=== PATIENT | female | born 1960 | race Caucasian/White ===

== ENCOUNTER 2023-07-08 10:37 | Outpatient (AMB) | payer BC, SELFPAY ==
[2023-07-08 10:44] VITALS: BP 110/68; PULSE 70; O2SAT 94; BMI 37.8
--- NOTE | 2023-07-08 10:44 | MHC.OFFVIS ---
Vital Signs 07/08/23 10:44 Height 5 ft 4 in Weight 220 lb BMI 37.8 BP 110/68 Blood Pressure Location Lt brachial Position Sitting Pulse 70 Pulse Source Pulse Oximeter Pulse Oximetry (%) 94 Oxygen Delivery Method Room Air Intake Visit Reasons: Pulmonary Nodules Med Aide Required: No Allergies No Known Allergies Allergy (Verified 07/08/23 10:47) HPI Comments Details: The patient is here for a pulmonary evaluation. The patient is a 62 year woman with the former history of smoking. Apparently she had an almost CT scan of the chest. Back in 2021 the patient was having cough. She did have a CT scan of the chest which I personally reviewed. There was not at [facility] radiology imaging. The patient had multiple pulmonary nodules largest 8 mm in size. Some of the nodules appear to be ground-glass in nature and some degree of pneumonitis. In addition to that she did have some scarring of the right mid and lower area. Primarily in the periphery. The patient denied any radiation exposure or any history of interstitial lung disease. As far as exposures the patient has had allergy testing that has been positive. 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 She quit smoking many years ago. Based on her abnormal CT scan she had a repeat CT scan 01/29/2023 which I personally reviewed. Some of the ground-glass nodular densities subsided suggesting likely that it was a hypersensitivity type of reaction. Could also been smoldering infection. Still though she does have multiple pulmonary nodules largest 1 measuring 6 mm in size. Bilaterally. The patient does have a smoking history and therefore needs to have a repeat CT scan 01/30/2024. The patient also states that she has episodes of wheezing. Intermittently. She does use a rescue inhaler. She also has nasal congestion suggesting chronic allergic rhinitis. She does use nasal sprays. Will go ahead and start her on Singulair to see if that provides her some relief indeed she may have component of asthma. Although currently her respiratory exam is unremarkable. The patient can use the singular seasonally. In addition to that just before leaving the patient mentioned that she just remove the tick this morning. She has not aware of how long she had it for. But did leave a rash. This is concerning for the possibility of tick-borne diseases. The patient throw away the taking therefore we do not have any idea of the appearance. She has not sure if it looked like a deer tick. She is going to call her primary care doctor. Meantime I did send her doxycycline and I did put him for Lyme test. [facility] Medical History (Updated 07/08/23 @ 22:09 by Christian Solo MD) Wheezing Rash Pulmonary nodules Social History (Updated 07/08/23 @ 10:50 by CHARI Stuart) Patient Tobacco Use Status: Former Tobacco user Tobacco use type: Cigarette Years Smoked: 9 Years Review of Systems Const Denies fever(s) Eyes Reports no additional complaints ENT Reports nasal congestion Card Denies chest pain and Reports dyspnea on exertion Resp Reports cough, Reports dyspnea on exertion and Reports wheezing GI Reports no additional complaints Musc Reports no additional complaints Skin/Breast Reports rash Neuro Reports no additional complaints Krzysztof/Lymph Reports no additional complaints Aller/Immun Reports wheezing Physical Exam Vital Signs: Last Vital Signs Pulse 70 07/08/23 10:44 BP 110/68 07/08/23 10:44 Pulse Ox 94 07/08/23 10:44 Oxygen Delivery Method Room Air 07/08/23 10:44 BMI result Body Mass Index 37.8 Const General: comfortable Orientation/consciousness: patient oriented x3 HEENT Head: Yes normocephalic Neck Neck: Yes full ROM and Yes supple Chest Chest palpation & inspection: normal inspection of the chest Resp Effort & Inspection: normal respiratory effort Auscultation: clear to auscultation bilaterally Cardio Heart sounds: S1 normal heart sound present and S2 normal heart sound present GI Palpation (GI): Soft to palpation Skin Lesions: lesion noted Neuro General: patient oriented x3 Extrem General: Yes no clubbing, cyanosis or edema Assessment & Plan Assessment & Plan (1) Tick bite: Code(s): W57.XXXA - Bitten or stung by nonvenomous insect and other nonvenomous arthropods, initial encounter Category: Medical Qualifiers: Encounter type: initial encounter Site of tick bite: thigh Laterality: left Qualified Code(s): S70.362A - Insect bite (nonvenomous), left thigh, initial encounter; W57.XXXA - Bitten or stung by nonvenomous insect and other nonvenomous arthropods, initial encounter (2) Rash: Code(s): R21 - Rash and other nonspecific skin eruption Category: Medical (3) Pulmonary nodules: Code(s): R91.8 - Other nonspecific abnormal finding of lung field Category: Medical (4) Wheezing: Code(s): R06.2 - Wheezing Category: Medical Plan continue JOSE start Singulair CT chest 01/2024 consider PFTS Will call PCP regarding Tick exposure. Left a rash. Not sure how long she had it attached. Sent her Doxycycline and Lyme bloodwork. Should call PCP for further guidance consider allergy testing f/U Jan 2024 Orders: Orders CT chest wo IV con 01/26/24 R91.8 - Other nonspecific abnormal finding of lung field Lyme IgG/IgM w/reflex to WB Today R21 - Rash and other nonspecific skin eruption, W57.XXXA - Bitten or stung by nonvenomous insect and other nonvenomous arthropods, initial encounter Medications: New montelukast (Singulair) 10 mg PO BEDTIME 30 tabs 11RF 30 days J45.909 - Unspecified asthma, uncomplicated doxycycline hyclate 100 mg PO BID 42 tabs 0RF 21 days Coding Level of Care Code New Pt Level 4 (55801) Diagnoses Tick bite of left thigh, initial encounter S70.362A; W57.XXXA Encounter type: initial encounter Site of tick bite: thigh Laterality: left Rash R21 Pulmonary nodules R91.8 Wheezing R06.2 Time Spent (min) 40
== END 2023-07-08 11:12 | disposition home or self-care (01) ==
PROVIDERS: PCP Nurse Practitioner; Referring Provider Nurse Practitioner; Visit Provider Hospitalist
DX: S70.362A Insect bite (nonvenomous), left thigh, initial encounter (principal); W57.XXXA Bitten or stung by nonvenomous insect and other nonvenomous arthropods, initial encounter; R21 Rash and other nonspecific skin eruption; R91.8 Other nonspecific abnormal finding of lung field; R06.2 Wheezing
CPT/HCPCS: 99204

== ENCOUNTER 2023-07-08 10:37 | Outpatient (REF) | payer BC, SELFPAY ==
[2023-07-09 20:28] LABS: Lyme Abs Screen <0.90 index
== END 2023-07-08 10:38 | disposition home or self-care (01) ==
LOC: HO.LAB 10:37
PROVIDERS: PCP Nurse Practitioner; Referring Provider Nurse Practitioner; Visit Provider Hospitalist
DX: S70.362A Insect bite (nonvenomous), left thigh, initial encounter (principal); W57.XXXA Bitten or stung by nonvenomous insect and other nonvenomous arthropods, initial encounter; R21 Rash and other nonspecific skin eruption; R91.8 Other nonspecific abnormal finding of lung field; R06.2 Wheezing
CPT/HCPCS: 36415; 86617; 86618

== ENCOUNTER 2024-03-11 09:03 | Outpatient (AMB) | payer MEDICARE, BC, SELFPAY ==
--- NOTE | 2024-03-11 09:08 | A.OFFVIS_ITS ---
Vital Signs 03/11/24 09:09 Height 5 ft 4 in Weight 221 lb 9.033 oz BMI 38.0 BP 118/66 Blood Pressure Location Rt brachial Position Sitting Pulse 69 Pulse Source Pulse Oximeter Pulse Oximetry (%) 94 Oxygen Delivery Method Room Air Intake Visit Reasons: Pulmonary Nodules Allergies No Known Allergies Allergy (Verified 03/11/24 09:12) HPI Comments Details: The patient is a 63 year woman with the former history of smoking. Apparently she had an almost CT scan of the chest. Back in 2021 the patient was having cough. She did have a CT scan of the chest which I personally reviewed. There was not at [facility] radiology imaging. The patient had multiple pulmonary nodules largest 8 mm in size. Some of the nodules appear to be ground-glass in nature and some degree of pneumonitis. In addition to that she did have some scarring of the right mid and lower area. Primarily in the periphery. The patient denied any radiation exposure or any history of interstitial lung disease. As far as exposures the patient has had allergy testing that has been positive. 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 She quit smoking many years ago. Based on her abnormal CT scan she had a repeat CT scan 01/29/2023 which I personally reviewed. Some of the ground- glass nodular densities subsided suggesting likely that it was a hypersensitivity type of reaction. Could also been smoldering infection. Still though she does have multiple pulmonary nodules largest 1 measuring 6 mm in size . Bilaterally. The patient does have a smoking history and therefore needs to have a repeat CT scan 01/30/2024. The patient also states that she has episodes of wheezing. Intermittently. She does use a rescue inhaler. She also has nasal congestion suggesting chronic allergic rhinitis. She does use nasal sprays. Will go ahead and start her on Singulair to see if that provides her some relief indeed she may have component of asthma. Although currently her respiratory exam is unremarkable. The patient can use the singular seasonally. In addition to that just before leaving the patient mentioned that she just remove the tick this morning. She has not aware of how long she had it for. But did leave a rash. This is concerning for the possibility of tick-borne diseases. The patient throw away the taking therefore we do not have any idea of the appearance. She has not sure if it looked like a deer tick. She is going to call her primary care doctor. Meantime I did send her doxycycline and I did put him for Lyme test. 03/11/2024 the patient is here for a pulmonary follow-up visit. Overall she is doing okay. She still having coughing spells. Sometimes the coughing spells can be pretty significant. She does have the rescue inhaler that she does not use it regularly. She has been using the singular. The patient did have a CT scan of the chest recently and we did personally review it and we also reviewed the other last 2 CT scans prior to that. She has underlying pulmonary nodules that appeared to be fairly unchanged. Although she does have areas of ground-glass opacities suggesting some pneumonitis primarily in the right hemithorax. On further questions she is exposed to mold. She does have a issue with her bathroom that does have ?black mold?. 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 Based on her pulmonary nodules appeared to be inflammatory in nature. Her cough also appears to be more bronchospastic. Will going to start her on Wixela and will also request blood work including hypersensitivity panel allergy testing for mold among others. Will also have the patient have undergo pulmonary function studies and then will reassess in afterwards. [facility] Medical History (Updated 03/11/24 @ 19:57 by Christian Solo MD) Pneumonitis SCOTT (obstructive sleep apnea) Wheezing Rash Pulmonary nodules Social History Patient Tobacco Use Status: Former Tobacco user Tobacco use type: Cigarette Years Smoked: 9 Years Review of Systems Const Denies fever(s) Eyes Reports no additional complaints ENT Reports nasal congestion Card Denies chest pain and Reports dyspnea on exertion Resp Reports cough, Reports dyspnea on exertion and Reports wheezing GI Reports no additional complaints Musc Reports no additional complaints Skin/Breast Reports rash Neuro Reports no additional complaints Krzysztof/Lymph Reports no additional complaints Aller/Immun Reports wheezing Physical Exam Vital Signs: Last Vital Signs Pulse 69 03/11/24 09:09 BP 118/66 03/11/24 09:09 Pulse Ox 94 03/11/24 09:09 Oxygen Delivery Method Room Air 03/11/24 09:09 BMI result Body Mass Index 38.0 Const General: comfortable Orientation/consciousness: patient oriented x3 HEENT Head: Yes normocephalic Neck Neck: Yes full ROM and Yes supple Chest Chest palpation & inspection: normal inspection of the chest Resp Effort & Inspection: normal respiratory effort Auscultation: clear to auscultation bilaterally Cardio Heart sounds: S1 normal heart sound present and S2 normal heart sound present GI Palpation (GI): Soft to palpation Skin Lesions: lesion noted Neuro General: patient oriented x3 Extrem General: Yes no clubbing, cyanosis or edema Assessment & Plan Assessment & Plan (1) Pulmonary nodules: Code(s): R91.8 - Other nonspecific abnormal finding of lung field Category: Medical (2) Wheezing: Code(s): R06.2 - Wheezing Category: Medical (3) SCOTT (obstructive sleep apnea): Code(s): G47.33 - Obstructive sleep apnea (adult) (pediatric) Category: Medical (4) Pneumonitis: Code(s): J98.4 - Other disorders of lung Category: Medical (5) Allergies: Code(s): T78.40XA - Allergy, unspecified, initial encounter Category: Medical Qualifiers: Encounter type: initial encounter Qualified Code(s): T78.40XA - Allergy, unspecified, initial encounter Plan continue JOSE continue Singulair bloodwork and allergies PFTs start Wixela daily f/U 3-4 months Orders: Orders Sjogren's Antibodies Today J98.4 - Other disorders of lung, R91.8 - Other nonspecific abnormal finding of lung field, T78.40XA - Allergy, unspecified, initial encounter Resp Allergy Profile Region I Today J98.4 - Other disorders of lung, R91.1 - Solitary pulmonary nodule, R91.8 - Other nonspecific abnormal finding of lung field, T78.40XA - Allergy, unspecified, initial encounter NADER Reflex Titer and Pattern Today J98.4 - Other disorders of lung, R91.8 - Other nonspecific abnormal finding of lung field, T78.40XA - Allergy, unspecified, initial encounter Cyclic Citrullinated Peptide Today J98.4 - Other disorders of lung, R91.8 - Other nonspecific abnormal finding of lung field, T78.40XA - Allergy, unspecified, initial encounter Immunoglobulin E Today J98.4 - Other disorders of lung, R91.8 - Other nonspecific abnormal finding of lung field, T78.40XA - Allergy, unspecified, initial encounter Hypersensitive Pneumonitis Prf Today J98.4 - Other disorders of lung, R91.8 - Other nonspecific abnormal finding of lung field, T78.40XA - Allergy, unspecified, initial encounter Erythrocyte Sedimentation Rate Today J98.4 - Other disorders of lung, R91.8 - Other nonspecific abnormal finding of lung field, T78.40XA - Allergy, unspecified, initial encounter PFT pulmonary function test Today R06.2 - Wheezing Medications: New fluticasone propion-salmeterol 250-50 mcg/dose (Wixela Inhub) 1 inh inhalation Q12H 60 ea 11RF 30 days Coding Level of Care Code Est Pt Level 4 (17195) Complex EM visit Add On G2211 Diagnoses Pulmonary nodules R91.8 Wheezing R06.2 SCOTT (obstructive sleep apnea) G47.33 Pneumonitis J98.4 Allergy, initial encounter T78.40XA Encounter type: initial encounter Time Spent (min) 17
[2024-03-11 09:09] VITALS: BP 118/66; PULSE 69; O2SAT 94; BMI 38.0
--- OUTSIDE RECORDS SUMMARY | 2024-03-11 12:03 | XMS_ITS | Encounter Summary ---
Author Organization [facility] Address [id number] [place] [phone] Care Team Providers Care Chief Growth Officer Name Role Phone Unavailable Primary Care Provider Unavailabl e Encounter Details Date Type Department Care Team (Late st Contact Info) Description 12/25/2023 Lab Requisition [facility] - Main Lab [address] [place] [phone] Dilma Hart NP [address] [facility] [address] [place] [address] Urinary tract infection, site not specified Social History Tobacco Use Types Packs/Day Years Used Date Smoking Tobacco: Never Assessed Sex and Gender Information Value Date Recorded Sex Assigned at Not on file Gender Identity Not on file Sexual Orientation Not on file documented as of this encounter Plan of Treatment Not on file documented as of this encounter Procedures Procedure Name Priority Date/Time Associated Diagnosis Comments BACTERIAL IDENTIFICATION AND SUSCEPTIBILITY, AEROBIC Routine 12/24/2023 12:00 AM EST Urinary tract infection, site not specified documented in this encounter Results * Bacterial identification and susceptibility, aerobic (12/24/2023 12:00 AM EST) Culture, Bacterial ID and Sensitivity Light Normal Urogenital mireya. 12/25/2023 12:48 PM EST [facility] Other Urine specimen from urinary conduit / Unknown 12/24/2023 12/25/2023 11:54 AM EST Dilma Hart NP LAB MICROBIOLOGY - GENERAL ORDERABLES [facility] [address] [place] [address], documented in this encounter Visit Diagnoses Diagnosis Urinary tract infection, site not specified documented in this encounter
--- OUTSIDE RECORDS SUMMARY | 2024-03-11 12:04 | XMS_ITS | Encounter Summary ---
Author Organization [facility] Address [id number] [place] [phone] Care Team Providers Care Critical Power Install Technician Name Role Phone Unavailable Primary Care Provider Unavailabl e Encounter Details Date Type Department Care Team (Late st Contact Info) Description 02/20/2024 Lab Requisition [facility] - Main Lab [address] [facility] [place] [phone] Berto Andrew PA [address] [facility] [address] [place] [address] Dysuria Social History Tobacco Use Types Packs/Day Years [...] Comments BACTERIAL IDENTIFICATION AND SUSCEPTIBILITY, AEROBIC Routine 02/19/2024 12:00 AM EST Dysuria documented in this encounter Results * (ABNORMAL) Bacterial identification and susceptibility, aerobic (02/19/2024 12:00 AM EST) Culture, Bacterial ID and Sensitivity Escherichia coli(A) AFRICA 02/21/2024 10:55 AM EST [facility] Other Urine specimen from urethra / Unknown 02/19/2024 02/20/2024 10:43 AM EST Narrative Organism Antibiotic Method Susceptibility Escherichia coli Amoxicillin/Clavulanate AFRICA 4 ug/ml: Susceptible Escherichia coli Ampicillin/Sulbactam AFRICA 16 ug/ml: Intermediate Escherichia coli Piperacillin/Tazobactam AFRICA <=4 ug/ml: Susceptible Escherichia coli Cefazolin (Urine) AFRICA 8 ug/ml: Susceptible Escherichia coli Cefoxitin AFRICA <=4 ug/ml: Susceptible Escherichia coli Ceftazidime AFRICA <=0.5 ug/ml: Susceptible Escherichia coli Ceftriaxone AFRICA <=0.25 ug/ml: Susceptible Escherichia coli Cefepime AFRICA <=0.12 ug/ml: Susceptible Escherichia coli Meropenem AFRICA <=0.25 ug/ml: Susceptible Escherichia coli Amikacin AFRICA 2 ug/ml: Susceptible Escherichia coli Gentamicin AFRICA <=1 ug/ml: Susceptible Escherichia coli Ciprofloxacin AFRICA <=0.06 ug/ml: Susceptible Escherichia coli Levofloxacin AFRICA <=0.12 ug/ml: Susceptible Escherichia coli Nitrofurantoin AFRICA <=16 ug/ml: Susceptible Escherichia coli Trimethoprim/Sulfamethoxazole AFRICA >=320 ug/ml: Resistant Berto LUND LAB MICROBIOLOGY - G ENERAL ORDERABLES [facility] [address] [place] [address], documented in this encounter Visit Diagnoses Diagnosis Dysuria documented in this encounter
--- OUTSIDE RECORDS SUMMARY | 2024-03-11 12:04 | XMS_ITS | Data Portability ---
Author Organization [facility], , [facility] Address [address] [place] [address] Care Team Providers Care Rehab Consultant Name Role Phone CATRACHITA PRADO Primary Care Provider [phone] MARTIN COVARRUBIAS Medical Oncologist [facility] Sleep Me dicine [facility] Urologist Assessment No assessment recorded. Plan of Treatment Reminders Order Date Submit Date Provider Last Modified By Organization Details Last Modified Time Details Appointments Wellnes s Visit 30 2024 10:30A M KEVON TAYLOR Not available Not available Not available Lab CBC 2023 024 [facility], [address] [place] [address], [address], 01/22/2024 12:34:49 TSH, serum or plasma 2023 024 [facility], [address] [place], [address], 01/28/2024 12:56:19 Referral orthope dic surgeon referra l - b/l shoulde r pain for last year, recent x ray at [facility] for b/l shoulde rs, has had cortz shots 2023 024 [facility], [address] [facility], [place], [address], 02/12/2024 10:43:[address]i st referra l 2023 024 [email or web address] [facility], [address] [facility], [address], [place], [address], 10/31/2023 13:39:54 cardiol ogist referra l - 63 yo w dyspnea on exertio n 2023 024 [facility], [address], [address], [place], [address], 01/26/2024 10:37:56 sleep medicin e referra l - scott, needs repeat sleep study 2024 025 [facility], [address] [facility], [address], [place], [address], 03/10/2024 09:41:58 Procedures None recorde d. Surgeries None recorde d. Imaging XR, chest - NIGHT SWEATS AND DYSPNEA W EXERTIO N 2023 024 [facility] ([facility]), [address], [place], [place], [address], 01/22/2024 13:21:53 electro cardiog howard 2023 024 [facility], [address], [place], [address], 01/22/2024 13:21:53 US, echocar diogram - 5'4 , 216lbs, no pacerHX OF HTN, AND DYSPNEA ON EXERTIO N 2023 024 [email or web address] [facility], [address] [place], [address], 01/23/2024 14:10:50 XR, chest - persist ent cough x 3 weeks 2024 025 [facility] (Imaging), [address], [place], [address], 02/17/2024 13:51:41 home sleep study - SCOTT and has not had repeat sleep study in several years and has lost weight 2024 025 [email or web address] [facility], [address] [facility], [place], [address], 03/08/2024 12:19:55 Medication Orders trazodo ne 100 mg tablet [address] [facility]43182, [address] [place], [place], [id number], 08/25/2023 12:22:53 Wegovy 2.4 mg/0.75 mL subcuta neous pen injecto r [address]/Ph[facility] #2025, [address] [place], [address], 09/16/2023 15:42:00 buspiro ne 5 mg tablet [address] [facility]26154, [address] [place], [place], [id number], 08/25/2023 12:16:53 lorazep am 0.5 mg tablet [address] [facility] #20485, [address], [place], [id number], 08/25/2023 12:16:57 meloxic am 15 mg tablet [address] [facility] #99841, [address] [place], [place], [id number], 01/23/2024 19:41:01 lidocai ne 5 % topical patch [address] [facility] #92670, [address], [place], [id number], 10/30/2023 15:14:26 ondanse solis 4 mg disinte grating tablet [address] [facility] #95747, [address] [place], [place], [id number], 01/22/2024 11:24:52 lorazep am 0.5 mg tablet [address] [facility] #47126, [address] [place], [place], [id number], 01/22/2024 11:24:56 benzona barboza 200 mg capsule [address] [facility] #32740, [address] [place], [place], [id number], 03/08/2024 08:27:44 codeine 10 mg-guai fenesin 100 mg/5 mL oral liquid [address] [facility] #03210, [address] [place], [place], [id number], 02/17/2024 12:46:48 flutica sone propion ate 50 mcg/act uation nasal spray,s uspensi on [address] [facility] #63028, [address] [place], [place], [id number], 02/17/2024 12:46:52 Wegovy 0.25 mg/0.5 mL subcuta neous pen injecto r [address] [facility] #23836, [address] [place], [place], [id number], 03/08/2024 08:59:26 buspiro ne 10 mg tablet [address] [facility] #65057, [address] [place], [place], [id number], 03/08/2024 08:59:32 Patient TargetsNo targets recorded. Patient Instructions Encounter Date Encounter Id Patient Instructions Last Modified By Organization Details Last Modified Time 08/25/2023 [id number] Information on HEART HEALTH discussed today: Heart disease is the leading cause of in [place]. The [place] [employer] (AHA) recommends at least 150 minutes (2.5 hours) of heart-pumping physical activity per week. Only about one in five adults and teens get enough exercise to maintain good health. Being more active can help all people think, feel and sleep better and perform daily tasks more easily. Visit the [place] [employer] website for more information below: Copy and paste this website address into your browser for more information. https://www.heart .org/en/healthy-l iving/fitness/fit ness-basics/aha-r sfm-vmm-fqqsdkws- bbffnmww-oa-aemwf s A 51.[employer] website for exercise at home discussed today is: Senior Murguia by Agnieszka on Tarisa This link below is a 1 mile walk. She has many different exercise routines. Copy and paste this website address below into your browser for the 1 Mile Walk. https://www.SCYFIX/watch?v=Wy ySxMt4URQ MOVEME NT IS MEDICINE--------- -- Not available 08/25/2023 12:13:52 10/30/2023 [id number] Information on HEART HEALTH discussed today: Heart disease is the leading cause of in [place]. The [place] [employer] (AHA) recommends at least 150 minutes (2.5 hours) of heart-pumping physical activity per week. Only about one in five adults and teens get enough exercise to maintain good health. Being more active can help all people think, feel and sleep better and perform daily tasks more easily. Visit the [place] [employer] website for more information below: Copy and paste this website address into your browser for more information. https://www.heart .org/en/healthy-l iving/fitness/fit ness-basics/aha-r zwp-hqx-tqydrqub- idrygyos-sc-rvtbv s A great [employer] website for exercise at home discussed today is: Senior Blade Aaron on Tarisa This link below is a 1 mile walk. She has many different exercise routines. Copy and paste this website address below into your browser for the 1 Mile Walk. https://www.SCYFIX/watch?v=Wy mCsZx7VNJ MOVEME NT IS MEDICINE--------- -- Not available 10/30/2023 15:15:16 01/22/2024 [id number] Discussed role transition in May; recommend seeing Nancy This dictation was performed using voice recognition software. Word substitution may have occurred, and may have gone unnoticed and uncorrected. Not available 01/25/2024 16:36:05 03/08/2024 [id number] Information on HEART HEALTH discussed today: Heart disease is the leading cause of in [place]. The [place] [employer] (AHA) recommends at least 150 minutes (2.5 hours) of heart-pumping physical activity per week. Only about one in five adults and teens get enough exercise to maintain good health. Being more active can help all people think, feel and sleep better and perform daily tasks more easily. Visit the [place] [employer] website for more information below: Copy and paste this website address into your browser for more information. https://www.heart .org/en/healthy-l iving/fitness/fit ness-basics/aha-r mrc-mqq-dcfvyycs- sdfwwnpu-gd-uuzpc s A great [employer] website for exercise at home discussed today is: Senior Shape by Agnieszka on [employer] This link below is a 1 mile walk. She has many different exercise routines. Copy and paste this website address below into your browser for the 1 Mile Walk. https://www.Money Forward.[employer]/watch?v=Wy oGzZm1KIF MOVEME NT IS MEDICINE--------- -- Not available 03/08/2024 08:54:30 Reason for Referral Orthopedic Surgeon Referral for Bilateral shoulder joint pain b/l shoulder pain for last year, recent x ray at [facility] for b/l shoulders, has had cortz shots Referring Physician: Catrachita Prado, Family Medicine, Encounter Date: 10/30/2023 Physical Therapist Referral for Bilateral shoulder joint pain Referring Physician: Catrachita Prado, Family Medicine, Encounter Date: 10/30/2023 Steeple Jack Referral for Dy spnea on exertion 63 yo w dyspnea on exertion Referring Physician: Catrachita Prado [facility], Encounter Date: 01/22/2024 Sleep Medicine Referral for Sleep apnea scott, needs repeat sleep study Referring Physician: Catrachita Prado [facility], Encounter Date: 03/08/2024 Results Created Date Observation Date Name Description Value Unit Range Abnormal Flag Note LastModifiedBy Organization Detail LastModifiedTime 01/22/2001/22/2024 CBC WBC 8.11 K/??L 3.98-1 0.04 Not Available [address], [address], 01/22/2024 12:34:49 01/22/20 24 01/22/2024 CBC RBC 4.71 M/??L 3.93-5 .22 Not Available [address], [address], 01/22/2024 12:34:49 01/22/20 24 01/22/2024 CBC HGB 14.6 g/dL 11.2-1 5.7 Not Available [address], [address], 01/22/2024 12:34:49 01/22/20 24 01/22/2024 CBC HCT 43.3 % 34.1-4 4.9 Not Available [address], [address], 01/22/2024 12:34:49 01/22/20 24 01/22/2024 CBC MCV 91.9 fL 79.4-9 4.8 Not Available [address], [address], 01/22/2024 12:34:49 01/22/20 24 01/22/2024 CBC MCH 31.0 pg 25.6-3 2.2 Not Available [address], [address], 01/22/2024 12:34:49 01/22/20 24 01/22/2024 CBC MCHC 33.7 g/dL 32.2-3 5.5 Not Available [address], [address], 01/22/2024 12:34:49 01/22/20 24 01/22/2024 CBC plt 217 K/??L 182-36 9 Not Available [address], [address], 01/22/2024 12:34:49 01/22/20 24 01/22/2024 CBC MPV 10.2 fL 9.4-12 .3 Not Available [address], [address], 01/22/2024 12:34:49 01/22/20 24 01/22/2024 CBC neut% 54.5 % 34.0-7 1.1 Not Available [address], [address], 01/22/2024 12:34:49 01/22/20 24 01/22/2024 CBC neut# 4.42 1.56-6 .13 Not Available [address], [address], 01/22/2024 12:34:49 01/22/20 24 01/22/2024 CBC lymph % 31.1 % 19.3-5 1.7 Not Available [address], [address], 01/22/2024 12:34:49 01/22/20 24 01/22/2024 CBC lymph # 2.52 K/??L 1.18-3 .74 Not Available [address], [address], 01/22/2024 12:34:49 01/22/20 24 01/22/2024 CBC mono% 12.5 % 4.7-12 .5 Not Available [address], [address], 01/22/2024 12:34:49 01/22/20 24 01/22/2024 CBC mono# 1.01 0.24-0 .56 high Not Available [address], [address], 01/22/2024 12:34:49 01/22/20 24 01/22/2024 CBC eo% 1.2 % 0.7-5. 8 Not Available [address], [address], 01/22/2024 12:34:49 01/22/20 24 01/22/2024 CBC eo# 0.10 0.04-0 .36 Not Available [address], [address], 01/22/2024 12:34:49 01/22/20 24 01/22/2024 CBC baso% 0.2 % 0.1-1. 2 Not Available [address], [address], 01/22/2024 12:34:49 01/22/20 24 01/22/2024 CBC baso# 0.02 0.00-0 .08 Not Available [address], [address], 01/22/2024 12:34:49 01/22/20 24 01/22/2024 CBC RDW-CV 12.5 % 11.7-1 4.4 Not Available [address], [address], 01/22/2024 12:34:49 01/22/20 24 01/22/2024 CBC Ig% 0.500 % 0.000- 1.500 Ig % >0.5 Indic ates possi ble Left Shift Not Available [address], [address], 01/22/2024 12:34:49 01/22/20 24 01/22/2024 CBC Ig# 0.040 0.000- 0.093 Not Available [address], [address], 01/22/2024 12:34:49 01/22/20 24 01/22/2024 CBC NRBC% 0.0 % 0.0-0. 2 Not Available [address], [address], 01/22/2024 12:34:49 01/22/20 24 01/22/2024 CBC NRBC# 0.000 0.000- 0.012 Not Available [address], [address], 01/22/2024 12:34:49 01/22/20 24 01/23/2024 LIPID PANEL cholesterol 236 mg/dL <200 mg/dl Rand able 200-2 39 mg/dl Borde rline High >240 mg/dl High Not Available [address], [address], 01/23/2024 15:35:40 01/22/20 24 01/23/2024 LIPID PANEL triglyceride s 87 mg/dL <150 mg/dL Nette l 150-1 99 mg/dL Borde rline High 200-4 99 mg/dL High >500 mg/dL Very High Not Available [address], [address], 01/23/2024 15:35:40 01/22/20 24 01/23/2024 LIPID PANEL direct HDL 77 mg/dL <40 mg/dl - Major Risk for CHD >60 mg/dl - Negat dominique Risk for CHD Not Available [address], [address], 01/23/2024 15:35:40 01/22/20 24 01/23/2024 RENAL PANEL glucose 96 mg/dL 70-100 Not Available [address], [address], 01/23/2024 15:35:41 01/22/20 24 01/23/2024 RENAL PANEL BUN 19 mg/dL 7-18 high Not Available [address], [address], 01/23/2024 15:35:41 01/22/20 24 01/23/2024 RENAL PANEL creatinine 0.7 mg/dL 0.8-1. 3 low Not Available [address], [address], 01/23/2024 15:35:41 01/22/20 24 01/23/2024 RENAL PANEL B/C 27.1 ratio Not Available [address], [address], 01/23/2024 15:35:41 01/22/20 24 01/23/2024 RENAL PANEL GFR >=60ML /MIN mL/mi n normal >=60m L/min - Nette l or midly reduc ed <60mL /min- Decre ased kidne y funct ion <15mL /min - Kidne y failu re [facility] calcu lates estim ated Glome rular Filtr ation Rate (eGFR ) using the Chron ic Kidne y Disea se Epide miolo gy Colla borat ion (CKD- EPI) Equat ion (Shea r et. al 2020) as recom cathi d by the Natio nal Kidne y Found ation . eGFR is based on age, serum creat inine , and sex. CKD-E PI does not calcu late eGFR by race, does not apply to child annette (age <18 years ), and shoul d not be used in pregn shiloh. Not Available [address], [address], 01/23/2024 15:35:41 01/22/20 24 01/23/2024 RENAL PANEL sodium 142 mmol/ L 136-14 5 Not Available [address], [address], 01/23/2024 15:35:41 01/22/20 24 01/23/2024 RENAL PANEL potassium 5.1 mmol/ L 3.5-5. 1 Not Available [address], [address], 01/23/2024 15:35:41 01/22/20 24 01/23/2024 RENAL PANEL chloride 101 mmol/ L 96-107 Not Available [address], [address], 01/23/2024 15:35:41 01/22/20 24 01/23/2024 RENAL PANEL anion gap 10.4 5.0-15 .0 Not Available [address], [address], 01/23/2024 15:35:41 01/22/20 24 01/23/2024 RENAL PANEL CO2 31 mmol/ L 21-32 Not Available [address], [address], 01/23/2024 15:35:41 01/22/20 24 01/23/2024 RENAL PANEL calcium 9.3 mg/dL 8.5-10 .3 Not Available [address], [address], 01/23/2024 15:35:41 01/22/20 24 01/23/2024 RENAL PANEL albumin 4.2 g/dL 3.4-5. 0 Not Available [address], [address], 01/23/2024 15:35:41 01/22/20 24 01/23/2024 RENAL PANEL phosphorous 4.00 mg/dL 2.50-4 .90 Not Available [address], [address], 01/23/2024 15:35:41 01/22/20 24 01/23/2024 URIC ACID uric acid 5.0 mg/dL 2.6-6. 0 Not Available [address], [address], 01/23/2024 15:35:42 01/22/20 24 01/23/2024 DIREC T LDL direct LDL 138 mg/dL RISK CATEG ORY LDL GOAL _ CHD or CHD Risk Equiv alent s <100 mg/dl (10-y ear risk >20%) 2+ Risk Facto rs <130 mg/dl (10-y ear risk <= 20%) 0-1 Risk Facto r??? <160 mg/dl ??? Almos t all peopl e with 0-1 risk facto r have a 10 year risk <10%, thus 10 year risk asses ment in peopl e with 0-1 risk facto r is not philipp mccray. Not Available [address], [address], 01/23/2024 15:35:43 01/22/20 24 01/28/2024 TSH TSH 2.30 uIU/m L 0.50-6 .00 The Ameri can Colle ge of Endoc rinol ogy and Ameri can Thyro id Assoc iatio n recom mend goal TSH value s betwe en 0.4-4 .0 mIU/m L. Not Available [address], [address], 01/28/2024 12:56:19 01/22/20 24 01/28/2024 VITAM IN D 25-HY DROXY TOTAL vitamin D 25-hydroxy EIA 33.4 NG/mL 20.0-9 9.9 Thera py is based on measu remen t of total 25-OH D, with level s less than 20 ng/mL indic ative of Vitam in D defic iency . Level s betwe en 20ng/ mL and 30 ng/mL sugge st insuf ficie ncy. Optim al Level s are great er than 30 ng/mL . Not Available [address], [address], 01/28/2024 12:56:20 01/22/20 24 01/22/2024 elect rocar diogr am No observ ation record ed. [facility] [address] [facility], [place], [address], 01/22/2024 15:15:42 01/22/20 24 elect rocar diogr am No observ ation record ed. Not Available 2023 21:05:10 01/22/20 24 01/22/2024 XR, chest CLINIC AL HISTOR Y: Night sweats and LANCE. TECHNI QUE: Fronta l view and latera l view of the chest obtain ed. COMPAR KLEBER: Decemb er 2021, June 09, 2020, Octobe r 2019. FINDIN GS: The heart is normal in size and config uratio n.Ther e is no hilar or medias tinal enlarg ement. There is no focal lung consol idatio n or infilt rate. The bony thorax is intact . IMPRES ENMANUEL: No acute diseas e. Nereyda jackson Physic leo: Mohamud Odell [address] (Imaging) [address] [place], [address], 02/05/2024 08:50:38 02/16/19 25 02/17/2024 XR, chest CLINIC AL HISTOR Y: Persis tent Cough. TECHNI QUE: Fronta l view and latera l view of the chest obtain ed. COMPAR KLEBER: Decemb er 2023 FINDIN GS: The heart is normal in size and config uratio n.Ther e is no hilar or medias tinal enlarg ement. There is no focal lung consol idatio n or infilt rate. The bony thorax is intact . IMPRES ENMANUEL: No acute diseas e. Nereyda jackson Physic leo: Mohamud Odell [facility] (Imaging) [address] [place], [address], 02/24/2024 14:07:58 03/05/19 25 03/04/2024 trans -thor acic echoc ardio gram (TTE) (PROC ) No observ ation record ed. [facility] [address] [place], [address], 03/07/2024 20:03:10 Result Notes None recorded. Problems Name Problem SNOMED Code Status Onset Date Resolution Date Notes Provider Name and Address Organization Details Recorded Time Herpes zoster 0924713 Completed 12/30/2012 Not Available [facility] 3 02:02:58 Cough 35476394 Active Catrachita Prado NP [address] [place] [address], [address] , [facility] 10:15:28 Gastroes ophageal reflux disease 565408726 Active 2016 Catrachita Prado NP [address] [place] [address], [address] , [facility] 2 10:15:28 Irritabl e bowel syndrome 79309692 Active 2016 Catrachita Prado NP [address] [place] [address], [address] , [facility] 2 10:15:28 Divertic ulosis of duodenum 192726782 Active [address] Kahlil Prado NP [address] [place] [address], [address] , [facility] 2 10:15:28 Bursitis of shoulder 823078537 Active 2017 R- dr gonsalez as[ 03/25/17- cortz inj. ] Catrachita Prado NP [address] [place] [address], [address] , [facility] 2 10:15:28 Colonosc opy Active 2018 2016 CSCOPE WNL, REPEAT IN 10 YRS Catrachita Prado NP [address] [place], [address] , [facility] 2 10:15:28 Hemorrho ids 17070662 Active 2018 ON SCOPE 2016. Catrachita Prado NP [address] [place], [address] , [facility] 2 10:15:27 Factor V deficien cy 7213054 Active [address] Jenise Harris for flights over 6 ours per. While flying, get up every 1.5 hours and walk around, increase fluids, and wear compress ion stocking s. Catrachita Prado NP [address] [place] [address], [address] , [facility] 4 20:53:58 Chest pain 50341808 Active 2018 Nuclear stress test wnl, 05/26/18 Catrachita Prado NP [address] [place] [address], [address] , [facility] 10:15:27 Impaired fasting glycemia 824352300 Active 2018 Catrachita Prado NP [address] [place] [address], [address] , [facility] 2 10:15:27 Depressi ve disorder 98899207 Active 2019 Catrachita Prado NP [address] [place] [address], [address] , [facility] 10:15:27 Osteopor osis 88989247 Active [address] Kim Pardo NP [address] [place] [address], [address] , [facility] 2 10:15:27 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 Mild on BA swallow, dr morley, 11/18/19 Catrachita Prado NP [address] [place] [address], [address] , [facility] 10:15:27 Hyperten sive disorder 32975956 Active 2019 Catrachita Prado NP [address] [place] [address], [address] , [facility] 10:15:27 Insomnia 157468838 Active 2020 Catrachita Prado NP [address] [place] [address], [address] , [facility] 2 10:15:27 Ex-smoke r 4074745 Active 2020 Catrachita Prado NP [address] [place] [address], [address] , [facility] 4 21:12:17 Sleep apnea 49189838 Active 2020 cpap Catrachita Prado NP [address] [place], [address] , [facility] 4 11:30:56 Prediabe brandie 219647777 Active 2020 Catrachita Prado NP [address] [place], [address] , [facility] 2 10:15:27 Morbid obesity 150256363 Active 2021 BMI > or = 35 with diagnosi s of hyperten enmanuel RADHAMES Villarreal, [facility] 2 14:21:56 Multiple nodules of lung 662591844 Active 202207/12/23 Dr Fabio olmstead; 01/25/20 CT scan-no further CT recommen ded as nodules have not changed. Stopped smoking in 2009 Catrachita Prado NP [address] [place], [address] , [facility] 4 19:33:38 Gout 44681679 Active 2023 Catrachita Praod NP [address] [place], [address] , [facility] 4 11:27:39 Essentia l hyperten enmanuel 85883312 Active 2023 * Catrachita Prado NP [address] [place], [address] , [facility] 4 16:35:51 Obesity 783771490 Completed 200611/23/2021 Removal Reason: Morbid obesity added to the problem list RADHAMES Villarreal, [facility] 2 14:21:18 Common cold 23847390 Completed 200612/30/2012 Not Available [facility] 3 02:00:30 Chest pain 57545085 Completed 12/30/2012 Catrachita Prado NP [address] [place] [address], [address] , [facility] 2 10:15:27 Temporom andibula r joint disorder 65611453 Active Catrachita Prado NP [address] [place] [address], [address] , [facility] 2 10:15:28 Allergic rhinitis 24665787 Active 2006 Catrachita Prado NP [address] [place] [address], [address] , [facility] 2 10:15:28 Cellulit is and abscess of upper arm 669732613 Completed 200612/30/2012 Not Available [facility] 3 02:03:57 Acute tonsilli tis 31461759 Completed 200612/30/2012 Not Available [facility] 3 02:04:15 Left upper quadrant pain 176561405 Completed 12/30/2012 Not Available [facility] 3 02:03:59 Disorder of hair AND/OR hair follicle Active 2007 Catrachita Prado NP [address] [place] [address], [address] , [facility] 2 10:15:28 Problem Notes None recorded. Procedures Surgical History Date Name Laterality Status Provider Name and Address Organization Details Recorded Time 08/25/19 24 Cardiovascular disease risk reduction counseling completed [place], [address], [facility] 08/25/2023 12:06:40 05/12/19 24 [id number] robel Prado NP [address] [place] [address], [address], [facility] 05/12/2023 15:58:38 04/07/19 24 [id number] robel Prado NP [address] [place] [address], [address], [facility] 04/07/2023 11:44:03 06/12/19 22 prevention-cardiov ascular risk reduction counseling completed Catrachita Prado NP [address] [place] [address], [address], [facility] 06/11/2021 19:15:45 06/12/19 22 prevention-annual alcohol misuse screening completed Catrachita Prado NP [address] [place], [address], [facility] 06/11/2021 19:15:40 06/09/19 21 prevention-cardiov ascular risk reduction counseling completed Gaby Solorzano [facility] 06/08/2020 12:04:02 06/09/19 21 prevention-annual alcohol misuse screening completed Gaby Solorzano [facility] 06/08/2020 12:04:02 01/30/20 16 Colonoscopy completed Catrachita Prado NP [address] [place] [address], [phone], [facility] 02/01/2016 09:00:19 Imaging Results Imaging Date Name Status LastModified by Organization Details LastModified Time 01/22/2024 electrocardiogram completed [address], [address], 01/22/2024 15:15:42 01/22/[address] [facility] Informa tion not available 01/25/2024 21:05:10 01/22/2024 XR, chest completed [address] (Imaging) [address] [place], [id number], 02/05/2024 08:50:38 02/17/2024 XR, chest completed [facility] (Imaging) [address] [place], [address], 02/24/2024 14:07:58 03/04/2024 trans-thoracic echocardiogram (TTE) (PROC) completed [address], [address], 03/07/2024 20:03:10 Procedure Notes None recorded. Medical Equipment None Reported. Allergies Allergen ID Allergen Name Allergen Category Reaction Reaction Severity Criticality Documentation Date Start Date Code Code System Note Provider Name and Address Organization Details Recorded Time 60958 codeine medicatio n itching Not available Not available 02/04/2010 2670 RxNorm Not Available [facility] 1 06:05:41 Medications Name Sig Start Date Stop Date Status Note LastModified by Organization Details LastModified Time Prescript ion - Prior Authoriza tion Request active Not Available Not Available Not Available fluoxetin e 40 mg capsule TAKE 1 CAPSULE BY MOUTH EVERY DAY active Not Available Not Available No t Available amoxicill in 500 mg capsule take 1 capsule by mouth three times a day until finished active Not Available Not Available No t Available buspirone 5 mg tablet TAKE 1 TABLET BY MOUTH TWICE DAILY active Not Available Not Available No t Available desonide 0.05 % topical cream APPLY EXTERNAL LY TO THE AFFECTED AREA TWICE DAILY FOR UP TO 7 DAYS 06/11 completed Not Available Not Available Not Available irbesarta n 150 mg-hydroc hlorothia zide 12.5 mg tablet TAKE 1/2 TABLET BY MOUTH EVERY DAY active Not Available Not Available No t Available trazodone 50 mg tablet TAKE 1 AND 1/2 TABLETS BY MOUTH AT BEDTIME NEEDED 08/24 completed Not Available Not Available Not Available fluconazo le 150 mg tablet TAKE 1 TABLET BY MOUTH THEN REPEAT 72 HOURS 04/07 completed Not Available Not Available Not Available benzonata te 200 mg capsule TAKE 1 CAPSULE BY MOUTH THREE TIMES DAILY FOR 10 DAYS NEEDED FOR COUGH 03/08 completed Not Available Not Available Not Available hydrocodo ne 5 mg-acetam inophen 325 mg tablet take 1 to 2 tablets by mouth every 4 to 6 hours if needed for pain active Pt. states was for dental work only. Not Available Not Available Not Available Keflex 500 mg capsule Take 1 capsule 3 times a day by oral route for 5 days. 08/28 completed Not Available Not Available Not Available fluconazo le 200 mg tablet TAKE 1 TABLET BY MOUTH DAILY 02/16 completed Not Available Not Available Not Available meloxicam 15 mg tablet Take 1 tablet every day by oral route as needed, for severe shoulder pain. 01/22 completed Not Available Not Available Not Available ondansetr on HCl 4 mg tablet TAKE 1 TABLET BY MOUTH EVERY 6 HOURS NEEDED 03/03 completed not taking 09/09/22 SM not taking 02-14-22 SM PRN Not Available Not Available Not Available famotidin e 40 mg tablet 04/07 completed Not Available Not Available Not Available clonazepa m 0.5 mg tablet TAKE 1 TABLET BY MOUTH TWICE DAILY active Not Available Not Available No t Available fluoroura cil 5 % topical cream APPLY A THIN FILM TO AFFECTED AREAS OF LIP TWICE A DAY FOR 10 TO 14 DAYS DIRECTED .WASH HANDS AFTER APPLYING 11/06 completed no longer taking 06/08/20t ng Not Available Not Available Not Available fluoxetin e 10 mg tablet TAKE 1 TABLET BY MOUTH ONCE DAILY 07/15 completed TAKING W/ 20 MG FLUOXETI NE Not Available Not Available Not Available clindamyc in HCl 150 mg capsule TAKE 1 CAPSULE BY MOUTH 4 TIMES A DAY active Not Available Not Available No t Available valacyclo vir 500 mg tablet TAKE 1 TABLET BY MOUTH DAILY active Not Available Not Available No t Available ciproflox acin 500 mg tablet TAKE 1 TABLET BY MOUTH TWICE A DAY WITH FOOD 04/07 completed Not Available Not Available Not Available bupropion HCl SR 100 mg tablet,12 hr sustained -release TAKE 1 TABLET BY MOUTH EVERY DAY 11/06 completed no longer taking 11/06/20t ng-side effects too disrupti ve Not Available Not Available Not Available Prevacid 30 mg capsule,d elayed release TAKE 1 CAPSULE BY MOUTH ONCE DAILY 11/06 completed Not Available Not Available Not Available cefadroxi l 500 mg capsule 06/11 completed Not Available Not Available Not Available famotidin e 20 mg tablet Take 1 tablet twice a day by oral route. 12/22 completed No longer using Not Available Not Available Not Available lorazepam 0.5 mg tablet TAKE 1 TABLET BY MOUTH EVERY DAY NEEDED active Not Available Not Available No t Available trazodone 100 mg tablet TAKE 1 TABLET BY MOUTH EVERY DAY AT BEDTIME active Not Available Not Available No t Available Gladis 180 mg tablet 2008 active Take 1.00 tabs daily Not Available Not Available Not Available benzonata te 100 mg capsule TAKE 1 CAPSULES BY MOUTH THREE TIMES A DAY NEEDED FOR 4 DAYS 02/12 completed prn Not Available Not Available Not Available hyoscyami ne sulfate 0.125 mg tablet 06/08 completed no longer taking 06/08/20t ng Not Available Not Available Not Available tobramyci n 0.3 % eye drops INSTILL 1 DROP IN EACH EYE EVERY 4 HOURS 01/22 completed Not Available Not Available Not Available buspirone 10 mg tablet Take 1 tablet twice a day by oral route. 2024 active Not Available Not Available Not Avai lable hydrocodo ne 7.5 mg-acetam inophen 750 mg tablet active Not Available Not Available Not Available clotrimaz ole-betam ethasone 1 %-0.05 % topical cream APPLY TO AFFECTED AREA AND SURROUND ING AREAS OF SKIN 2 TIMES A DA... (REFER TO PRESCRIP TION NOTES). 12/29 completed not using 12/02/18 sj Not Available Not Available Not Available Alrex 0.2 % eye drops,lydia pension 06/04 completed not using 3 xr Not Available Not Available Not Available lidocaine 5 % topical patch APPLY 1 PATCH BY TOPICAL ROUTE ONCE DAILY (MAY WEAR UP TO 12HOURS. ) active Not Available Not Available No t Available polymyxin B sulfate 10,000 unit-trim ethoprim 1 mg/mL eye drops INSTILL 1 DROP INTO BOTH EYES THREE TIMES DAILY 08/24 completed Not Available Not Available Not Available metronida zole 0.75 % topical cream APPLY THIN LAYER TOPICALL Y TO FACE TWICE DAILY DIRECTED 09/21 completed not taking 06/11/21 ds Not Available Not Available Not Available codeine 10 mg-guaife nesin 100 mg/5 mL Syrup Take 10 millilit ers by oral route at bedtime hours as needed for cough. 2009 active Not Available Not Available Not Avai lable fluoxetin e 10 mg capsule TAKE 1 CAPSULE BY MOUTH EVERY MORNING( TAKE WITH 20 MG CAPSULE TO MAKE 30 MG) 09/21 completed Not Available Not Available Not Available Valtrex 1 gram tablet Take 1 tablet every 12 hours by oral route for 5 days. 10/23 completed Not Available Not Available Not Available omeprazol e 20 mg capsule,d elayed release Take 1 capsule every day by oral route. 12/29 completed only takes as needed 12/02/18 sj Not Available Not Available Not Available monteluka st 10 mg tablet TAKE 1 TABLET BY MOUTH AT BEDTIME active Not Available Not Available No t Available codeine 10 mg-guaife nesin 100 mg/5 mL oral liquid TAKE 10 ML BY MOUTH AT BEDTIME NEEDED FOR COUGH active Not Available Not Available No t Available hydrochlo rothiazid e 25 mg tablet take 1 tablet by mouth once daily 01/21 completed Not Available Not Available Not Available mupirocin 2 % topical ointment 2007 active Take 1.00 applics twice daily Not Available Not Available Not Available mirtazapi ne 15 mg tablet take 1 tablet by mouth daily if needed active Not Available Not Available No t Available diazepam 10 mg tablet TAKE 1 TABLET BY MOUTH 1 HOUR BEFORE PROCEDUR E DIRECTED . 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 TO HAVE PREDATOR CONTROL TRAPPER ON DAY OF PROCEDUR E active Not Available Not Available No t Available lisinopri l 10 mg-hydroc hlorothia zide 12.5 mg tablet TAKE 2 TABLETS BY MOUTH EVERY DAY 07/02 completed Not Available Not Available Not Available estradiol 0.01% (0.1 mg/gram) vaginal cream PRN 03/03 completed Not Available Not Available Not Available albuterol sulfate HFA 90 mcg/actua tion aerosol inhaler INHALE 2 INHALATI ONS BY MOUTH EVERY 4 HOURS NEEDED active Not Available Not Available No t Available fluocinon layla 0.05 % topical cream APPLY TOPICALL Y TO THE AFFECTED AREA TWICE DAILY FOR UP TO 2 WEEKS active Not Available Not Available No t Available ondansetr on 4 mg disintegr ating tablet DISSOLVE 1 TABLET ON THE TONGUE EVERY 8 HOURS NEEDED active Not Available Not Available No t Available fluoxetin e 20 mg capsule TAKE ONE CAPSULE BY MOUTH EVERY MORNING WITH 10 MG DOSE TO MAKE 30 MG DAILY 11/06 completed Not Available Not Available Not Available fluticaso ne propionat e 50 mcg/actua tion nasal spray,lydia pension SHAKE LIQUID AND USE 2 SPRAYS IN EACH NOSTRIL EVERY DAY FOR POST NASAL DRIP active Not Available Not Available No t Available doxycycli ne hyclate 100 mg tablet TAKE 1 TABLET BY MOUTH TWICE DAILY FOR 21 DAYS 08/24 completed Not Available Not Available Not Available dicyclomi ne 10 mg capsule 05/02 completed Not Available Not Available Not Available naproxen 500 mg tablet active Not Available Not Available Not Available diazepam 5 mg tablet 03/03 completed Not Available Not Available Not Available amoxicill in 500 mg-potass ium clavulana te 125 mg tablet TAKE 1 TABLET BY MOUTH 2 TIMES A DAY 08/24 completed Not Available Not Available Not Available tobramyci n 0.3 %-dexamet hasone 0.1 % eye drops,lydia pension INSTILL 1 DROP INTO BOTH EYES FOUR TIMES A DAY 11/06 completed Not Available Not Available Not Available hydroxyzi ne pamoate 25 mg capsule Take 1 capsule every day by oral route as needed. 05/02 completed Not Available Not Available Not Available enoxapari n 40 mg/0.4 mL subcutane ous syringe INJECT 40 MG UNDER THE SKIN DAILY PRIOR TO FLIGHT AND PRIOR TO RETURN FLIGHT active Not Available Not Available No t Available cyclospor ine 0.05 % eye drops in a dropperet te INSTILL 1 DROP INTO BOTH EYES TWICE A DAY 03/03 completed Not Available Not Available Not Available nitrofura ntoin monohydra te/macroc rystals 100 mg capsule TAKE 1 CAPSULE BY MOUTH TWICE DAILY 03/08 completed Not Available Not Available Not Available trospium 20 mg tablet TAKE 1 TABLET BY MOUTH TWICE DAILY IN THE MORNING AND IN THE EVENING ON AN EMPTY STOMACH DIRECTED FOR URGENCY/ FREQUENC Y 06/04 completed no longer taking 05/03/22 Not Available Not Available Not Available Vesicare 10 mg tablet take 1 tablet by mouth once daily 01/21 completed prn Not Available Not Available Not Available eszopiclo ne 1 mg tablet Take 1 tablet every day by oral route at bedtime for 7 days. active Not Available Not Available No t Available chlorhexi dine gluconate 0.12 % mouthwash RINSE TWICE A DAY for 3 weeks as directed active Not Available Not Available No t Available omeprazol e active Not Available Not Available Not Available Zantac 12/29 completed not taking 12/02/18 sj Not Available Not Available Not Available hydrocodo ne 7.5 mg-acetam inophen 300 mg tablet take 1 to 2 tablets by mouth every 4 to 6 hours if needed for pain active Not Available Not Available No t Available Symbicort 160 mcg-4.5 mcg/actua tion HFA aerosol inhaler inhale 2 puffs by mouth twice a day 11/06 completed Not Available Not Available Not Available Citracal + Vitamin D Maximum 315 mg-6.25 mcg (250 unit) tablet TAKE 1 TABLET BY MOUTH TWICE DAILY 03/03 completed not taking 09/09/22 SM not taking 10/29/22 SM not taking 1-5-23 SM Not Available Not Available Not Available GaviLyte- N 420 gram oral solution 05/02 completed Not Available Not Available Not Available Zyrtec 10 mg capsule Take by oral route. 03/03 completed prn Not Available Not Available Not Available Afluria 8615-9016 (PF) 45 mcg (15 mcg x 3)/0.5 mL intramusc ular syringe inject 0.5 millilit er intramus cularly active Not Available Not Available No t Available Fluvirin 5573-6028 (PF) 45 mcg (15 mcg x 3)/0.5 mL IM syringe inject 0.5 millilit er intramus cularly 11/06 completed Not Available Not Available Not Available Afluria 8564-1121 (PF) 45 mcg(15 mcg x 3)/0.5 mL intramusc ular syringe inject 0.5 millilit er intramus cularly 04/24 completed Not Available Not Available Not Available Flucelvax Quad (PF) 60 mcg (15 mcg x 4)/0.5 mL IM syringe inject 0.5 millilit ers intramus cularly 12/02 completed Not Available Not Available Not Available Fluzone Quad (PF) 60 mcg (15 mcg x 4)/0.5 mL IM syringe ADM 0.5ML IM UTD 11/06 completed Not Available Not Available Not Available Pataday Twice Daily Relief 03/03 completed not taking 09/09/22 SM not taking 1-5-23 SM Not Available Not Available Not Available Wegovy 2.4 mg/0.75 mL subcutane ous pen injector INJECT 2.4 MG EVERY WEEK BY SUBCUTAN EOUS ROUTE FOR 90 DAYS. active Not Available Not Available No t Available Wegovy 1.7 mg/0.75 mL subcutane ous pen injector INJECT 1.7 MG SUBCUTAN EOUSLY ONE TIME PER WEEK 08/24 completed Not Available Not Available Not Available Wegovy 1 mg/0.5 mL subcutane ous pen injector ADMINIST ER 1 MG UNDER THE SKIN EVERY WEEK FOR 4 WEEKS 08/24 completed Not Available Not Available Not Available Wegovy 0.25 mg/0.5 mL subcutane ous pen injector Inject 0.25 mg every week by subcutan eous route. 2024 active Not Available Not Available Not Avai lable Wegovy 0.5 mg/0.5 mL subcutane ous pen injector ADMINIST ER 0.5 MG UNDER THE SKIN EVERY WEEK active Not Available Not Available No t Available Tyrvaya 0.03 mg/spray nasal spray INSTILL 1 SPRAY IN EACH NOSTRIL TWICE DAILY APPROXIM ATELY 12 HOURS APART active Not Available Not Available No t Available Paxlovid 300 mg (150 mg x 2)-100 mg tablets in a dose pack TAKE 3 TABLETS BY MOUTH TWICE DAILY FOR 5 DAYS 02/19 completed stopped 01/08/22 ds Not Available Not Available Not Available Ozempic 0.25 mg or 0.5 mg (2 mg/3 mL) subcutane ous pen injector active Not Available Not Available Not Available Vitals Date Recorded Body height Provider Name an d Address Organization Details Last Updated DateTime 08/25/2023 163.2 cm Sumaya villarreal [facility] 08/25/2023 11:34:57 Date Recorded Body mass index (BMI) Body weight Provider Name and Address Organization Details Last Updated DateTime 08/25/2023 37.8 kg/m2 522137.51 g Sumaay Stokes [facility] 08/25/2023 11:37:14 Date Recorded Heart rate Provider Name an d Address Organization Details Last Updated DateTime 08/25/2023 77 /min Sumaya villarreal [facility] 08/25/2023 11:42:21 Date Recorded Body height Provider Name an d Address Organization Details Last Updated DateTime 10/30/2023 [address] [facility] 10/30/2023 14:35:39 Date Recorded Body mass index (BMI) Body weight Provider Name and Address Organization Details Last Updated DateTime 10/30/2023 37.5 kg/m2 67111.02 g Gaby StewartGreen, Susanna [facility] 10/30/2023 14:36:54 Date Recorded Heart rate Provider Name an d Address Organization Details Last Updated DateTime 10/30/2023 80 /min Gaby Solorzano Susanna [facility] 10/30/2023 14:37:25 Date Recorded Body height Provider Name an d Address Organization Details Last Updated DateTime 01/22/2024 163.2 cm Josselyn De La Cruz MA [facility] 01/22/2024 09:57:53 Date Recorded Body mass index (BMI) Body weight Provider Name and Address Organization Details Last Updated DateTime 01/22/2024 36.9 kg/m2 35655.4 manuel Arcos DorothyJERONIMO [facility] 01/22/2024 09:58:01 Date Recorded Heart rate Provider Name an d Address Organization Details Last Updated DateTime 01/22/2024 74 /min Josselynmickey De La CruzJERONIMO [facility] 01/22/2024 09:59:12 Date Recorded Body height Provider Name an d Address Organization Details Last Updated DateTime 02/17/2024 163.2 cm Delmis Jenkins MA [facility] 02/17/2024 12:21:14 Date Recorded Oxygen saturation Oxygen saturation in Arterial blood by Pulse oximetry Provider Name and Address Organization Details Last Updated DateTime 02/17/2024 96 % 96 % Delmis Diaznateishan JERONIMO [facility] 02/17/2024 12:23:40 Date Recorded Heart rate Provider Name an d Address Organization Details Last Updated DateTime 02/17/2024 66 /min Delmis Diazcaty [facility] 02/17/2024 12:23:38 Date Recorded Body temperature Provider Name a nd Address Organization Details Last Updated DateTime 02/17/2024 98.2 [degF] Delmis Jenkins [facility] 02/17/2024 12:24:07 Date Recorded Body weight Provider Name an d Address Organization Details Last Updated DateTime 02/25/2024 97395.4 manuel Pineda, NICKEL OPERATOR [address] [place] [address], [phone] 02/25/2024 10:27:22 Date Recorded Body height Provider Name an d Address Organization Details Last Updated DateTime 03/08/2024 163.2 cm Jeanna Hook [facility] 03/08/2024 08:04:03 Date Recorded Heart rate Provider Name an d Address Organization Details Last Updated DateTime 03/08/2024 65 /min Jeanna Hook [facility] 03/08/2024 08:06:39 Date Recorded Body mass index (BMI) Body weight Provider Name and Address Organization Details Last Updated DateTime 03/08/2024 37.7 kg/m2 934855.01 g Catrachita Prado, NICKEL OPERATOR [address] [place] [address], [phone], [facility] 03/08/2024 08:25:38 Date Recorded Systolic blood pressure Diastolic blood pressure Provider Name and Address Organization Details Last Updated DateTime 08/25/2023 114 mm[Hg] 68 mm[Hg] Sumaya tSokes [facility] 08/25/2023 11:41:57 Date Recorded Systolic blood pressure Diastolic blood pressure Provider Name and Address Organization Details Last Updated DateTime 10/30/2023 108 mm[Hg] 64 mm[Hg] Gaby Solorzano [facility] 10/30/2023 14:38:12 Date Recorded Systolic blood pressure Diastolic blood pressure Provider Name and Address Organization Details Last Updated DateTime 01/22/2024 110 mm[Hg] 68 mm[Hg] Josselyn De La Cruz [facility] 01/22/2024 09:59:05 Date Recorded Systolic blood pressure Diastolic blood pressure Provider Name and Address Organization Details Last Updated DateTime 02/17/2024 128 mm[Hg] 76 mm[Hg] Delmis Jenkins [facility] 02/17/2024 12:23:12 Date Recorded Systolic blood pressure Diastolic blood pressure Provider Name and Address Organization Details Last Updated DateTime 03/08/2024 122 mm[Hg] 68 mm[Hg] Jeanna Hook [facility] 03/08/2024 08:07:42 Social History Question Answer Notes LastModified by Organization Details LastModified Time Tobacco Smoking Status Former Smoker Quit 2009 wasnt daily smoker. started at 17, would have a few cigs / week. never smoked a pack a day. Catrachita Prado NP [address] [place], [phone], [facility] 04/07/2023 11:33:23 What Is Your Level Of Alcohol Consumption? Moderate Information not available 11/25/2012 What Is Your Level Of Caffeine Consumption? Occasional Information not available 12/13/2014 How Much Tobacco Do You Chew? None Information not available 11/25/2012 What Type Of Diet Are You Following? REGULAR Information not available 12/13/2014 Which Illicit Or Recreational Drugs Have You Used? No Information not available 12/13/2014 Do You Or Have You Ever Used E-cigarettes Or Vape? Never Used Electronic Cigarettes Information not available 11/11/2019 What Is Your Occupation? [employer] Information not available 12/27/2010 When Did You Quit Smoking? 11-15yearssi samina ette Quit In 2009 Information not available 12/27/2021 How Many Days In The Past Year Have You Had A Heavy Drinking Consumption (4+ Female, 5+ Male)? 12 Information not available 07/22/2014 Are There Any Guns Present In Your Home? No [email or web address] Information not available 12/27/2010 Live Alone Or With Others? With Others Information not available 07/22/2014 CSRP - Narcotics No [email or web address] Information not available 08/23/2016 CSRP Contract Signed And Discussed Yes Dc Per EC 08/23/16 Information not available 07/31/2011 Does The Patient Have Difficulty Speaking Bhutanese? No Information not available 07/22/2014 Does The Patient Have Difficulty Reading Bhutanese? No Information not available 07/22/2014 Patient Has Health Care Proxy Signed And In Chart Yes [email or web address] Information not available 04/30/2018 Marital Status Information not available 12/27/2010 Mosquito Repellent Used Routinely Yes Information not available 12/27/2010 What Was The Date Of Your Most Recent Tobacco Screening? 03/08/2024 [email or web address] Information not available 03/08/2024 How Many Children Do You Have? 3 Randi [eye Issue][place]- [employer] [facility]; Jesse 16 [facility]- [employer], Kortney-[employer]; Jim/Portia- [employer]. Information not available 11/28/2010 Seat Belts Used Routinely Yes Information not available 12/27/2010 Smoke Alarm In Home Yes Information not available 12/27/2010 Do You Or Have You Ever Used Smokeless Tobacco? Never Used Smokeless Tobacco Information not available 11/11/2019 General Stress Level Medium Information not available 12/13/2014 Do You Use Sunscreen Routinely? Yes [email or web address] Information not available 12/27/2010 Do You Or Have You Ever Used Any Other Forms Of Tobacco Or Nicotine? No Information not available 09/21/2021 Sex: Unknown Functional Status None recorded. Mental Status None recorded. Family History Relationship Description Onset Age of this Age Resolved Age Notes LastModified by Organization Details LastModified Time Father Myocardial infarction d49 Congen ital heart anomal y. had severa l MD's. Not available 05/27/2018 11:45:46 Mother Malignant tumor of breast 45 previo usly record ed as Cancer -Breas t [email or web address] Not available 12/13/2014 17:05:24 Mother Hypertensive disorder d 72-cir rhosis (previ ously record ed as Hypert ension ) [email or web address] Not available 12/13/2014 17:05:24 Mother Diabetes mellitus dDiabe brandie Not available 08/23/2016 09:54:47 Mother Cirrhosis of liver d cirrho sis 72 ?hep c Not available 01/21/2017 13:58:35 Brother Problem a/w [email or web address] Not available 12/13/2014 17:05:24 Sister Problem factor V Leiden , pulmon naun emboli sm Not available 01/21/2017 13:57:20 Sister Problem Not available 13:57:30 Maternal Grandmother Cerebrovascu lar accident d 87 ca- unknow n type [email or web address] Not available 12/13/2014 17:05:24 Maternal Grandfather Unrelated d 80's [email or web address] Not available 04/2014 17:05:24 Paternal Grandmother Unrelated d40's heart issue [email or web address] Not available 12/13/2014 17:05:24 Paternal Grandfather Unrelated d70's heart, smoker hwzorek Not available 12/13/2014 17:05:24 Paternal Grandfather Myocardial infarction d in laste 70's Not available 05/27/2018 11:45:36 Notes:1 bro 1 sis Medical History Condition Response Diverticulosis Y HEMATOLOGIC Y METABOLIC Y Gynecological HistoryNo gynecological history recorded. Obstetrics History GPAL:G 0 P 0 0 0 0 Immunizations Vaccine Type Date Status Note Provider Nam e and Address Organization Details Recorded Time Influenza, split virus, trivalent, preservative 1 completed Not Available [facility] 02/27/2019 02:33:04 influenza, unspecified formulation 7 completed Not Available [facility] 10/11/2022 10:57:57 influenza, unspecified formulation 7 completed Not Available [facility] 10/11/2022 10:57:57 Influenza, split virus, trivalent, PF 3 completed Not Available [facility] 02/27/2019 02:34:58 Influenza, split virus, trivalent, preservative 2 completed Not Available [facility] 10/11/2022 10:57:57 Influenza, split virus, quadrivalent, PF 6 completed Not Available [facility] [facility] 02/27/2019 02:27:06 influenza, unspecified formulation 4 completed Not Available [facility] 10/11/2022 10:57:57 influenza, unspecified formulation 5 completed Not Available [facility] 10/11/2022 10:57:57 Influenza, split virus, quadrivalent, PF 8 completed Not Available [facility] 02/27/2019 02:35:35 Tdap 0 completed Not Available [facility] 02/27/2019 02:15:21 influenza, unspecified formulation 7 completed Not Available [facility] 10/11/2022 10:57:57 Influenza, split virus, quadrivalent, preservative 9 completed Not Available [facility] 10/11/2022 10:57:57 Td (adult), 2 Lf tetanus toxoid, preservative free, adsorbed 1 completed Catrachita Prado NP [address] [place] [address], [phone], [facility] 06/08/2020 13:00:53 Influenza, split virus, quadrivalent, PF 1 completed CHARI Swain, [facility] 11/06/2020 09:14:54 Influenza, split virus, quadrivalent, preservative 0 completed Not Available [facility] 10/11/2022 10:57:57 COVID-19, mRNA, LNP-S, PF, 30 mcg/0.3 mL dose 1 completed Not Available [facility] 10/11/2022 10:57:57 COVID-19, mRNA, LNP-S, PF, 30 mcg/0.3 mL dose 1 completed Not Available [facility] 10/11/2022 10:57:57 Influenza, split virus, quadrivalent, PF 3 completed Catrachita Prado NP [address] [place] [address], [phone], [facility] 02/19/2022 10:49:43 Influenza, split virus, trivalent, PF 4 completed Catrachita Prado NP [address] [place] [address], [phone], [facility] 10/30/2023 14:51:57 COVID-19, mRNA, LNP-S, PF, 30 mcg/0.3 mL dose 1 completed Not Available [facility] 10/11/2022 10:57:57 Past Encounters Encounter ID Performer Location Encounter Start Date Encounter Closed Date Diagnosis/Indication Diagnosis SNOMED-CT Code Diagnosis ICD10 Code Diagnosis Note [id number] , [facility], OFFICE [address] [place] [address] 6 07/14/2006 10:59:34 07/14/2006 13:28:34 [id number] [facility] - [facility] [address] [place] [facility] [place] [address] 12/05/2006 07:48:33 12/05/2006 08:18:35 [id number] [facility], OFFICE [address] [place] [facility] [place] [address] 12/15/2006 15:55:31 03/02/2008 02:02:29 [id number] [facility], OFFICE [address] [place] [address] 12/20/2006 10:00:52 03/02/2008 02:02:29 [id number] [facility], OFFICE [address] [place] [facility] [place] [address] 01/20/2007 15:36:08 03/02/2008 02:02:29 [id number] [facility], OFFICE [address] [place] [facility] [place] [address] 10/13/2007 11:29:37 03/02/2008 02:02:29 [id number] [facility], OFFICE [address] [place] [facility] [place] [address] 10/20/2007 10:50:50 03/02/2008 02:02:29 [id number] [facility], OFFICE [address] [place] [facility] [place] [address] 10/26/2007 15:08:30 03/02/2008 02:02:29 [id number] [facility], OFFICE [address] [place] [facility] [place] [address] 08/26/2008 09:04:58 09/01/2008 12:01:30 [id number] [facility] - [facility] [address] [place] [facility] [place] [address] 10/28/2008 09:14:43 10/28/2008 11:11:53 [id number] [facility], OFFICE [address] [facility] [place] [address] 08/18/2009 16:25:26 08/23/2009 15:22:10 [id number] [facility], OFFICE [address] [facility] [place] [address] 08/23/2009 10:18:10 08/28/2009 09:07:59 [id number] [facility], OFFICE [address] [place] [facility] [place] [address] 10/04/2009 16:30:11 10/09/2009 12:51:17 [id number] [facility], OFFICE [address] [place] [address] 02/04/2010 09:55:51 02/06/2010 08:32:17 [id number] [facility] [address] [facility] [place] [facility] [place] [address] 02/05/2010 14:02:39 02/06/2010 10:30:24 [id number] [facility], OFFICE [address] [facility] [place] [facility] [place] [address] 6 11/28/2010 10:08:18 11/28/2010 11:22:18 [id number] [facility], OFFICE [address] [facility] [place] [facility] [place] [address] 04/29/2011 14:58:16 04/29/2011 15:34:52 [id number] [facility], OFFICE [address] [facility] [place] [facility] [place] [address] 07/31/2011 17:04:25 08/01/2011 06:50:27 [id number] Catrachita Prado NP , [facility], OFFICE [address] [facility] [place] [facility] [place] [address] 12/03/2011 11:10:52 12/03/2011 12:04:00 [id number] Logan Romero , [facility], OFFICE [address] [facility] [place] [facility] [place] [address] 05/05/2012 09:33:31 05/05/2012 10:24:42 [id number] Catrachita Prado NP , [facility], OFFICE [address] [facility] [place] [facility] [place] [address] 09/09/2012 16:33:02 09/09/2012 17:06:41 [id number] Hyacinth Lanza , [facility], OFFICE [address] [place] [facility] [place] [address] 10/15/2012 17:05:10 10/16/2012 06:53:06 Backache [id number] Shelley Darling NP , [facility], OFFICE [address] [place] [address] 10/27/2012 09:55:16 10/27/2012 10:20:06 Herpes zoster [id number] , [facility], OFFICE [address] [place] [address] 6 11/25/2012 13:34:26 11/25/2012 14:24:23 Influenza vaccine needed [id number] 106 Depressive disorder 81360206 Impaired f asting glycemia 247090577 Adult heal th examination 366933503 see Risk Assesment and Lifestyle Change Couseling section above Obesity 136882905 Lipoma of skin 550916983 [id number] Chery Mar FP, [facility], OFFICE [address] [place] [address] 02/16/2013 16:29:04 02/19/2013 15:42:52 Obesity 095309601 [id number] Catrachita Prado NP FP, [facility], OFFICE [address] [place] [address] 6 02/17/2013 12:12:21 02/17/2013 13:34:09 Anxiety 90375365 [id number] Catrachita Prado NP FP, [facility], OFFICE [address] [place] [address] 6 02/23/2013 16:00:42 02/24/2013 14:55:52 Obesity 237496648 [id number] Catrachita Prado NP FP, [facility], OFFICE [address] [place] [address] 6 03/02/2013 16:02:58 03/03/2013 13:38:47 Obesity 903084397 [id number] Lula VELEZ, [facility], OFFICE [address] [place] [id number] 6 07/20/2013 13:48:42 07/20/2013 14:43:35 Adult health examination 665950703 see Risk Assessment and Lifestyle Change Counseling section above Counseling [id number] Impaired f asting glycemia 502569424 [id number] CHARI Swain FP, [facility], OFFICE [address] [place] [address] 6 11/15/2013 14:01:04 11/15/2013 14:54:07 Depressive disorder 39135234 Stable on meds. Cont w/ current meds. Insomnia 375793600 Switc h to trazodone. Bladder mu scle dysfunction - overactive 757052027 Stable on meds. Cont w/ current meds. [id number] Blanca Phan , [facility], OFFICE [address] [place] [address] 6 12/02/2013 08:20:14 12/02/2013 09:09:15 Dizziness [id number] [facility] [id number] Fabiola Diogo , [facility], OFFICE [address] [place] [address] 6 03/15/2014 13:20:45 03/15/2014 14:16:19 Insomnia 650849729 Switch to vistaril. [id number] [facility], OFFICE [address] [place] [address] 6 07/22/2014 10:03:12 07/22/2014 11:21:33 Adult health examination 567091179 see Risk Assessment and Lifestyle Change Counseling section above Counseling [id number] Screening for malignant neoplasm of cervix 163318628 Obesity 360880179 [id number] Kaylen Martin , [facility], OFFICE [address] [place] [address] 6 11/03/2014 16:50:44 11/03/2014 17:54:35 Lifestyle 051116008 Candidiasis of mouth 48160314 Chelitis Hyperlipidemia 68663258 Cont to work on eating a mediterrae nan diet. Impaired f asting glycemia 767767797 Continue to work on healthy eating. Weight loss will help with lowering your sugar. Depressive disorder 74876650 Stable on meds. Cont w/ current meds. [id number] Lizandro James MD , [facility], OFFICE [address] [place] [address] 6 12/13/2014 16:07:56 12/13/2014 17:04:36 Acute upper respiratory infection 27410026 J06.9 Educated patient that URI is a viral illness of the upper airways. It is not bacterial and does not benefit from antibiotic s. Average duration of URI is 7-10 days but in a recent trial, treatment at 7-10 days of illness with antibiotic s, intranasal steroids, or placebo did not alter natural history at 3 weeks. Recommende d symptomati c treatments including NSAIDS, semi-uprig ht sleep position, antihistam huma at HS, limited course of nasal sympathomi metics and/or cough syrups, and nasal saline rinses with soft squeeze bottle or Neti pot. Return for fevers > 101 for 3 days, worsening sinus pain, or failure to resolve in 2-4 weeks. [id number] Priscilla VELEZ, [facility], OFFICE [address] [place] [address] 6 12/26/2014 12:11:43 12/26/2014 15:22:13 Acute upper respiratory infection 35975289 J06.9 Educated patient that URI is a viral illness of the upper airways. It is not bacterial and does not benefit from antibiotic s. Average duration of URI is 7-10 days but in a recent trial, treatment at 7-10 days of illness with antibiotic s, intranasal steroids, or placebo did not alter natural history at 3 weeks. Recommende d symptomati c treatments including NSAIDS, semi-uprig ht sleep position, antihistam huma at HS, limited course of nasal sympathomi metics and/or cough syrups, and nasal saline rinses with soft squeeze bottle or Neti pot. Return for fevers > 101 for 3 days, worsening sinus pain, or failure to resolve in 2-4 weeks. Cough 12856494 R05 [id number] JUNE Fuller, [facility], OFFICE [address] [place] [address] 6 11/07/2015 13:47:27 11/07/2015 14:40:24 Adult health examination 271678247 Z00.00 see Risk Assessment and Lifestyle Change Counseling section above Counseling 993277323 Z71 .9 Impaired f asting glycemia 457123215 R73.01 Continue to work on healthy eating. Weight loss will help with lowering your sugar. Restless legs 77213317 G 25.81 Insomnia 709935404 G47.0 0 Active or passive immunization 067482299 Z23 [id number] JUNE Fuller, [facility], OFFICE [address] [place] [address] 6 12/19/2015 13:19:14 12/19/2015 15:58:21 Anxiety 61073330 F41.9 [id number] Catrachita Prado NP FP, [facility], OFFICE [address] [place] [phone] 6 05/02/2016 13:37:49 05/03/2016 15:50:07 Anxiety 46932189 F41.9 Insomnia 727293562 G47.0 0 Adult heal th examination 587340897 Z00.00 see Risk Assessment and Lifestyle Change Counseling section above [id number] Catrachita Prado NP FP, [facility], OFFICE [address] [place] [address] 6 08/23/2016 09:10:05 08/23/2016 10:06:38 Impaired fasting glycemia 350086604 R73.01 Continue to work on healthy eating. Weight loss will help with lowering your sugar. Mixed hyperlipidemia 267 840687 E78.2 [id number] Catrachita Prado NP , [facility], OFFICE [address] [place] [phone] 6 01/21/2017 13:25:09 01/21/2017 14:27:57 Adult health examination 619346604 Z00.00 see Risk Assessment and Lifestyle Change Counseling section above Counseling 744876289 Z71 .9 [id number] Yudy Romero MD , [facility], OFFICE [address] [place] [address] 04/24/2017 12:11:16 04/25/2017 09:37:20 Cough 06562479 R05 probably post viral, RTO if worsens or SOB. has used tessalon, albuterol adn delsym in past for cough,. albuterol was best [id number] Agnieszka [place] , [facility], OFFICE [address] [place] [address] 10/22/2017 10:24:18 10/22/2017 11:25:44 Active or passive immunization 811852922 Z23 Anxiety 39222445 F41.9 -discd deep breathing- can use RackWare for relaxation Fatigue 08608371 R53.83 -check labs Low back pain 928994425 M54.5 -to see Dr Bo -tylenol and ice as needed [id number] Justin Morocho MD , [facility], OFFICE [address] [place] [address] 6 04/29/2018 10:38:48 04/29/2018 11:58:06 Obesity 473953755 E66.9 Depression screening 171 304610 Z13.31 Chest pain 81320893 R07. 9 [id number] Agnieszka [place] , [facility], OFFICE [address] [place] [address] 6 05/27/2018 11:05:54 05/27/2018 14:03:05 Adult health examination 264550393 Z00.00 see Risk Assessment and Lifestyle Change Counseling section above Counseling 049335286 Z71 .9 Depression screening 171 585359 Z13.89 depression screening tool administer ed, entered into emr, scored and discussed, time greater than 7.5 minutes Anxiety 31614273 F41.9 -discd deep breathing- can use RackWare for relaxation [id number] Agnieszka [place] , [facility], OFFICE [address] [place] [address] 6 08/25/2018 08:57:33 08/25/2018 09:41:59 Morbid obesity 610530095 E66.01 -will work on losing wt and eating more fruits and vegiesCons idering WW. Active or passive immunization 257465722 Z23 Asthma 036155820 J45.90 9 - Impaired f asting glycemia 723547573 R73.01 Continue to work on healthy eating. Weight loss will help with lowering your sugar. Increased blood pressure 52717985 R03.0 See below. [id number] Lizandro James MD , [facility], OFFICE [address] [place] [id number] 6 10/13/2018 14:14:34 10/14/2018 13:55:52 Anxiety 76023064 F41.9 -discd deep breathing- can use RackWare for relaxation -discussed increase in dementia on lorazepam Snoring 03768007 R06.83 Essential hypertension 03870492 I10 Factor V deficiency 4320 005 D68.2 -While flying, get up every 1.5 hours and walk around, increase fluids, and wear compressio n stockings. [id number] Justin Morocho MD , [facility], OFFICE [address] [place] [phone] 6 12/02/2018 14:44:13 12/02/2018 15:17:21 Acute upper respiratory infection 01310032 J06.9 Educated patient that URI is a viral illness of the upper airways. It is not bacterial and does not benefit from antibiotic s. Average duration of URI is 7-10 days but in a recent trial, treatment at 7-10 days of illness with antibiotic s, intranasal steroids, or placebo did not alter natural history at 3 weeks. Recommende d symptomati c treatments including NSAIDS, semi-uprig ht sleep position, antihistam huma at , limited course of nasal sympathomi metics and/or cough syrups, and nasal saline rinses with soft squeeze bottle or Neti pot. Return for fevers > 101 for 3 days, worsening sinus pain, or failure to resolve in 2-4 weeks. [id number] Lizandro James MD , [facility], OFFICE [address] [place] [phone] 6 12/29/2018 08:50:26 12/29/2018 09:47:43 Essential hypertension 52355210 I10 Gastroesop hageal reflux disease 566993132 K21.9 -trial of lemon juice and prn famotidine [id number] Justin Morocho MD , [facility], OFFICE [address] [place] [phone] 6 01/20/2019 13:33:35 01/20/2019 15:04:46 Acute upper respiratory infection 47201871 J06.9 Cough 48550278 R05 looks like uri, lungs CLEAR. If SOB, or fever or persists another week, would consdier CXR [id number] Lizandro James MD , [facility], OFFICE [address] [place] [phone] 6 02/12/2019 10:45:22 02/12/2019 13:14:01 Essential hypertension 88249461 I10 Morbid obesity 438219993 E66.01 -will work on losing wt and eating more fruits and vegiesCons idering WW. [id number] Justin Morocho MD , [facility], OFFICE [address] [place] [phone] 6 04/07/2019 14:13:25 04/07/2019 16:00:16 Essential hypertension 82097812 I10 [id number] Justin Morocho MD , [facility], OFFICE [address] [place] [address] 06/07/2019 09:01:09 06/10/2019 14:59:53 Essential hypertension 24911966 I10 After a discussion of treatment and medication options, which included considerat ion of the best practices in medicine, a medical plan was provided. The patient's opinions and concerns were included in this treatment plan and goal. 1. Discussed Blood Pressure goals. 2. BP GOAL is under 130/80. Patient IS AT GOAL at home. 3. Reviewed sodium, cardiovasc ular exercise, maintainin g appropriat e weight. Monitor BP at home. Call if BP is consistent ly over 150/90. 4. Continue w/ medication discussed. Patient is in agreement w/ this plan. Call w/ any concerns. 5. Follow up in 2 months. Major depr essive disorder 015559126 F32.9 -stable-co ntinue w/ meds Seasonal a llergic rhinitis 420321768 J30.2 -stable on zyrtec- see instructio ns below [id number] Nicole Wynne NP , [facility], OFFICE [address] [place] [address] 11/11/2019 10:35:40 11/12/2019 09:00:41 Pleuritic pain 3089661 R07.81 Mid sternal pain, worse with inhaling, coughing or movement when in bed. Concerned for clot as she has Factor V leiden and was in car extensivel y last few days.Also discussed ?indigesti on as she has IBS and ate pizza/bage ls in [facility], but she reports indigestio n does not usually last this long.Will have her come into office, assess lungs and order chest Xray - see that visit note for addt'l info. [id number] Priscilla Dinh MD , [facility], OFFICE [address] [place] [address] 11/11/2019 13:28:16 11/12/2019 08:56:10 Pleuritic pain 4351540 R07.81 Mid sternal pain, worse with inhaling, coughing or movement when in bed. Concerned for clot as she has Factor V leiden and was in car extensivel y last few days.Also discussed ?indigesti on as she has IBS and ate pizza/bage ls in [facility], but she reports indigestio n does not usually last this long.Will have her come into office, assess lungs and order chest Xray. Cough & pleuritic pain - [place] in [place] several days - will order COVID test to R/o.discus sed concerning sx and when to seek ED/UC and pt states understand ing - including jaw pain, worsening chest pain, tingling to hand/finge rs [id number] Lizandro James MD , [facility], OFFICE [address] [place] [address] 12/23/2019 16:28:37 01/18/2020 17:55:02 Anxiety 13734703 F41.9 -discd deep breathing- can use RackWare for relaxation -continue to walk-discu ssed increase in dementia on lorazepam Essential hypertension 16767634 I10 After a discussion of treatment and medication options, which included considerat ion of the best practices in medicine, a medical plan was provided. The patient's opinions and concerns were included in this treatment plan and goal. 1. Discussed Blood Pressure goals. 2. BP GOAL is under 130/80. Patient IS AT GOAL at home. 3. Reviewed sodium, cardiovasc ular exercise, maintainin g appropriat e weight. Monitor BP at home. Call if BP is consistent ly over 150/90. 4. Continue w/ medication discussed. Patient is in agreement w/ this plan. Call w/ any concerns. 5. Follow up in 2 months. Insomnia 679992966 G47.0 0 -STABLE ON MEDS [id number] Lizandro James MD , [facility], OFFICE [address] [place] [address] 02/22/2020 12:00:04 02/22/2020 15:37:17 Essential hypertension 62401793 I10 After a discussion of treatment and medication options, which included considerat ion of the best practices in medicine, a medical plan was provided. The patient's opinions and concerns were included in this treatment plan and goal. 1. Discussed Blood Pressure goals. 2. BP GOAL is under 130/80. Patient IS NOT AT GOAL at home. 3. Reviewed sodium, cardiovasc ular exercise, DASH diet, maintainin g appropriat e weight. Monitor BP at home. Call if BP is consistent ly over 150/90. 4. Continue w/ medication discussed. Patient is in agreement w/ this plan. Call w/ any concerns. 5. Follow up in 3 months. 6. Patient will call in- in 1 week after checking blood pressures at home Depressive disorder 2908 9007 F32.0 -stable on medication Insomnia 745516891 G47.0 0 -STABLE ON MEDS Factor V deficiency 4320 005 D68.2 -While flying, get up every 1.5 hours and walk around, increase fluids, and wear compressio n stockings. [id number] Lizandro James MD , [facility], OFFICE [address] [place] [address] 06/08/2020 12:01:33 06/09/2020 10:36:24 Adult health examination 404674571 Z00.00 see Risk Assessment and Lifestyle Change Counseling section above; Cardiovasc ular risk reduction was discussed including benefits and risks of aspirin, exercise goals, healthy eating and healthy weight . Discussion greater than 7.5 minutes. Depression screening 171 250614 Z13.31 depression screening tool administer ed, entered into emr, scored and discussed, time greater than 7.5 minutes Screening for alcohol abuse 654158474 Z13.39 Counseling 228760484 Z71 .89 Essential hypertension 04593204 I10 After a discussion of treatment and medication options, which included considerat ion of the best practices in medicine, a medical plan was provided. The patient's opinions and concerns were included in this treatment plan and goal. 1. Discussed Blood Pressure goals. 2. BP GOAL is under 130/80. Patient IS at home. 3. Reviewed sodium, cardiovasc ular exercise, DASH diet, maintainin g appropriat e weight. Monitor BP at home. Call if BP is consistent ly over 150/90. 4. Continue w/ medication discussed. Patient is in agreement w/ this plan. Call w/ any concerns. 5. Follow up in 3 months. Active or passive immunization 753177315 Z23 Insomnia 232952865 G47.0 0 -STABLE ON MEDS Snoring 72201279 R06.83 After a discussion of treatment and medication options, which included considerat ion of the best practices in medicine, a medical plan was provided. The patient's opinions and concerns were included in this treatment plan and goal. -Number to sleep medicine given and patient instructed to schedule the appointmen t. Referral completed. -If this specialty office requires [facility] to schedule the appointmen t the patient will call our office back and we will have the referrals department schedule it. -Will call with any new concerns or worsening symptoms. Cough 39264179 R05 Fatigue 09991019 R53.83 -check labs-WORK ON HEALTHY EATING-chandler l w any worsening symptoms. [id number] Lizandro Montgomery MD , [facility], OFFICE [address] [place] [phone] 6 11/06/2020 09:03:50 11/07/2020 11:21:35 Depressive disorder 17913406 F32.0 Essential hypertension 90078715 I10 After a discussion of treatment and medication options, which included considerat ion of the best practices in medicine, a medical plan was provided. The patient's opinions and concerns were included in this treatment plan and goal. 1. Discussed Blood Pressure goals. 2. BP GOAL is under 130/80. Pt is NOT at goal. 3. Reviewed sodium, cardiovasc ular exercise, maintainin g appropriat e weight. Monitor Bp at home. Call if BP is consistent ly over 150/90. 4. Continue w/ medication discussed. Patient is in agreement w/ this plan. Call w/ any concerns. 5. Follow up in months. Active or passive immunization 780046874 Z23 Prediabetes 472777900 R7 3.03 Anxiety 87165384 F41.9 -discd deep breathing- can use RackWare or insight timer for relaxation -continue to walk-discu ssed increase in dementia on lorazepam- follow up in one month Hypertensive disorder 38 429813 I10 [id number] Christina Cadet RD, LDN Nutrition -[facility] [address] [place] [address] 11/16/2020 07:59:44 11/17/2020 09:36:50 Prediabetes 457400641 R73.03 Nutrition Diagnosis: {{Excessiv e oral intake (NI 2.2) Exces sive fat intake (NI 5.6.2) Kristin ppropriate Intake of fats (NI 5.6.3) Exc essive carbohydra te intake (NI 5.8.2) Kristin ppropriate intake of types of carbohydra te (NI 5.8.3) Inc onsistent carbohydra te intake (NI 5.8.4) Irvine dequate fiber intake (NI 5.8.5) Alt ered nutrition related laboratory values (NC 2.2)* Over weight/obe sity (NC 3.3) Unint ended weight gain (NC 3.4) Food and nutrition related knowledge deficit (NB 1.1) Not ready for diet/lifes tyle changes (NB 1.3) Self monitoring deficit (NB 1.4) Limit ed adherence to nutrition related recommenda tions (NB 1.6) Nutri tion diagnosis no longer appropriat e}}related to: {{food and nutrition related knowledge deficit, specifical ly? lack of food planning, purchasing and preparatio n skills psy chological causes, specifical ly? physiolo gical causes requiring timing and consistenc y of carbohydra brandie lack of willingnes s to modify previous nutrition recommenda tions inap propriate food preparatio n practices inability or unwillingn ess to purchase or consume fiber containing foods econ omic constraint s that limiting appropriat e foods phys ical inactivity * not ready for diet/lifes tyle changes ex cessive energy intake lac k of prior exposure to accurate nutrition- related informatio n prior exposure to incorrect informatio n inapprop riate intake of concentrat ed sweets and refined carbohydra brandie chroni c use of medication known to cause weight gain loss of appetite awareness medication s that increase appetite, e.g. unwil ling or disinteres jag in reducing l ack of or limited access to healthful food choices fo od and nutrition compliance limitation s}}as evidenced by: self reported dietary recall, with BMI 38, A1C 5.6%, FBS 114 and new dx prediabete s Assessment : Initial virtual nutrition visit for pt with prediabete s, obesity and high BP. She acknowledg es being a healthy eater, but has a sedentary activity level. 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 Occasional sweets, and thinks her daily habit of 2 (regular) gilson ales is unhealthy and realizes needs to change (70 gm sugar - 17 tsp/day). Open to having more seltzer and water. Plans to start walking. Would like to reduce BP meds and lower DM risk, with family hx. Weight goal: 200 lb. Pt counseled on consistent carb diet and reduction of carbs and calories. Covered: - Meal planning basics: choosemypl ate, protein+ca rb combinatio ns, regular meals- Options to increase fiber including whole grains, fruits and vegetables - Role of fiber and protein in stabilizin g blood sugars and providing fullness- Role of a 5-10 % weight loss on reducing insulin resistance and diabetes risk- Portion control guidelines - Importance of incorporat ing 150 minutes or more of regular physical activity/w [place] Handouts: Prediabete s and diabetes (ADA); [place] [facility] Prediabete s; blank food diary form, Mediterran sagar Diet, 10 tips for thoughtful eating, Hunger and fullness scale, Eating right for a healthy weight, Plant based protein review (Nutrition Action) Time spent counseling : 55 minutes Patient agreed to this visit via [employer] secure telehealth platform due to the COVID -19 pandemic. Patient understand s this is a scheduled visit and the usual procedures with regard to billing and confidenti ality apply.Gilma ent was notified that [facility] location: homeDuring the visit the patient? s medical history and medical record were reviewed. [id number] Christina Cadet RD, LDN Nutrition -[facility] [address] [place] [address] 12/25/2020 11:12:55 12/25/2020 19:23:55 Prediabetes [id number] R73.03 Nutrition Diagnosis: {{Excessiv e oral intake (NI 2.2) Exces sive fat intake (NI 5.6.2) Kristin ppropriate Intake of fats (NI 5.6.3) Exc essive carbohydra te intake (NI 5.8.2) Irvine ppropriate intake of types of carbohydra te (NI 5.8.3) Inc onsistent carbohydra te intake (NI 5.8.4) [place]vine dequate fiber intake (NI 5.8.5) Alt ered nutrition related laboratory values (NC 2.2)* Over weight/obe sity (NC 3.3) Unint ended weight gain (NC 3.4) Food and nutrition related knowledge deficit (NB 1.1) Not ready for diet/lifes tyle changes (NB 1.3) Self monitoring deficit (NB 1.4) Limit ed adherence to nutrition related recommenda tions (NB 1.6) Nutri tion diagnosis no longer appropriat e}}related to: {{food and nutrition related knowledge deficit, specifical ly? lack of food planning, purchasing and preparatio n skills psy chological causes, specifical ly? physiolo gical causes requiring timing and consistenc y of carbohydra brandie lack of willingnes s to modify previous nutrition recommenda tions inap propriate food preparatio n practices inability or unwillingn ess to purchase or consume fiber containing foods econ omic constraint s that limiting appropriat e foods phys ical inactivity * not ready for diet/lifes tyle changes ex cessive energy intake lac k of prior exposure to accurate nutrition- related informatio n prior exposure to incorrect informatio n inapprop riate intake of concentrat ed sweets and refined carbohydra brnadie chroni c use of medication known to cause weight gain loss of appetite awareness medication s that increase appetite, e.g. unwil ling or disinteres jag in reducing l ack of or limited access to healthful food choices fo od and nutrition compliance limitation s}}as evidenced by: self reported dietary recall, with BMI 37.5, A1C 5.6% Oct 2020, FBS 114 with dx prediabete s Assessment : Follow up virtual nutrition visit after initial meeting 11/16. Obesity and high BP. She has lost 4 lb in past month. She acknowledg es being a healthy eater, but until November, has been somewhat sedentary. Has started 3 times/wk walking 2 miles. She cooks most meals at home. 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 Has d/c'd former 2/day gilson ales. Occasional baked goods (more recently and with holiday season starting). Would like to reduce BP meds and lower DM risk, with family hx. Stated weight goal: 200 lb. Having some issues with her new CPAP machine and plans to consult w/ Sleep Medicine. Pt counseled on consistent carb diet and reduction of carbs and calories. Covered: - Meal planning basics: choosemypl ate, protein+ca rb combinatio ns, regular meals- Options to increase fiber including whole grains, fruits and vegetables - Role of fiber and protein in stabilizin g blood sugars and providing fullness- Role of a 5-10 % weight loss on reducing insulin resistance and diabetes risk- Importance of incorporat ing 150 minutes or more of regular physical activity/w [place] Handout: Anti-infla mmatory Lifestyle Time spent counseling : 45 minutes Patient agreed to this visit via [employer] platform due to the COVID -19 pandemic. Patient understand s this is a scheduled visit and the usual procedures with regard to billing and confidenti ality apply.Gilma ent was notified that the [facility] location: homeDuring the visit the patient? s medical history and medical record were reviewed. [id number] Lizandro James MD , [facility], OFFICE [address] [place] [address] 06/11/2021 09:52:24 06/11/2021 15:52:47 Adult health examination [id number] Z00.00 see Risk Assessment and Lifestyle Change Counseling section above; Cardiovasc ular risk reduction was discussed including benefits and risks of aspirin, exercise goals, healthy eating and healthy weight . Discussion greater than 7.5 minutes. Depression screening 171 [id number] Z13.31 depression screening tool administer ed, entered into emr, scored and discussed, time greater than 7.5 minutes Screening for alcohol abuse 989812008 Z13.39 Counseling 725572575 Z71 .89 Essential hypertension 44183957 I10 After a discussion of treatment and medication options, which included considerat ion of the best practices in medicine, a medical plan was provided. The patient's opinions and concerns were included in this treatment plan and goal. 1. Discussed Blood Pressure goals. 2. BP GOAL is under 130/80. Pt is NOT at goal. 3. Reviewed sodium, cardiovasc ular exercise, maintainin g appropriat e weight. Monitor Bp at home. Call if BP is consistent ly over 150/90. 4. Continue w/ medication discussed. Patient is in agreement w/ this plan. Call w/ any concerns. 5. Follow up in 1 month FOR NURSE BP CLINIC Anxiety 93225821 F41.9 -STABLE ON PRN MEDS [id number] Lizandro James MD , [facility], OFFICE [address] [place] [address] 07/13/2021 09:17:21 07/13/2021 15:14:14 Morbid obesity 480650600 E66.01 -will work on losing wt and eating more fruits and vegiesCons idering WW. 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 While flying, get up every 1.5 hours and walk around, increase fluids, and wear compressio n stockings. Hyperlipidemia 71759221 E78.5 Cont to work on eating a mediterrae nan diet.- increase fiber -Repeat lab test in 3 months -BP clinic check next week. Stop lisinopril and start irbesartan . [id number] John Mcgraw MD , [facility], OFFICE [address] [place] [address] 09/21/2021 14:42:43 09/25/2021 10:05:03 Acute upper respiratory infection 44631018 J06.9 Educated patient that URI is a viral illness of the upper airways. It is not bacterial and does not benefit from antibiotic s. Average duration of URI is 7-10 days but in a recent trial, treatment at 7-10 days of illness with antibiotic s, intranasal steroids, or placebo did not alter natural history at 3 weeks. Recommende d symptomati c treatments including NSAIDS, semi-uprig ht sleep position, antihistam huma at HS, limited course of nasal sympathomi metics and/or cough syrups, and nasal saline rinses with soft squeeze bottle or Neti pot. Return for fevers > 101 for 3 days, worsening sinus pain, or failure to resolve in 2-4 weeks. Dyspnea 143361028 R06.00 [id number] Lizandro James MD , [facility], OFFICE [address] [place] [address] 10/18/2021 14:34:31 10/18/2021 15:15:12 Essential hypertension 32381272 I10 After a discussion of treatment and medication options, which included considerat ion of the best practices in medicine, a medical plan was provided. The patient's opinions and concerns were included in this treatment plan and goal. 1. Discussed Blood Pressure goals. 2. BP GOAL is under 130/80. Pt is NOT at goal. 3. Reviewed sodium, cardiovasc ular exercise, maintainin g appropriat e weight. Monitor Bp at home. Call if BP is consistent ly over 150/90. 4. RESTART BP MEDS, TAKE 1/2 BID.Dilan t is in agreement w/ this plan. Call w/ any concerns. 5. Follow up in 2 mos Active or passive immunization [id number] Z23 Reminded patient to get Shingles immunizati on at pharmacy today. Prediabetes 171370270 R7 3.03 Sugars in between 100-126 are considered pre-diabet ic and suggest a significan t increase risk of developing diabetes in the future. This is best prevented by decreasing simple sugars in the diet from sweets like soda, juice, candy, and bakery items and simple or white starches like bread, potatoes, rice, and pasta. Exercise and weight loss will help. We will continue to monitor your sugars periodical ly. Please let me know if you would like to see our nutritioni st. Sleep apnea 22226941 G47 .30 -get new CPAP Depressive disorder 3548 9007 F32.0 -stable on meds Leukocytosis 133784413 D 72.829 Hyperlipidemia 07923319 E78.5 Cont to work on eating a mediterrae nan diet.- increase fiber -Repeat lab -BP clinic check next week. [id number] Lizandro James MD , [facility], OFFICE [address] [place] [address] 12/18/2021 08:48:28 12/19/2021 09:29:57 Essential hypertension 49077612 I10 After a discussion of treatment and medication options, which included considerat ion of the best practices in medicine, a medical plan was provided. The patient's opinions and concerns were included in this treatment plan and goal. 1. Discussed Blood Pressure goals. 2. BP GOAL is under 130/80. Pt is NOT at goal. 3. Reviewed sodium, cardiovasc ular exercise, maintainin g appropriat e weight. Monitor Bp at home. Call if BP is consistent ly over 150/90. 4. RESTART BP MEDS, TAKE BP when get home, portal message in w numbers.Kevon zepeda is in agreement w/ this plan. Call w/ any concerns. 5. Follow up in 2 mos Mixed hyperlipidemia 267 068955 E78.2 Active or passive immunization 606681643 Z23 Reminded patient to get Flu here/ has cold today; Shingles immunizati on at pharmacy today. Common cold 89947208 J00 Cold self care measures reviewed and encouraged (fluids, steam inhalation , adequate rest). F/U if sx worsen or aren't resolving. Cough 04747893 R05.9 Prediabetes 760288989 R7 3.03 Sugars in between 100-126 are considered pre-diabet ic and suggest a significan t increase risk of developing diabetes in the future. This is best prevented by decreasing simple sugars in the diet from sweets like soda, juice, candy, and bakery items and simple or white starches like bread, potatoes, rice, and pasta. Exercise and weight loss will help. We will continue to monitor your sugars periodical ly. Please let me know if you would like to see our nutritioni st. [id number] John Mcgraw MD , [facility], OFFICE [address] [place] [phone] 12/27/2021 14:29:50 12/27/2021 16:12:15 COVID-19 989218780 U07.1 Hypertensive disorder 38 323989 I10 Morbid obesity 179674637 E66.01 [id number] Lizandro James MD , [facility], OFFICE [address] [place] [address] 01/08/2022 11:16:09 01/15/2022 14:57:37 COVID-19 560975416 U07.1 Push fluids, rest, tylenol, chicken soup, steam, NS rinse. Follow-up if not improving in 1-weeks or sooner if increasing fever, purulent sputum develop,co ugh worsening. Mucinex to help thin secretions if desired. [id number] Lizandro James MD , [facility], OFFICE [address] [place] [address] 02/19/2022 09:09:37 02/19/2022 09:58:56 Essential hypertension 50965184 I10 After a discussion of treatment and medication options, which included considerat ion of the best practices in medicine, a medical plan was provided. The patient's opinions and concerns were included in this treatment plan and goal. 1. Discussed Blood Pressure goals. 2. BP GOAL is under 130/80. Pt is at goal. 3. Reviewed sodium, cardiovasc ular exercise, maintainin g appropriat e weight. Monitor Bp at home. Call if BP is consistent ly over 150/90. 4. Follow up in 3 mos Active or passive immunization 798234690 Z23 Reminded patient to get Flu here/ has cold today; Shingles immunizati on at pharmacy today. Asthma 060361731 J45.90 9 - Morbid obesity 857920498 E66.01 -will work on losing wt and eating more fruits and vegies Obesity w chronic health risk: BMI >35 with IFG, OA, Hyperlipid emia -continue w healthy habit changes: increase activity and healthy nutrition choices-BM I is 40.1-Goal for BMI is 25-27-call if you want to see the nutritioni st-Aim for about a 5 to 10% weight loss goal - will decrease risk of high blood sugar- 1/2 lb per week is reasonable (on average 2 lb/month) Prediabetes 621851328 R7 3.03 Sugars in between 100-126 are considered pre-diabet ic and suggest a significan t increase risk of developing diabetes in the future. This is best prevented by decreasing simple sugars in the diet from sweets like soda, juice, candy, and bakery items and simple or white starches like bread, potatoes, rice, and pasta. Exercise and weight loss will help. We will continue to monitor your sugars periodical ly. Please let me know if you would like to see our nutritioni st. Depressive disorder 3039 4441 F32.0 -stable on meds-call w any new concerns [id number] Lizandro James MD , [facility], OFFICE [address] [place] [address] 05/03/2022 09:04:38 05/03/2022 13:57:44 Active or passive immunization 918673309 Z23 virtual today Screening mammography [address] Hi orders, due in June Essential hypertension 41253193 I10 After a discussion of treatment and medication options, which included considerat ion of the best practices in medicine, a medical plan was provided. The patient's opinions and concerns were included in this treatment plan and goal. 1. Discussed Blood Pressure goals. 2. BP GOAL is under 130/80. Pt is NOT at goal. 3. Reviewed sodium, cardiovasc ular exercise, maintainin g appropriat e weight. Monitor Bp at home. Call if BP is consistent ly over 150/90. 4. Follow up in 3 mos, will call for bp in 1 week. 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 Patient understand s and is willing to begin medication as prescribed . -Called and left message w Dr Souza office, [facility] nurse will call back w arline lin; - will call patient w informbing n and ok to [facility] [place] [place] for flights over 6 ours per. While flying, get up every 1.5 hours and walk around, increase fluids, and wear compressio n stockings. - give shot day of flight- 1 -2 hours before the flight; *Addendum: Tele call later from Dr Souza nurse anish . She spoke w dr covarrubias and he said there is no other med recommende d for her trip other than lovenox. [facility] [place] [place] for patient w this informatio n on her phone. [id number] Lizandro James MD , [facility], OFFICE [address] [place] [address] 06/04/2022 11:32:51 06/04/2022 12:07:28 Active or passive immunization 320598565 Z23 shingle- reminded Essential hypertension 53986756 I10 After a discussion of treatment and medication options, which included considerat ion of the best practices in medicine, a medical plan was provided. The patient's opinions and concerns were included in this treatment plan and goal. 1. Discussed Blood Pressure goals. 2. BP GOAL is under 130/80. Pt is at goal. 3. Reviewed sodium, cardiovasc ular exercise, maintainin g appropriat e weight. Monitor Bp at home. Call if BP is consistent ly over 150/90. 4. Follow up in 3 mos Dry eyes 200042101 H04.[address] Whitlock- to start new eye drops Anxiety 75486521 F41.9 New medication was discussed today with patient including risks, benefits ,possible and expected side effects. Patient understand s and is willing to begin medication as prescribed . -discussed decreasing lorazepam - could increase risk of dementia- reviewed breathing- increase exercise-c all w any worsening symptoms [id number] Agnieszka [place] , [facility], OFFICE [address] [place] [address] 09/09/2022 14:30:31 09/10/2022 11:03:38 Active or passive immunization 662239452 Z23 Shingrix:r emindedpne umo-remind ed Screening mammography 24 445222 Z12.31 will call and schedule Asthma 690788947 J45.90 9 - Depressive disorder 3548 9007 F32.0 -stable on meds-call w any new concerns Essential hypertension 64526224 I10 After a discussion of treatment and medication options, which included considerat ion of the best practices in medicine, a medical plan was provided. The patient's opinions and concerns were included in this treatment plan and goal. 1. Discussed Blood Pressure goals. 2. BP GOAL is under 130/80. Pt is at goal. 3. Reviewed sodium, cardiovasc ular exercise, maintainin g appropriat e weight. Monitor Bp at home. Call if BP is consistent ly over 150/90. 4. Follow up in 3 mos Anxiety 37291367 F41.9 New medication was discussed today with patient including risks, benefits ,possible and expected side effects. Patient understand s and is willing to begin medication as prescribed . -discussed decreasing lorazepam - could increase risk of dementia- reviewed breathing- increase exercise-c all w any worsening symptoms Multiple n odules of lung 322191152 R91.8 [id number] Lizandro James MD , [facility], [address] [address] [place] [address] 10/29/2022 11:59:49 10/30/2022 08:07:46 Gout 13553809 M10.9 -Repeat uric acid level, if still elevated, will discuss at that time-Hando ut given w/foods to avoid Hypertensive disorder 38 884495 I10 -BP slightly above goal today-BP at home consistent ly in range, will call w/ any elevated readings Depressive disorder 3548 9007 F32.0 -stable on meds-call w any new concerns Gastroesop hageal reflux disease 894219336 K21.9 -stable- continues to monitor diet [id number] Lizandro James MD , [facility], [address] [place] [address] 02/14/2023 10:27:50 02/17/2023 08:30:14 Active or passive immunization 463791666 Z23 Shingrix:r emindedflu -reminded Anti-nucle ar factor detected 943720414 R76.8 After a discussion of treatment and medication options, which included considerat ion of the best practices in medicine, a medical plan was provided. The patient's opinions and concerns were included in this treatment plan and goal. -patient instructed to schedule the appointmen t. Referral completed. -If this specialty office requires [facility] to schedule the appointmen t the patient will call our office back and we will have the referrals department schedule it. -Will call with any new concerns or worsening symptoms. Morbid obesity 439797135 E66.01 -will work on losing wt and eating more fruits and vegies Continue with wegovy weight loss shot Obesity w chronic health risk: BMI >35 with IFG, OA, Hyperlipid emia -continue w healthy habit changes: increase activity and healthy nutrition choices-BM I is 40.1-Goal for BMI is 25-27-call if you want to see the nutritioni st-Aim for about a 5 to 10% weight loss goal - will decrease risk of high blood sugar- 1/2 lb per week is reasonable (on average 2 lb/month) Prediabetes 300447071 R7 3.03 Sugars in between 100-126 are considered pre-diabet ic and suggest a significan t increase risk of developing diabetes in the future. This is best prevented by decreasing simple sugars in the diet from sweets like soda, juice, candy, and bakery items and simple or white starches like bread, potatoes, rice, and pasta. Exercise and weight loss will help. We will continue to monitor your sugars periodical ly. Please let me know if you would like to see our nutritioni st. [id number] Agnieszka [place] , [facility], OFFICE [address] [place] [phone] 03/03/2023 16:46:17 03/04/2023 11:19:41 Upper respiratory infection 29604366 J06.9 Patient presents with symptoms consistent with viral infection. Discussed supportive care: pushing fluids, rest, nasal saline and Mucinex as needed. Encouraged to follow up if symptoms persist for more then 10 days or if they are worsening. Discussed natural course of viral illnesses and lack of evidence for treating with antibiotic s. Sore throat 970069866 J0 2.9 Symptoms seem viral at this point, rapid strep negative, no signs of bacterial infection on examRecomm end continuing supportive careWill contact the office for any worsening symptoms Conjunctivitis 0894038 H 10.9 Discussed likely viral conjunctiv itis, pt will start eye drops as prescribed by her eye doctorWill contact the office for any worsening symptoms [id number] Agnieszka VELEZ, [facility], OFFICE [address] [place] [address] 04/07/2023 11:00:51 04/07/2023 11:42:35 Active or passive immunization 175170427 Z23 Shingrix:r emindedflu -reminded Morbid obesity 400660306 E66.01 -will work on losing wt and eating more fruits and vegies Continue with wegovy weight loss shot Obesity w chronic health risk: BMI >35 with IFG, OA, Hyperlipid emia -continue w healthy habit changes: increase activity and healthy nutrition choices-BM I is 39-Goal for BMI is 25-27-call if you want to see the nutritioni st-Aim for about a 5 to 10% weight loss goal - will decrease risk of high blood sugar- 1/2 lb per week is reasonable (on average 2 lb/month) follow up in 1 month or sooner as needed schedule appt w nursing to learn to administer injection Prediabetes 073206410 R7 3.03 Sugars in between 100-126 are considered pre-diabet ic and suggest a significan t increase risk of developing diabetes in the future. This is best prevented by decreasing simple sugars in the diet from sweets like soda, juice, candy, and bakery items and simple or white starches like bread, potatoes, rice, and pasta. Exercise and weight loss will help. We will continue to monitor your sugars periodical ly. Please let me know if you would like to see our nutritioni st. Multiple n odules of lung [id number] R91.8 After a discussion of treatment and medication options, which included considerat ion of the best practices in medicine, a medical plan was provided. The patient's opinions and concerns were included in this treatment plan and goal. -patient instructed to schedule the appointmen t. Referral completed. -If this specialty office requires G to schedule the appointmen t the patient will call our office back and we will have the referrals department schedule it. -Will call with any new concerns or worsening symptoms. Major depr essive disorder [id number] F32.0 -stable-co ntinue w/ meds [id number] Agnieszka Taylor , [facility], OFFICE [address] [place] [address] 05/12/2023 15:18:20 05/12/2023 16:14:29 Blood coagulation disorder 80165189 D68.2 -stable Morbid obesity [id number] E66.01 -will work on losing wt and eating more fruits and vegies Continue with wegovy weight loss shot Sent to new pharmacy today Obesity w chronic health risk: BMI >35 with IFG, OA, Hyperlipid emia -continue w healthy habit changes: increase activity and healthy nutrition choices-BM I is 39-Goal for BMI is 25-27-call if you want to see the nutritioni st-Aim for about a 5 to 10% weight loss goal - will decrease risk of high blood sugar- 1/2 lb per week is reasonable (on average 2 lb/month) follow up in 3 month or sooner as needed Essential hypertension [id number] I10 After a discussion of treatment and medication options, which included considerat ion of the best practices in medicine, a medical plan was provided. The patient's opinions and concerns were included in this treatment plan and goal. 1. Discussed Blood Pressure goals. 2. BP GOAL is under 130/80. Pt is at goal. 3. Follow up in 3 mos [id number] Agnieszka Taylor , [facility], [address]ICE [address] [place] [address] 08/25/2023 11:29:52 08/25/2023 15:56:43 Active or passive immunization [id number] Z23 Shingrix:r eminded to get at pharmacy Morbid obesity 801063110 E66.01 Continue with wegovy weight loss shot Sent to new pharmacy today Obesity w chronic health risk: BMI >35 with IFG, OA, Hyperlipid emia -continue w healthy habit changes: increase activity and healthy nutrition choices-BM I is 37-Goal for BMI is 25-27-call if you want to see the nutritioni st-Aim for about a 5 to 10% weight loss goal - will decrease risk of high blood sugar- 1/2 lb per week is reasonable (on average 2 lb/month) follow up in 3 month or sooner as needed Counseled by member of primary health care team [id number] Z71.9 Today we discussed ways to reduce your 10-year cardiovasc ular disease risk. Things that decrease risk for cardiovasc ular events include eating a diet high in fiber (fruits and vegetables ) and low in simple carbohydra brandie (bread, rice, pasta, alcohol, potatoes), decreasing processed foods, limiting juice and alcohol, limiting saturated fats (butter, ice cream, and cheeses), and adding regular daily activity. Having blood pressure that is <130/80. Having well controlled cholestero l (LDL and triglyceri alpesh) by eating a healthy diet and taking medication s when necessary. Managing daily stress with meditation or yoga. Depending on your other cardiovasc ular risks your practition er may recommend taking daily aspirin. Anxiety 15468226 F41.9 New medication was discussed today with patient including risks, benefits ,possible and expected side effects. Patient understand s and is willing to begin medication as prescribed . -discussed decreasing lorazepam - could increase risk of dementia- reviewed breathing- increase exercise-c all w any worsening symptoms Insomnia [id number] G47.0 0 -symptoms of insonmina have worsened, increase med today to 100 mg trazodone. [id number] Lizandro James MD , [facility], [address]ICE [address] [place] [address] 10/30/2023 14:28:14 10/30/2023 15:51:20 Active or passive immunization 975271912 Z23 Shingrix:r eminded to get at pharmacy Bilateral shoulder joint pain [id number] M25.511 After a discussion of treatment and medication options, which included considerat ion of the best practices in medicine, a medical plan was provided. The patient's opinions and concerns were included in this treatment plan and goal. -patient instructed to schedule the appointmen t. Referral completed. -If this specialty office requires G to schedule the appointmen t the patient will call our office back and we will have the referrals department schedule it. -Will call with any new concerns or worsening symptoms. Morbid obesity [id number] E66.01 Continue with [employer] weight loss shot Sent to new pharmacy today Obesity w chronic health risk: BMI >35 with IFG, OA, Hyperlipid emia -continue w healthy habit changes: increase activity and healthy nutrition choices-BM I is 37-Goal for BMI is 25-27-call if you want to see the nutritioni st-Aim for about a 5 to 10% weight loss goal - will decrease risk of high blood sugar- 1/2 lb per week is reasonable (on average 2 lb/month) follow up in 3 month or sooner as needed Sleep apnea [id number] G47 .30 -to use CPAP every night [id number] Catrachita Prado NP , [facility], [address]ICE [address] [place] [address] 01/22/2024 09:47:50 01/22/2024 13:21:53 Active or passive immunization 812748965 Z23 Pneumo: Reminded at pharmacy 01/22/24 MWShingles : Reminded at pharmacy Anxiety 41891098 F41.9 Improved on medication Using medication infrequent ly Nausea 936534286 R11.0 Improved on medication Night sweats 71038946 R6 1 -Check labs Dyspnea on exertion 6084 5006 R06.09 EKG today reassuring Most likely related to deconditio ningCheck labs todayEchoc ardiogram ordered, patient will call the hospital if they do not contact Myron garcia referral, patient will schedule the appointmen tReviewed Red Flags & when to seek Urgent Care/Emerg ency Department care. And when to Return To Office. Patient states understand ing & is in agreement with the plan. [id number] John Mcgraw MD , [facility], [address] [place] [address] 02/17/2024 11:56:27 02/19/2024 17:56:12 Upper respiratory infection 01290357 J06.9 Patient presents with symptoms consistent with viral infection. No evidence of pneumonia on exam. Discussed supportive care: pushing fluids, rest, nasal saline and Mucinex as needed. Encouraged to follow up if symptoms persist for more then 10 days or if they are worsening. Discussed natural course of viral illnesses and lack of evidence for treating with antibiotic s. Cough 81755554 R05.9 trial of benzonatat e during the dayrobitus sin with codeine at night/bedt saran - aware of possible sedationCX R today to r/o pneumonia Posterior rhinorrhea 758 61615 R09.82 trial of fluticason e nasal spray to decrease post nasal dripreview ed interactio n list and no interactio n with Tyrvaya nasal spray [id number] John Mcgraw MD , [facility], OFF[address] [place] [address] 03/08/2024 08:01:27 03/08/2024 12:19:55 Sleep apnea 24205800 G47.30 -call sleep apnea company and get new part-discu ssed medical concern for not wearing CPAP and increase risk in heart attacks and stroke Anxiety 72941734 F41.9 Nice to see you, & continue to take Good Care of YOU! After a discussion of treatment and medication options, which included considerat ion of the best practices in medicine, a medical plan was provided. The patient's opinions and concerns were included in this treatment plan and goal. Recommenda tions include: INCREASE THE BUSPIRONE TODAY Continue with cardio vascular exercise 3- 5 times per week (not before bed). Decrease caffeine.I mprove Sleep - GET YOUR SLEEP APNEAthis is a super power: Work on good sleep practice: which includes going to bed at the same time, lowering the lights before bed (to turn on the sleep hormones) NO SCREENS an hour before bed, decrease caffeine AND liquids before bed. Do calming activities before bed like reading a book or magazine, cross word puzzles, adult coloring books or listening to soft music. Call with any worsening symptoms or concerns. 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 The patient's opinions and concerns were included in this treatment plan and goal. 1. Discussed Blood Pressure goals. 2. BP GOAL is under 130/80. Pt is at goal. 3. Follow up in 3 mos Prediabetes 339580854 R7 3.03 a1c is 5.2 improved Sugars in between 100-126 are considered pre-diabet ic and suggest a significan t increase risk of developing diabetes in the future. This is best prevented by decreasing simple sugars in the diet from sweets like soda, juice, candy, and bakery items and simple or white starches like bread, potatoes, rice, and pasta. Exercise and weight loss will help. Please let me know if you would like to see our nutritioni st. Obese class III [id number] 5 E66.813 -continue to work on weight loss and exercise -discussed medical concern for not wearing CPAP and increase risk in heart attacks and stroke Health Concerns Section Related Observation LastModified by Organization Detai ls LastModified Time None Recorded Concern Status LastModified by Organization Details LastModified Time None Recorded Advance Directives Directive None Recorded Payers Encounter Date Sequence Insurance Name Policy Number Policy Gregorio Covered Member ID Gregorio Member ID Guarantor Name 08/25/2023 1 [place] [facility] [id number] Clay Chapman [id number] Catrachita Chapman 10/30/2023 1 [place] [facility] [id number] Clay Chapman [id number] Catrachita Chapman 01/22/2024 1 [place] [facility] Catrachita A Adela [id number] Catrachita Chapman 01/22/2024 1 [facility] (MEDICARE REPLACEMENT/A DVANTAGE - PPO) [id number] Catrachita Chapman [id number] Catrachita Chapman 02/17/2024 1 [facility] (MEDICARE REPLACEMENT/A DVANTAGE - PPO) [id number] Catrachitaelvi Chapman [id number] Catrachitaelvi Chapman 03/08/2024 1 [facility] (MEDICARE REPLACEMENT PPO) [id number] Catrachita A Adela [id number] Catrachita Chapman Notes Date Note Type Note Provider Name and Address Organization Details Recorded Time 08/25/2023 text/html 08/25/23 follow u p on medication/ Wegovy wt when started 234 lbs, now 222. Patient wants to increase the dose Depressinphq 3stable on medsinsomnia - wants incr in trazodone. diarrhea last week intermittenlyno blood in stoolno abd paindiarrhea this a.m.The Josafat does not have diarrhea HTNno cp or sobnot checking bp at home kortney - engaged, egyptianmikayla- 30 oldestjohn- son engaged, ally 05/12/23 Obesityf/u wegovy/prediabetesdoi ng well w medsstill has cravings, gives in, eating lessa little nausea after shotexerc- walking w dogs, nothing formalcant get higher dose of 1.7 mg/ wk and [facility] HTNno cp or sobnot checking bp at home OAseeing rheumatologyhx of Elevated ANAAching all over,wants to see rheum, ref'd has appt w dr ralph repeat uric acid labs, will schedulehad 2 cortisone shots in her shoulders last week Urination frequencyBotox in vaginal area for urinary frequ, dr jackson a weird mass/ lesion and [facility] -KEEPING THE BELOW OFFICE NOTES FOR FUTURE REFERENCE. - 04/07/[id number]-tfil-sjm scheduled for follow-up on labs/weight loss medication Has don 3 mos of shotsstarted wtlost 15 lbs perthe ptPre diabetes/obesityhot inj $1700 shothas lost 11 lbs on shot wants rx so insur covers medHas tried low carb and weight watchers to lose wtThen gains wt backhas prediabetes and htn, sleep, SCOTT - suppose to meet w them sleepHas been tryingWalking 3 -4 x / week; and lite wts few x per week occ but has shoulder px currently HTNNo chest pain or shortness of breath Elevated ANAAching all over,wants to see rheum, ref'd has appt w dr ralph repeat uric acid labs, will schedulehad 2 cortisone shots in her shoulders last week Depressiondoing fine on medsno new concerns IFGa1c 5.2 -KEEPING THE BELOW OFFICE NOTES FOR FUTURE REFERENCE. -Depression/ Anxietyhas good days and bad daysdoes not want to change medications or speak to a therapist at this time, she has too much on her plate Anxietyagain has good days and bad dayis good at taking deep breaths to relieve anxietywill talk herself through it HTNbp slightly elevated in office todaystates stressful morningbps at home consistently in range Gerdcontrolled with med, diet dependent Patient is seen and examined by LESLY Ulrich student.Patient is seen and examined with the above student. Assessment and Plan formulated with the above student collaboratively with the patient. Agnieszka Taylor [address] [place] [address], [place], [address], [facility] 08/27/2023 09:23:27 10/30/2023 text/html ShoulderReported bypatient.Initial Location:anterior Current location:top Initial Quality:dull Initial Severity:pain level 8/10 Duration:12months Onset/Timing:feeling worse; night pain Alleviating factors:NSAIDS Aggravating factors:working away from body, across body, or overhead Current Associated Signs and Symptoms:no numbness; no tingling; no weakness; no popping Previous Injections:helped temporarily Previous PT:helped a little 10/30/23 b/l shoulder painjoint shoulder injectionssee template OSAnot wearing HTNcheck at home and portal bp from homeexerc Jesse getting 11/04[employer] 08/25/23 follow up on medication/ Wegovy wt when started 234 lbs, now 222. Patient wants to increase the dose Depressinphq 3stable on medsinsomnia - wants incr in trazodone. diarrhea last week intermittenlyno blood in stoolno abd paindiarrhea this a.m.The Josafat does not have diarrhea HTNno cp or sobnot checking bp at home kortney - krzysztof, alanna- 30 francis- son engaged, cher James MD [address] [place] [address], [phone], [facility] 10/30/2023 19:47:36 01/22/2024 text/html ShoulderReported bypatient.Initial Location:anterior Current location:top Initial Quality:dull Initial Severity:pain level 8/10 Duration:12months Onset/Timing:feeling worse; night pain Alleviating factors:NSAIDS Aggravating factors:working away from body, across body, or overhead Current Associated Signs and Symptoms:no numbness; no tingling; no weakness; no popping Previous Injections:helped temporarily Previous PT:helped a little 01/22/24 Follow-up medical management New concern:Dyspnea No chest pain but has dyspnea sob feels this is new, Has not noticed this in the past, it happened last week, no cp or palpitations, started w walking. has not happened again. was worried it was her heartexerc walking Occasionally, not much cardio RecentlyHad nuclear stress test 2018- it was fine Feels like hot flash at night, wakes up and is sweatyNot happening during day.dad d at 51 dt MD/congenital issue Obesity -started Wegovy in 2022 at [employer] in [facility] wegovy lost 20 lbs in last year.nausea comes and goes, But is manageable OSAnot wearing - discussed importance, She will start Anxiety and depressionwell controlled Shoulder surgery- at [facility] Jesse getting 11/04[employer] school 10/30/23 b/l shoulder painjoint shoulder injectionssee template OSAnot wearing HTNcheck at home and portal bp from homeexerc Jesse getting 11/04[employer] school 08/25/23 follow up on medication/ Wegovy wt when started 234 lbs, now 222. Patient wants to increase the dose Depressinphq 3stable on medsinsomnia - wants incr in trazodone. diarrhea last week intermittenlyno blood in stoolno abd paindiarrhea this a.m.The Josafat does not have diarrhea HTNno cp or sobnot checking bp at home kortney - engaged, aurykayla- 32 francis- son engaged, cher Catrachita Prado NP [address] [place], [address], [facility] 01/25/2024 16:37:20 02/17/2024 text/html Cough sxs on goi ng since Ag approx x 3 weeks nowPt c/o cough productive w/ SOB and wheezing, diff sleeping, crusty eye, rash face resolved, diarrhea no feverDenies: sore throat, sinus pressure, ear/face pain, vomitingNo recent testing -hot tea and delsym at night not helpfulhas post nasal dripusing albuterol - did not helpnon smoker no vaping John Mcgraw MD [address] [place], [address], [facility] 02/17/2024 14:38:48 03/08/2024 text/html ShoulderReported bypatient.Initial Location:anterior Current location:top Initial Quality:dull Initial Severity:pain level 8/10 Duration:12months Onset/Timing:feeling worse; night pain Alleviating factors:NSAIDS Aggravating factors:working away from body, across body, or overhead Current Associated Signs and Symptoms:no numbness; no tingling; no weakness; no popping Previous Injections:helped temporarily Previous PT:helped a little 03/08/24 f/u on mood / and sleep apnea Sleep apneahas gained wt off of wegovyhas gone to see hypnotist and mass spectrometry manager, has done WT watchers, and gains wt backwas doing well on wegovydiscussed medical concern for not wearing CPAP and increase risk in heart attacks and stroke, wt loss will help sleep apneamissing part, drive over to get new part today, rx sent for new sleep med company Obestiy, prediabetes, HTNReports highest wt was 240, now back up to 221lbsno meds since x mas . Prediabetesglucose control has been better w wt losslast fasting sugar was under 100 Anxiety and depressionfelt very blue thinks dt the cold weatherstress w tenzhao- feels wants increase in buspironeexerc- nonehas tenant - on golf course, has hoarding issue, and they want her out. 01/22/24 Follow-up medical management New concern:Dyspnea No chest pain but has dyspnea sob feels this is new, Has not noticed this in the past, it happened last week, no cp or palpitations, started w walking. has not happened again. was worried it was her heartexerc walking Occasionally, not much cardio RecentlyHad nuclear stress test 2018- it was fine Feels like hot flash at night, wakes up and is sweatyNot happening during day.dad d at 51 dt MD/congenital issue Obesity -started Wegovy in 2022 at [employer] [facility] in [facility] wegovy lost 20 lbs in last year.nausea comes and goes, But is manageable OSAnot wearing - discussed importance, She will start Anxiety and depressionwell controlled Shoulder surgery- at [facility] Jesse getting 11/04Tr[employer] school 10/30/23 b/l shoulder painjoint shoulder injectionssee template OSAnot wearing HTNcheck at home and portal bp from homeexerc Jesse getting 11/04Tr[employer] school 08/25/23 follow up on medication/ Wegovy wt when started 234 lbs, now 222. Patient wants to increase the dose Depressinphq 3stable on medsinsomnia - wants incr in trazodone. diarrhea last week intermittenlyno blood in stoolno abd paindiarrhea this a.m.The Josafat does not have diarrhea HTNno cp or sobnot checking bp at home kortney - engaged, alanna- 30 oldestjohn- son engaged, scary John Mcgraw MD [address] [place] [address], [phone], [facility] 03/08/2024 09:38:25 OBGyn Episode No OBEpisode recorded.
--- OUTSIDE RECORDS SUMMARY | 2024-03-11 12:05 | XMS_ITS | Clinical Summary ---
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 Name Role Phone Unavailable Primary Care Provider Unavailabl e Encounters Date Type Department Care Team Description 02/20/2024 Lab Requisition [facility] [address] [place] [address] Berto Andrew PA Dysuria 12/25/2023 Lab Requisition [facility] [address] [place] [address] Dilma Hart NP Urinary tract infection, site not specified from Last 3 Months Social History Tobacco Use Types Packs/Day Years Used Date Smoking Tobacco: Never Assessed Sex and Gender Information Value Date Recorded Sex Assigned at Not on file Gender Identity Not on file Sexual Orientation Not on file Plan of Treatment Health Maintenance Due Date Last Done Comments Breast Cancer Screening 1960 DTaP,Tdap,and Td Vaccines (1 - Tdap) 1977 Cervical Cancer Screening: P ap Smear 12/13/1979 Zoster Vaccines (1 of 2) 2008 Colorectal Cancer Screening: Colonoscopy 09/02/2023 Depression Screening 09/02/2023 Hepatitis C Screening 09/02/2023 Medicare Annual Wellness Visit 09/02/2023 Osteoporosis Screening (Bone Density Screening) 09/02/2023 Social Influencers of Health Screening 09/02/2023 COVID-19 Vaccine (3 - 2023-2 5 season) 2023 05/08/2020, 04/18/2020 Influenza Vaccine (#1) 2023 Falls Risk Assessment 12/13/2023 Pneumococcal Vaccine: 65+ Years (1 of 1 - PCV) 12/13/2023 RSV Immunization Patients 60 + Years Old (1 - 1-dose 75+ series) 2033 HIB Vaccines Aged Out No longer eligi ble based on patient's age to complete this topic HPV Vaccines Aged Out No longer eligi ble based on patient's age to complete this topic Hepatitis A Vaccines Aged Out No long er eligible based on patient's age to complete this topic Hepatitis B Vaccines Aged Out No long er eligible based on patient's age to complete this topic IPV Vaccines Aged Out No longer eligi ble based on patient's age to complete this topic MMR Vaccines Aged Out No longer eligi ble based on patient's age to complete this topic Meningococcal ACWY Vaccine Aged Out N o longer eligible based on patient's age to complete this topic Pneumococcal Vaccine: Pediatrics (0 to 5 Years) and At-Risk Patients (6 to 64 Years) Aged Out No longer eligible b ased on patient's age to complete this topic RSV Immunization Patients Under 20 months Aged Out No longer eligible b ased on patient's age to complete this topic Varicella Vaccines Aged Out No longer eligible based on patient's age to complete this topic Procedures Procedure Name Priority Date/Time Associated Diagnosis Comments BACTERIAL IDENTIFICATION AND SUSCEPTIBILITY, AEROBIC Routine 02/19/2024 12:00 AM EST Dysuria BACTERIAL IDENTIFICATION AND SUSCEPTIBILITY, AEROBIC Routine 12/24/2023 12:00 AM EST Urinary tract infection, site not specified from Last 3 Months Results * (ABNORMAL) Bacterial identification and susceptibility, aerobic (02/19/2024 12:00 AM EST) Only the most recent of2 resultswithin the time period is included. Culture, Bacterial ID and Sensitivity Escherichia coli(A) [place] 02/21/2024 10:55 AM EST [facility] Other Urine specimen from urethra [...] [facility] LAB MICROBIOLOGY - G ENERAL ORDERABLES [facility] [address] [place] [address], from Last 3 Months
--- OUTSIDE RECORDS SUMMARY | 2024-03-11 12:05 | XMS_ITS | Continuity of Care Document ---
Author Organization [facility] Address [address] [place] [address]- Care Team Providers Care Herb Counselor Name Role Phone Catrachita Prado NP Primary Care Physician Encounter 02/24/24 - 03/02/24 [facility] [address], [facility] [address] [place] [address]- Attending Physician: Christian Solo MD Admitting Physician: Christian Solo MD Referring Physician: Christian Solo MD Encounter Type: OutPatient One Time Allergies, Adverse Reactions, Alerts No Known Allergies Medications Citracal + D 315 mg-250 intl units oral tablet 1 tablet, By Mouth, 2 times a day, # 180 tablet, 2 Refills, Maintenance, 09/25/17 8:30:23 AM EDT, Tablet, [facility], 1 tablet By Mouth 2 times a day,x90 days Start Date: 09/25/17 Stop Date: 06/22/18 Status: Ordered Quantity: 180.0 Unit: tablet Repeat number: 3 enoxaparin 40 mg/0.4 mL injectable solution See Instructions, INJECT 40 MG UNDER THE SKIN DAILY PRIOR TO FLIGHT AND PRIOR TO RETURN FLIGHT, # 2mL, 0 Refills, Maintenance, 11/19/23 9:58:00 AM EDT, [id number], 163, cm, 03/06/23 14:25:00 EST, Height, 105, kg, 03/06/23 14:25:00 EST, Dry Weight Start Date: 11/19/23 Status: Ordered Quantity: 2.0 Unit: mL Repeat number: 1 FLUoxetine 10 mg oral tablet 1 tablet = 10 mg, By Mouth, Daily, 0 Refills, Maintenance, 03/31/19 12:49:00 PM EST Start Date: 03/31/19 Status: Ordered Repeat number: 1 FLUoxetine 20 mg oral tablet 1 tablet = 20 mg, By Mouth, Daily, 0 Refills, Maintenance, 09/29/15 11:45:00 AM EDT Start Date: 09/29/15 Status: Ordered Repeat number: 1 Irbesartan By Mouth, Daily, 0 Refills, Maintenance, 05/16/22 3:45:00 PM EDT, Partial fill upon patient request if the prescription is for a schedule II opioid drug. Start Date: 05/16/22 Status: Ordered Repeat number: 1 Lovenox 40 mg/0.4 mL injectable solution = 40 mg, Subcutaneous Injection, Daily, prior to the flight and prior to the return flight, # 2 each, 0 Refills, Maintenance, 11/12/23 4:25:00 PM EDT, [facility] #[id number], 163, cm, 03/06/23 14:25:00 EST, Height, 105, kg, 03/06/23 14:25:00 EST, Dry Weight Start Date: 11/12/23 Status: Ordered Quantity: 2.0 Unit: each Repeat number: 1 Lovenox 40 mg/0.4 mL subcutaneous solution 0.4 mL = 40 mg, Subcutaneous Injection, Daily, # 0.8 mL, 0 Refills, Maintenance, 12/02/11 4:01:04 PM EDT, Solution, [facility] Start Date: 12/02/11 Stop Date: 12/04/11 Status: Ordered Quantity: 0.8 Unit: mL Repeat number: 1 Prevacid By Mouth, Daily, 0 Refills, Maintenance, 09/29/15 11:45:13 AM EDT Start Date: 09/29/15 Status: Ordered Repeat number: 1 Problem List Condition Confirmation Course Effective Dates Status Health St atus Informant Obese class II Confirmed Active Results Radiology Reports * Exam Date Time Procedure Performing Provider Status 02/24/24 11:[address] Chest W/O Contrast Padmini WynneAdrian Mullins [facility] (Verified) Notes: (CT Chest W/O Contrast) Reason For Exam: R91.8 ABNORMAL FINDING OF LUNG FIELD RESULT: CT Chest W/O Contrast CT Chest W/O Contrast INDICATION: Reason: R91.8 ABNORMAL FINDING OF LUNG FIELD; Clinical Question(s): Other: TECHNIQUE: Helical CT scan of the chest without IV contrast, formatted in 3 planes. Weight-based protocol was performed using automatic exposure control. CTDIvol Body: 5.08 mGy, DLP Body: 184 mGy*cm. COMPARISON: No prior studies, most recently January 23, 2023. FINDINGS: Hse Manager view findings, lines and tubes: None. Trachea and airways: Patent without evidence of tracheal or endobronchial lesion. Lungs and pleura: Innumerable small rounded solid pulmonary nodules, best appreciated on the MIP sequence, unchanged from January 2023 and therefore considered benign. A insurance claims representative right-sided nodule with thin linear attachment of the pleural surface likely representing an intrapulmonary lymph node measures up to 5 mm (series 5 image 194). A insurance claims representative left lower lobe nodule measures 5 mm (series 5 image 373). No new or enlarging nodule. Mild subpleural interstitial reticulation with an anterior basal predominance is unchanged. No effusion or pneumothorax. Mediastinum and francine: No mass or hematoma. No mediastinal or hilar lymphadenopathy. No esophageal abnormality. Heart: Heart is normal in size. No pericardial effusion. No coronary arterial calcifications. Aorta: Mild vascular calcification but no aneurysm. Normal variant two-vessel arch. Pulmonary arteries: Normal caliber. Chest wall soft tissues: No acute abnormality. Diaphragm: Intact. Upper abdomen: No significant abnormality. Bones: No acute abnormality. Mild degenerative changes throughout the spine. No fracture or suspicious lesion. Moderate degenerative changes of the shoulders. IMPRESSION: Stable small pulmonary nodules, considered benign given stability over time. No new or enlarging nodule is identified. No dedicated ongoing follow-up is required. Continued age and risk appropriate screening is recommended. WSN: [id number] Ordering Physician: Christian Solo Dictated By: Davis Carbajal MD Dictated Date/Time: 02/24/24 2:29 pm Reviewed By: Davis Carbajal MD Signed By: Davis Carbajal MD Signed Date/Time: 02/24/24 2:29 pm Transcribed By: TY Transcribed Date/Time: 02/24/24 2:20 pm Social History Social History Type Response Smoking Status Never smoker entered on: 09/28/15 Sex Sex Representation Female (finding) Patient Care team information Care Team Personnel Name: Catrachita Prado NP Position: [facility] Outreach Member Role: PCP Address: [address] [place] [id number]- Telecom: Name: Christian Solo MD Position: [facility] Physician - Pulm/Critical Care Med Service: Pulmonology Member Role: Referring Physician Address: [address] [place] [id number] Telecom: Care Team Related Persons Name: ELIZABETH CASTILLO Insurance Providers Guarantor name: CATRACHITA CASTILLO Health Plan Information #: 1 Payer: MEDICARE PART B OUTPT Member Number: [id number] Policy Number: NA Group Number: NA Health Plan Information #: 2 Payer: [employer] Member Number: [id number] Policy Number: NA Group Number: NA
--- OUTSIDE RECORDS SUMMARY | 2024-03-11 12:05 | XMS_ITS | Continuity of Care Document ---
Author Organization [facility], FP, EHC, OFFICE Address [address] [place] [address] Care Team Providers Care Functional Tester Typewriters Name Role Phone CATRACHITA PRADO Primary Care Provider MARTIN COVARRUBIAS Medical Oncologist [phone] [facility] d[facility] Urologist Assessment No assessment recorded. Plan of Treatment Reminders Order Date Submit Date Provider Last Modified By Organization Details Last Modified Time Details Appointments Wellness Visit 30 2024 10:30A M KEVON TAYLOR Not available Not available Not available Lab None recorded . Referral None recorded . Procedures None recorded . Surgeries None recorded . Imaging XR, chest - persiste nt cough x 3 weeks 2024 025 [facility] (Imaging), [address], [place], [address], 02/17/2024 13:51:41 Medication Orders benzonat ate 200 mg capsule 2024 025 [id number], [address], [place], [id number], 03/08/2024 08:27:44 codeine 10 mg-guaif enesin 100 mg/5 mL oral liquid [address] [id number], [address], [place], [phone], 02/17/2024 12:46:48 fluticas one propiona te 50 mcg/actu ation nasal spray,petty spension 2024 025 [id number], [address], [place], [id number], 02/17/2024 12:46:52 Patient TargetsNo targets recorded. Patient InstructionsNo instructions recorded. Reason for Referral None Reported. Results Created Date Observation Date Name Description Value Unit Range Abnormal Flag Note LastModifiedBy Organization Detail LastModifiedTime 01/22/20 24 01/22/2024 elect rocar diogr am No observ ation record ed. [facility] [address] [facility], [place], [address], 01/22/2024 15:15:42 01/22/20 elect rocar diogr am No observ ation [...] The bony thorax is intact . IMPRES TENISHA: No acute diseas e. Readcameron jackson Physic leo: Mohamud Odell [facility] (Imaging) [address], [place], [address], 02/05/2024 08:50:38 02/16/19 25 02/17/2024 XR, chest [...] The bony thorax is intact . IMPRES TENISHA: No acute diseas e. Nereyda Youngblood leo: Mohamud Odell [facility] (Imaging) [address], [place], [address], 02/24/2024 14:07:58 03/05/19 25 03/04/2024 trans -thor acic echoc ardio gram (TTE) (PROC ) No observ ation record ed. [place] [address] [place], [address], 03/07/2024 20:03:10 Result Notes None recorded. Problems Name Problem SNOMED Code Status Onset Date Resolution Date Notes Provider Name and Address Organization Details Recorded Time Herpes zoster 8248393 Completed 12/30/2012 Not Available [facility] 3 02:02:58 Cough 74155483 Active Catrachita Prado NP [address] [place] [address], [address] , [facility] 2 10:15:28 Gastroes ophageal reflux disease 546557058 Active 2016 Catrachita Prado NP [address] [place] [address], [address] , [facility] 2 10:15:28 Irritabl e bowel syndrome 92786202 Active 2016 Catrachita Prado NP [address] [place] [address], [address] , [facility] 2 10:15:28 Divertic ulosis of duodenum 101748963 Active [address] Kahlil Prado NP [address] [place] [address], [address] , [facility] 2 10:15:28 Bursitis of shoulder 555580693 Active 2017 R- dr gonsalez as[ 03/25/17- cortz inj. ] Catrachita Prado NP [address] [place] [address], [address] , [facility] 2 10:15:28 Colonosc opy Active 2018 2016 CSCOPE WNL, REPEAT IN 10 YRS Catrachita Prado NP [address] [place] [address], [address] , [facility] 2 10:15:28 Hemorrho ids 54603050 Active 2018 ON SCOPE 2016. Catrachita Prado NP [address] [place] [address], [address] , [facility] 2 10:15:27 Factor V deficien cy 7722125 Active [address] Jenise Harris for flights over 6 ours per. While flying, get up every 1.5 hours and walk around, increase fluids, and wear compress ion stocking s. Catrachita Prado NP [address] [place] [address], [address] , [facility] 4 20:53:58 Chest pain 04875337 Active 2018 Nuclear stress test wnl, 05/26/18 Catrachita Prado NP [address] [place] [address], [address] , [facility] 2 10:15:27 Impaired fasting glycemia 099355142 Active 2018 Catrachita Prado NP [address] [place] [address], [address] , [facility] 2 10:15:27 Depressi ve disorder 78991512 Active 2019 Catrachita Prado NP [address] [place] [address], [address] , [facility] 2 10:15:27 Osteopor osis 73358680 Active [address] Kim Prado NP [address] [place] [address], [address] , [facility] 2 10:15:27 Esophage al dysmotil ity 053571193 Active 2019 Mild on BA swallow, dr morley, 11/18/19 Catrachita Prado NP [address] [place] [address], , [facility] 2 10:15:27 Hyperten sive disorder 34493066 Active 2019 Catrachita Prado NP [address] [place] [address], , [facility] 2 10:15:27 Insomnia 523763811 Active 2020 Catrachita Prado NP [address] [place] [address], , [facility] 2 10:15:27 Ex-smoke r 2217582 Active 2020 Catrachita Prado NP [address] [place] [address], , [facility] 4 21:12:17 Sleep apnea 54268249 Active 2020 cpap Catrachita Prado NP [address] [place] [address], , [facility] 4 11:30:56 Prediabe brandie 960573090 Active 2020 Catrachita Prado NP [address] [place] [address], , [facility] 2 10:15:27 Morbid obesity 386691460 Active 2021 BMI > or = 35 with diagnosi s of hyperten tenisha Bisi Carballo, [employer] null, [facility] 2 14:21:56 Multiple nodules of lung 282316804 Active 202207/12/23 Dr Fabio olmstead; 01/25/[address] scan-no further CT recommen ded as nodules have not changed. Stopped smoking in 2009 Catrachita Prado NP [address] [place] [address], , [facility] 4 19:33:38 Gout 29204405 Active 2023 Catrachita Prado NP [address] [place], [place], , [facility] 4 11:27:39 Essentia l hyperten tenisha 15763833 Active 2023 * Catrachita Prado NP [address] [place] [address], [address] , [facility] 4 16:35:51 Obesity 923887550 Completed 200611/23/2021 Removal Reason: Morbid obesity added to the problem list Bisi Carballo LPN null, [facility] 2 14:21:18 Common cold 66245210 Completed 200612/30/2012 Not Available [facility] 3 02:00:30 Chest pain 61852573 Completed 12/30/2012 Catrachita Prado NP [address] [place] [address], [address] , [facility] 2 10:15:27 Temporom andibula r joint disorder 26313021 Active Catrachita Prado NP [address] [place] [address], [address] , [facility] 2 10:15:28 Allergic rhinitis 23487367 Active 2006 Catrachita Prado NP [address] [place] [address], [address] , [facility] 2 10:15:28 Cellulit is and abscess of upper arm 169780600 Completed 200612/30/2012 Not Available [facility] 3 02:03:57 Acute tonsilli tis 64004122 Completed 200612/30/2012 Not Available [facility] 3 02:04:15 Left upper quadrant pain 447408624 Completed 12/30/2012 Not Available [facility] 3 02:03:59 Disorder of hair AND/OR hair follicle Active 2007 Catrachita Prado NP [address] [place] [address], [address] , [facility] 2 10:15:28 Problem Notes None recorded. Procedures Surgical History Date Name Laterality Status Provider Name and Address Organization Details Recorded Time 08/25/19 24 Cardiovascular disease risk reduction counseling completed Catrachita Prado NP [address] [place], [address], [facility] 08/25/2023 12:06:40 05/12/19 24 G2211 completed Catrachita Prado NP [address] [place], [address], [facility] 05/12/2023 15:58:38 04/07/19 24 G2211 completed Catrachita Prado NP [address] [place], [address], [facility] 04/07/2023 11:44:03 06/12/19 22 prevention-cardiov ascular risk reduction counseling completed Catrachita Prado NP [address] [place] [address], [address], [facility] 06/11/2021 19:15:45 06/12/19 22 prevention-annual alcohol misuse screening completed Catrachita Prado NP [address] [place] [address], [address], [facility] 06/11/2021 19:15:40 06/09/19 21 prevention-cardiov ascular risk reduction counseling completed Gaby Solorzano [facility] 06/08/2020 12:04:02 06/09/19 21 prevention-annual alcohol misuse screening completed Gaby Solorzano [facility] 06/08/2020 12:04:02 01/30/20 16 Colonoscopy completed Catrachita Prado NP [address] [place] [address], [address], [facility] 02/01/2016 09:00:19 Imaging Results None recorded. Procedure Notes None recorded. Medical Equipment None Reported. 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 03/03 completed prn Not Available Not Available Not Available Afluria 3314-8485 (PF) 45 mcg (15 mcg x 3)/0.5 mL intramusc ular syringe inject 0.5 millilit er intramus cularly active Not Available Not Available No t Available Fluvirin 5943-0550 (PF) 45 mcg (15 mcg x 3)/0.5 mL IM syringe inject 0.5 millilit er intramus cularly 11/06 completed Not Available Not Available Not Available Afluria 2762-9355 (PF) 45 mcg(15 mcg x 3)/0.5 mL [...] taking 09/09/22 SM not taking 02-14-22 SM Not Available Not Available Not Available [...] Last Updated DateTime 02/17/2024 163.2 cm Delmis [facility] 02/17/2024 12:21:14 Date Recorded Oxygen saturation Oxygen saturation in Arterial blood by Pulse oximetry Provider Name and Address Organization Details Last Updated DateTime 02/17/2024 96 % 96 % Delmis [facility] 02/17/2024 12:23:40 Date Recorded Heart rate Provider Name an d Address Organization Details Last Updated DateTime 02/17/2024 66 /min Delmis [facility] 02/17/2024 12:23:38 Date Recorded Body temperature Provider Name a nd Address Organization Details Last Updated DateTime 02/17/2024 98.2 [degF] Delmis [facility] 02/17/2024 12:24:07 Date Recorded Systolic blood pressure Diastolic blood pressure Provider Name and Address Organization Details Last Updated DateTime 02/17/2024 128 mm[Hg] 76 mm[Hg] Delmis [facility] 02/17/2024 12:23:12 Social History Question Answer Notes LastModified by Organization Details LastModified Time Tobacco Smoking Status Former Smoker Quit 2009 wasnt daily smoker. started at 17, would have a few cigs / week. never smoked a pack a day. Catrachita Prado NP [address] [place] [address], [address], [facility] 04/07/2023 11:33:23 What Is Your Level Of [...] not available 11/11/2019 What Is Your Occupation? [employer] Information not available 12/27/2010 When Did You Quit Smoking? 11-15yearssi samina ette Quit In 2009 Information not available 12/27/2021 How Many Days In The Past Year Have You Had A Heavy Drinking Consumption (4+ Female, 5+ Male)? 12 Information not available 07/22/2014 Are There Any Guns Present In Your Home? No Information not available 12/27/2010 Live Alone Or With Others? With Others Information not available 07/22/2014 CSRP - Narcotics No [email or web address] Information not available 08/23/2016 CSRP Contract Signed And Discussed Yes Dc Per EC 08/23/16 Information not available 07/31/2011 Does The Patient Have Difficulty Speaking Canadian? No Information not available 07/22/2014 Does The Patient Have Difficulty Reading Canadian? No Information not available 07/22/2014 Patient Has Health Care Proxy Signed And In Chart Yes [email or web address] Information not available 04/30/2018 Marital Status Information not available 12/27/2010 Mosquito Repellent Used Routinely Yes Information not available 12/27/2010 What Was The Date Of Your Most Recent Tobacco Screening? 03/08/2024 [email or web address] Information not available 03/08/2024 How Many Children Do You Have? 3 Randi [eye Issue][place]- [employer] In [facility]; Jesse Harden [facility]- [employer], Kortney[employer]EL[employer]; [employer]. Information not available 11/28/2010 Seat Belts Used Routinely Yes Information not available 12/27/2010 Smoke Alarm In Home Yes Information not available 12/27/2010 Do You Or Have You Ever Used Smokeless Tobacco? Never Used Smokeless Tobacco Information not available 11/11/2019 General Stress Level Medium Information not available 12/13/2014 Do You Use Sunscreen Routinely? 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 Not available 05/27/2018 11:45:46 Mother Malignant tumor [...] bro 1 sis Medical History Condition Response HEMATOLOGIC Y METABOLIC Y Diverticulosis Y Gynecological HistoryNo gynecological history recorded. Obstetrics History GPAL:G 0 P 0 0 0 0 Immunizations Vaccine Type Date Status Note Provider Nam e and Address Organization Details Recorded Time Influenza, split virus, trivalent, preservative 1 completed Not Available [facility] 02/27/2019 02:33:04 influenza, unspecified formulation 7 completed Not Available [facility] 10/11/2022 10:57:57 influenza, unspecified formulation 7 completed Not Available [facility] 10/11/2022 10:57:57 Influenza, split virus, trivalent, PF 3 completed Not Available [facility] 02/27/2019 02:34:58 Influenza, split virus, trivalent, preservative 2 completed Not Available [facility] 10/11/2022 10:57:57 Influenza, split virus, quadrivalent, PF 6 completed Not Available [facility] 02/27/2019 02:27:06 influenza, unspecified formulation 4 completed Not Available [facility] 10/11/2022 10:57:57 influenza, unspecified formulation 5 completed Not Available [facility] 10/11/2022 10:57:57 Influenza, split virus, quadrivalent, PF 8 completed Not Available [facility] 02/27/2019 02:35:35 Tdap 0 completed Not Available [facility] 02/27/2019 02:15:21 influenza, unspecified formulation 7 completed Not Available [facility] 10/11/2022 10:57:57 Influenza, split virus, quadrivalent, preservative 9 completed Not Available [facility] 10/11/2022 10:57:57 Td (adult), 2 Lf tetanus toxoid, preservative free, adsorbed 1 completed Catrachita Prado NP [address] [place], [address], [facility] 06/08/2020 13:00:53 Influenza, split virus, quadrivalent, PF 1 completed ARGENTINA SwainSusanna collin, [facility] 11/06/2020 09:14:54 Influenza, split virus, quadrivalent, preservative 0 completed Not Available [facility] 10/11/2022 10:57:57 COVID-19, mRNA, LNP-S, PF, 30 mcg/0.3 mL dose 1 completed Not Available [facility] 10/11/2022 10:57:57 COVID-19, mRNA, LNP-S, PF, 30 mcg/0.3 mL dose 1 completed Not Available [facility] 10/11/2022 10:57:57 Influenza, split virus, quadrivalent, PF 3 completed Catrachita Prado NP [address] [place] [address], [address], [facility] 02/19/2022 10:49:43 Influenza, split virus, trivalent, PF 4 completed Catrachita Prado NP [address] [place] [address], [address], [facility] 10/30/2023 14:51:57 COVID-19, mRNA, LNP-S, PF, 30 mcg/0.3 mL dose 1 completed Not Available [facility] 10/11/2022 10:57:57 Past Encounters Encounter ID Performer Location Encounter Start Date Encounter Closed Date Diagnosis/Indication Diagnosis SNOMED-CT Code Diagnosis ICD10 Code Diagnosis Note [id number] Catrachita Prado NP , [facility], OFFICE [address] [place] [address] 01/22/2024 09:47:50 01/22/2024 13:21:53 Active or passive immunization 357065465 Z23 Pneumo: Reminded at pharmacy 01/22/24 MWShingles : Reminded at pharmacy Anxiety 86489363 F41.9 Improved on medication Using medication infrequent ly Nausea 244891054 R11.0 Improved on medication Night sweats 80822747 R6 1 -Check labs Dyspnea on exertion 6084 5006 R06.09 EKG today reassuring Most likely related to johanna Varghese labs todayEchoc ardiogram ordered, patient will call the hospital if they do not contact Myron garcia referral, patient will schedule the appointmen tReviewed Red Flags & when to seek Urgent Care/Emerg ency Department care. And when to Return To Office. Patient states understand ing & is in agreement with the plan. [id number] John Mcgraw MD , [facility], OFFICE [address] [place] [address] 02/17/2024 11:56:27 02/19/2024 17:56:12 Upper respiratory infection 54961175 J06.9 Patient presents with symptoms consistent with viral infection. No evidence of pneumonia on exam. Discussed supportive care: pushing fluids, rest, nasal saline and Mucinex as needed. Encouraged to follow up if symptoms persist for more then 10 days or if they are worsening. Discussed natural course of viral illnesses and lack of evidence for treating with antibiotic s. Cough 51426452 R05.9 trial of benzonatat e during the dayrobitus sin with codeine at night/bedt saran - aware of possible sedationCX R today to r/o pneumonia Posterior rhinorrhea 758 61977 R09.82 trial of fluticason e nasal spray to decrease post nasal dripreview ed interactio n list and no interactio n with Tyrvaya nasal spray Health Concerns Section Related Observation LastModified by Organization Detai ls LastModified Time None Recorded Concern Status LastModified by Organization Details LastModified Time None Recorded Payers Encounter Date Sequence Insurance Name Policy Number Policy Gregorio Covered Member ID Gregorio Member ID Guarantor Name 02/17/2024 1 [facility] (MEDICARE REPLACEMENT/ ADVANTAGE - PPO) [id number] Catrachita Chapman [id number] Catrachita Chapman Notes Date Note Type Note Provider Name and Address Organization Details Recorded Time 02/17/2024 text/html Cough sxs on going since [place] approx x 3 weeks nowPt c/o cough productive w/ SOB and wheezing, diff sleeping, crusty eye, rash face resolved, diarrhea no feverDenies: sore throat, sinus pressure, ear/face pain, vomitingNo recent testing -hot tea and delsym at night not helpfulhas post nasal dripusing albuterol - did not helpnon smoker no vaping John Mcgraw MD [address] [place] [address], [address], [facility] 02/17/2024 14:38:48 OBGyn Episode No OBEpisode recorded.
--- OUTSIDE RECORDS SUMMARY | 2024-03-11 12:05 | XMS_ITS | Continuity of Care Document ---
Author Organization [facility], FP, EHC, OFFICE Address [address] [place] [address] Care Team Providers Care Thermodynamic Physicist Name Role Phone CATRACHITA GUZMAN Primary Care Provider MARTIN COVARRUBIAS Medical Oncologist [facility] Sleep Me dicine [facility] Urologist Assessment No assessment recorded. Plan of Treatment Reminders Order Date Submit Date Provider Last Modified By Organization Details Last Modified Time Details Appointments Wellness Visit 30 2024 10:30A M KEVON TAYLOR Not available Not available Not available Lab None recorded . Referral sleep medicine referral - scott, needs repeat [facility] study [facility]24 [email or web address], [address], [address], [place], [address], 03/10/2024 09:41:58 Procedures None recorded . Surgeries None recorded . Imaging home sleep study - SCOTT and has not had repeat sleep study in several years and has lost weight 2024 025 [email or web address] [facility], [address] [facility], [address], [place], [address], 03/08/2024 12:19:55 Medication Orders Wegovy 0.25 mg/0.5 mL subcutan eous pen injector 2024 025 [id number], [address] [place] [address], [id number], 03/08/2024 08:59:26 buspiron e 10 mg tablet 2024 025 [id number], [address] [place], [place], [phone], 03/08/2024 08:59:32 Patient TargetsNo targets recorded. Patient Instructions Encounter Date Encounter Id Patient Instructions Last Modified By Organization Details Last Modified Time 03/08/2024 [id number] Information on HEART HEALTH discussed today: Heart disease is the leading cause of in [place]. The [place] [employer] (AHA) recommends at least 150 minutes (2.5 hours) of heart-pumping physical activity per week. Only about one in five adults and teens get enough exercise to maintain good health. Being more active can help all people think, feel and sleep better and perform daily tasks more easily. Visit the [place] [employer] website for more information below: Copy and paste this website address into your browser for more information. https://www.heart .org/en/healthy-l iving/fitness/fit ness-basics/aha-r fmx-gte-zgsvlqfa- tvzncduu-dz-orxqg s A great TueboraTUBE website for exercise at home discussed today is: Senior Shape by Agnieszka on BoldIQUBE This link below is a 1 mile walk. She has many different exercise routines. Copy and paste this website address below into your browser for the 1 Mile Walk. https://www.Digital Orchid.com/watch?v=Wy zBeYc0KBW MOVEME NT IS MEDICINE--------- -- Not available 03/08/2024 08:54:30 Reason for Referral Sleep Medicine Referral for Sleep apnea scott, needs repeat sleep study Referring Physician: Catrachita Guzman, Family Medicine, Encounter Date: 03/08/2024 Results Created Date Observation Date Name Description Value Unit Range Abnormal Flag Note LastModifiedBy Organization Detail LastModifiedTime 02/16/1902/17/2024 XR, chest CLINIC AL HISTOR Y: Persis [...] . IMPRES TENISHA: No acute diseas e. Readin g Physic leo: Mohamud ia Cross [facility] (Imaging) [address] , [place], [address], 02/24/2024 14:07:58 03/05/1903/04/2024 trans -thor acic echoc ardio gram (TTE) (PROC ) No observ ation record ed. [address], [address], 03/07/2024 20:03:10 Result Notes None recorded. Problems Name Problem SNOMED Code Status Onset Date Resolution Date Notes Provider Name and Address Organization Details Recorded Time Herpes zoster 3125225 Completed 12/30/2012 Not Available [facility] 3 02:02:58 Cough 39116508 Active Catrachita Guzman NP [address] [place] [address], [address] , [facility] 2 10:15:28 Gastroes ophageal reflux disease 833907603 Active 2016 Catrachita Guzman NP [address] [place] [address], [address] , [facility] 2 10:15:28 Irritabl e bowel syndrome 86057580 Active 2016 Catrachita Guzman NP [address] [place] [address], [address] , [facility] 2 10:15:28 Divertic ulosis of duodenum 295635772 Active [address] Kahlil Guzman NP [address] [place] [address], [address] , [facility] 2 10:15:28 Bursitis of shoulder 389098474 Active 2017 R- dr gonsalez as[ 03/25/17- cortz inj. ] Catrachita Guzman NP [address] [place], [address] , [facility] 2 10:15:28 Colonosc opy Active 2018 2016 CSCOPE WNL, REPEAT IN 10 YRS Catrachita Guzman NP [address] [place] [address], [address] , [facility] 2 10:15:28 Hemorrho ids 98801668 Active 2018 ON SCOPE 2016. Catrachita Guzman NP [address] [place], [address] , [facility] 2 10:15:27 Factor V deficien cy 9786443 Active [address] Jenise Harris for flights over 6 ours per. While flying, get up every 1.5 hours and walk around, increase fluids, and wear compress ion stocking s. Catrachita Guzman NP [address] [place] [address], [address] , [facility] 4 20:53:58 Chest pain 78139127 Active 2018 Nuclear stress test wnl, 05/26/18 Catrachita Guzman NP [address] [place], [address] , [facility] 2 10:15:27 Impaired fasting glycemia 352342039 Active 2018 Catrachita Guzman NP [address] [place], [address] , [facility] 2 10:15:27 Depressi ve disorder 47908748 Active 2019 Catrachita Guzman NP [address] [place], [address] , [facility] 2 10:15:27 Osteopor osis 87985297 Active [address] Kim Guzman NP [address] [place], [address] , [facility] 2 10:15:27 Esophage al dysmotil ity 767470114 Active 2019 Mild on BA swallow, dr morley, 11/18/19 Catrachita Guzman NP [address] [place] [address], [address] , [facility] 2 10:15:27 Hyperten sive disorder 82315960 Active 2019 Catrachita Guzman NP [address] [place] [address], [address] , [facility] 2 10:15:27 Insomnia 240978667 Active 2020 Catrachita Guzman NP [address] [place] [address], [address] , [facility] 2 10:15:27 Ex-smoke r 6553925 Active 2020 Catrachita Guzman NP [address] [place] [address], [address] , [facility] 4 21:12:17 Sleep apnea 37212495 Active 2020 cpap Catrachita Guzman NP [address] [place] [address], [address] , [facility] 4 11:30:56 Prediabe brandie 742804648 Active 2020 Catrachita Guzman NP [address] [place] [address], [address] , [facility] 2 10:15:27 Morbid obesity 479573297 Active 2021 BMI > or = 35 with diagnosi s of hyperten tenisha Bisi Carballo, FINE HAIRER null, [facility] 2 14:21:56 Multiple nodules of lung 643776427 Active 202207/12/23 Dr Fabio olmstead; 01/25/20 CT scan-no further CT recommen ded as nodules have not changed. Stopped smoking in 2009 Catrachita Guzman NP [address] [place] [address], [address] , [facility] 4 19:33:38 Gout 74598669 Active 2023 Catrachita Guzman NP [address] [place] [address], [address] , [facility] 4 11:27:39 Malaika l hyperten tenisha 58950799 Active 2023 * Catrachita Guzman NP [address] [place], [address] , [facility] 4 16:35:51 Obesity 002536290 Completed 200611/23/2021 Removal Reason: Morbid obesity added to the problem list Bisi Carballo LPN null, [facility] 2 14:21:18 Common cold 95707152 Completed 200612/30/2012 Not Available [facility] 3 02:00:30 Chest pain 58304461 Completed 12/30/2012 Catrachita Guzman NP [address] [place] [address], [address] , [facility] 2 10:15:27 Temporom andibula r joint disorder 10839795 Active Catrachita Guzman NP [address] [place] [address], [address] , [facility] 2 10:15:28 Allergic rhinitis 29243235 Active 2006 Catrachita Guzman NP [address] [place] [address], [address] , [facility] 2 10:15:28 Cellulit is and abscess of upper arm 743139591 Completed 200612/30/2012 Not Available [facility] 3 02:03:57 Acute tonsilli tis 71954186 Completed 200612/30/2012 Not Available [facility] 3 02:04:15 Left upper quadrant pain 462352394 Completed 12/30/2012 Not Available [facility] 3 02:03:59 Disorder of hair AND/OR hair follicle Active 2007 Catrachita Guzman NP [address] [place], [address] , [facility] 2 10:15:28 Problem Notes None recorded. Procedures Surgical History Date Name Laterality Status Provider Name and Address Organization Details Recorded Time 08/25/19 24 Cardiovascular disease risk reduction counseling completed Catrachita Guzman NP [address] [place] [address], [address], [facility] 08/25/2023 12:06:40 05/12/19 24 G2211 completed Catrachita Guzman NP [address] [place] [address], [address], [facility] 05/12/2023 15:58:38 04/07/19 24 G2211 completed Catrachita Guzman NP [address] [place] [address], [address], [facility] 04/07/2023 11:44:03 06/12/19 22 prevention-cardiov ascular risk reduction counseling completed Catrachita Guzman NP [address] [place] [address], [address], [facility] 06/11/2021 19:15:45 06/12/19 22 prevention-annual alcohol misuse screening completed Catrachita Guzman NP [address] [place] [address], [address], [facility] 06/11/2021 19:15:40 06/09/19 21 prevention-cardiov ascular risk reduction counseling completed Gaby Solorzano [facility] 06/08/2020 12:04:02 06/09/19 21 prevention-annual alcohol misuse screening completed Gaby Solorzano [facility] 06/08/2020 12:04:02 01/30/20 16 Colonoscopy completed Catrachita Guzman NP [address] [place] [address], [address], [facility] 02/01/2016 09:00:19 Imaging Results None recorded. Procedure Notes None recorded. Medical Equipment None Reported. 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 NEED TO HAVE PUBLIC HEALTH PHYSICIAN ON DAY OF PROCEDUR E active Not [...] Not Available Not Available Not Available Afluria 0376-4563 (PF) 45 mcg (15 mcg x 3)/0.5 mL intramusc ular syringe inject 0.5 millilit er intramus cularly active Not Available Not Available No t Available Fluvirin 2659-4635 (PF) 45 mcg (15 mcg x 3)/0.5 mL IM syringe inject 0.5 millilit er intramus cularly 11/06 completed Not Available Not Available Not Available Afluria 2984-9627 (PF) 45 mcg(15 mcg x 3)/0.5 mL [...] Last Updated DateTime 03/08/2024 163.2 cm Jeanna Hook, [facility] 03/08/2024 08:04:03 Date Recorded Heart rate Provider Name an d Address Organization Details Last Updated DateTime 03/08/2024 65 /min [facility] 03/08/2024 08:06:39 Date Recorded Body mass index (BMI) Body weight Provider Name and Address Organization Details Last Updated DateTime 03/08/2024 37.7 kg/m2 569151.01 g Catrachita Guzman NP [address] [place] [address], [address], [facility] 03/08/2024 08:25:38 Date Recorded Systolic blood pressure Diastolic blood pressure Provider Name and Address Organization Details Last Updated DateTime 03/08/2024 122 mm[Hg] 68 mm[Hg] [facility] 03/08/2024 08:07:42 Social History Question Answer Notes LastModified by Organization Details LastModified Time Tobacco Smoking Status Former Smoker Quit 2009 wasnt daily smoker. started at 17, would have a few cigs / week. never smoked a pack a day. Catrachita Guzman NP [address] [place] [address], [address], [facility] 04/07/2023 11:33:23 What Is Your Level Of [...] not available 11/11/2019 What Is Your Occupation? [employer] Information not available 12/27/2010 When Did You [...] 07/31/2011 Does The Patient Have Difficulty Speaking Montenegrin? No Information not available 07/22/2014 Does The Patient Have Difficulty Reading Montenegrin? No Information not available 07/22/2014 Patient Has Health Care Proxy Signed And In Chart Yes [email or web address] Information not available 04/30/2018 Marital Status DBA_[id number] 1 [id number] Information not available 12/27/2010 Mosquito Repellent Used Routinely Yes [id number] Information not available 12/27/2010 What Was The Date Of Your Most Recent Tobacco Screening? 03/08/2024 [email or web address] Information not available 03/08/2024 How Many Children Do You Have? 3 Randi [eye Issue][place]- [employer] 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 Not available 05/27/2018 11:45:46 Mother Malignant tumor [...] virus, trivalent, preservative 1 completed Not Available [facility] 02/27/2019 02:33:04 influenza, unspecified formulation 7 completed Not Available [facility] 10/11/2022 10:57:57 influenza, unspecified formulation 7 completed Not Available [facility] 10/11/2022 10:57:57 Influenza, split virus, trivalent, PF 3 completed Not Available [facility] 02/27/2019 02:34:58 Influenza, split virus, trivalent, preservative 2 completed Not Available [facility] 10/11/2022 10:57:57 Influenza, split virus, quadrivalent, PF 6 completed Not Available [facility] 02/27/2019 02:27:06 influenza, unspecified formulation 4 completed Not Available [facility] 10/11/2022 10:57:57 influenza, unspecified formulation 5 completed Not Available [facility] 10/11/2022 10:57:57 Influenza, split virus, quadrivalent, PF 8 completed Not Available [facility] 02/27/2019 02:35:35 Tdap 0 completed Not Available [facility] 02/27/2019 02:15:21 influenza, unspecified formulation 7 completed Not Available [facility] 10/11/2022 10:57:57 Influenza, split virus, quadrivalent, preservative 9 completed Not Available [facility] 10/11/2022 10:57:57 Td (adult), 2 Lf tetanus toxoid, preservative free, adsorbed 1 completed Catrachita Guzman NP [address] [place] [address], [address], [facility] 06/08/2020 13:00:53 Influenza, split virus, quadrivalent, PF 1 completed Gaby Solorzano CHARI collin, [facility] 11/06/2020 09:14:54 Influenza, split virus, quadrivalent, preservative 0 completed Not Available [facility] 10/11/2022 10:57:57 COVID-19, mRNA, LNP-S, PF, 30 mcg/0.3 mL dose 1 completed Not Available [facility] 10/11/2022 10:57:57 COVID-19, mRNA, LNP-S, PF, 30 mcg/0.3 mL dose 1 completed Not Available [facility] 10/11/2022 10:57:57 Influenza, split virus, quadrivalent, PF 3 completed Catrachita Guzman NP [address] [place], [address], [facility] 02/19/2022 10:49:43 Influenza, split virus, trivalent, PF 4 completed Catrachita Guzman NP [address] [place], [address], [facility] 10/30/2023 14:51:57 COVID-19, mRNA, LNP-S, PF, 30 mcg/0.3 mL dose 1 completed Not Available [facility] 10/11/2022 10:57:57 Past Encounters Encounter ID Performer Location Encounter Start Date Encounter Closed Date Diagnosis/Indication Diagnosis SNOMED-CT Code Diagnosis ICD10 Code Diagnosis Note [id number] John Mcgraw MD , [facility], OFFICE [address] [place] [address] 02/17/2024 11:56:27 02/19/2024 17:56:12 Upper respiratory infection 12380502 J06.9 Patient presents with symptoms consistent with viral infection. No evidence of pneumonia on exam. Discussed supportive care: pushing fluids, rest, nasal saline and Mucinex as needed. Encouraged to follow up if symptoms persist for more then 10 days or if they are worsening. Discussed natural course of viral illnesses and lack of evidence for treating with antibiotic s. Cough 65471516 R05.9 trial of benzonatat e during the dayrobitus sin with codeine at night/bedt saran - aware of possible sedationCX R today to r/o pneumonia Posterior rhinorrhea 758 55743 R09.82 trial of fluticason e nasal spray to decrease post nasal dripreview ed interactio n list and no interactio n with Tyrvaya nasal spray [id number] John Mcgraw MD , [facility], OFFICE [address] [place] [address] 03/08/2024 08:01:27 03/08/2024 12:19:55 Sleep apnea 95478630 G47.30 -call sleep apnea company and get new part-discu ssed medical concern for not wearing CPAP and increase risk in heart attacks and stroke Anxiety 31916789 F41.9 Nice to see you, & continue [...] concerns. 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 The patient's opinions and concerns were included in this treatment plan and goal. 1. Discussed Blood Pressure goals. 2. BP GOAL is under 130/80. Pt is at goal. 3. Follow up in 3 mos Prediabetes 978112080 R7 3.03 a1c is 5.2 improved Sugars [...] see our nutritioni st. Obese class III 56651563 5 E66.813 -continue to work on weight [...] Member ID Gregorio Member ID Guarantor Name 03/08/2024 1 [place] (MEDICARE REPLACEMENT PPO) [id number] Catrachita Chapman [id number] Catrachita Chapman Notes Date Note Type Note Provider Name and Address Organization Details Recorded Time 03/08/2024 text/html ShoulderReported bypatient.Initial Location:anterior Current location:top [...] of wegovyhas gone to see hypnotist and bat boy/girl, has done WT watchers, and gains wt [...] blue thinks dt the cold weatherstress w rafaela- feels wants increase in buspironeexerc- nonehas tenant [...] happening during day.dad d at 51 dt NC/congenital issue Obesity -started Wegovy in 2022 at [employer] in [facility] wegovy lost 20 lbs in last year.nausea comes and goes, But is manageable OSAnot wearing - discussed importance, She will start Anxiety and depressionwell controlled Shoulder surgery- at [facility] Jesse getting 11/04Trade school 10/30/23 b/l shoulder [...] - engaged, alanna- 30 oldestjohn- son engaged, scarblue John Mcgraw MD [address] [place] [address], [address], [facility] 03/08/2024 09:38:25 OBGyn Episode No OBEpisode recorded.
== END 2024-03-11 12:55 | disposition home or self-care (01) ==
PROVIDERS: PCP Nurse Practitioner; Visit Provider Hospitalist
DX: R91.8 Other nonspecific abnormal finding of lung field (principal); R06.2 Wheezing; G47.33 Obstructive sleep apnea (adult) (pediatric); J98.4 Other disorders of lung; T78.40XA Allergy, unspecified, initial encounter
CPT/HCPCS: 99214; G2211

== ENCOUNTER 2024-03-11 09:03 | Outpatient (REF) | payer MEDICARE, SELFPAY ==
[2024-03-11 11:21] LABS: Erythrocyte Sedimentation Rate 8 MM/HR (0-20)
--- OUTSIDE RECORDS SUMMARY | 2024-03-11 12:51 | XMS_ITS | Clinical Summary ---
Author Organization [address] Address [address] [place] [address] Phone Care Team Providers Care Admission Nurse Name Role Phone Unavailable Primary Care Provider Unavailabl e Encounters Date Type Department Care Team Description 02/20/2024 Lab Requisition [facility] Lab [address] [place] [address] Berto Andrew PA Dysuria 12/25/2023 Lab Requisition [facility] Lab [address] [place] [address] Dilma Hart NP Urinary tract [...] Escherichia coli(A) [place] 02/21/2024 10:55 AM EST [facility] Other Urine specimen [...] LUND LAB MICROBIOLOGY - G ENERAL ORDERABLES [facility] LAB [address] [place] [address], from Last 3 Months
--- OUTSIDE RECORDS SUMMARY | 2024-03-11 12:51 | XMS_ITS | Encounter Summary ---
Author Organization [facility] Address [address] [place] [address] Care Team Providers Care Lining Baster Name Role Phone Unavailable Primary Care Provider Unavailabl e Encounter Details Date Type Department Care Team (Late st Contact Info) Description 02/20/2024 Lab Requisition [facility] Lab [address] [facility] [place] [phone] Berto Andrew PA [address] [facility] [address] [place] [address] Dysuria Social History Tobacco Use Types Packs/Day [...] Escherichia coli(A) [place] 02/21/2024 10:55 AM EST [facility] Other Urine specimen from urethra [...] Escherichia coli Trimethoprim/Sulfamethoxazole [place] >=320 ug/ml: Resistant Berot LUND LAB MICROBIOLOGY - G ENERAL ORDERABLES [facility] [address] [place] [address], documented in this encounter Visit Diagnoses Diagnosis Dysuria documented in this encounter
--- OUTSIDE RECORDS SUMMARY | 2024-03-11 12:51 | XMS_ITS | Encounter Summary ---
Author Organization [facility] Address [address] [place] [address] Care Team Providers Care Him Coder Name Role Phone Unavailable Primary Care Provider Unavailabl e Encounter Details Date Type Department Care Team (Late st Contact Info) Description 12/25/2023 Lab Requisition [facility] - Main Lab [address] [place] [phone] Dilma Hart NP [address] [facility] [address] [place] [address] Urinary tract infection, site not specified Social [...] Normal Urogenital mireya. 12/25/2023 12:48 PM EST [facility] Other Urine specimen from urinary conduit / Unknown 12/24/2023 12/25/2023 11:54 AM EST Dilma Hart NP LAB MICROBIOLOGY - GENERAL ORDERABLES [facility] LAB [address] [place] [address], documented in this encounter Visit Diagnoses Diagnosis Urinary tract infection, site not specified documented in this encounter
[2024-03-12 16:33] LABS: Antibody to SS-A Antigen <1.0 NEG AI (<1.0 NEG); Antibody to SS-B Antigen <1.0 NEG AI (<1.0 NEG)
[2024-03-12 22:23] LABS: Class Alternaria alternata 0; Class Aspergillus fumigatus 0; Class Bermuda Grass 0; Class Birch 0; Class Cat Dander 0; Class Cladosporium herbarum 0; Class Cockroach 0; Class Common Ragweed 0; Class Cottonwood 0; Class Derm. pterony 0; Class Dermatophagoides farinae 0; Class Dog Dander 0; Class Elm 0; Class Maple Box Elder 0; Class Mountain Cedar 0; Class Mouse Urine Protein 0; Class Mugwort 0; Class Oak 0; Class Penicillium crysogenum 0; Class Rough Pigweed 0; Class Sheep Sorrel 0; Class Sycamore 0; Class Timothy Grass 0; Class Walnut Tree 0; Class White Ash 0; Class White Mulberry 0; D001 IgE D pteronyssinus <0.10 kU/L; D002 - IgE D farinae <0.10 kU/L; E001 - IgE Cat Dander <0.10 kU/L; E005 - IgE Dog Dander <0.10 kU/L; E072-IgE Mouse Urine <0.10 kU/L; G002 IgE Bermuda Grass <0.10 kU/L; G006 - IgE Timothy Grass <0.10 kU/L; I006-IgE Cockroach, German <0.10 kU/L; Immunoglobulin E 8 kU/L (<OR=114); M001 IgE Penicillium chrysogen <0.10 kU/L; M002 - IgE Cladosporium herbar <0.10 kU/L; M003 - IgE Aspergillus fumigat <0.10 kU/L; M006 - IgE Alternaria alternat <0.10 kU/L; T001 IgE Maple/Box Elder <0.10 kU/L; T003 IgE Common Silver Birch <0.10 kU/L; T006 - IgE Cedar, Mountain <0.10 kU/L; T007 - IgE Oak, White <0.10 kU/L; T008 IgE Elm, American <0.10 kU/L; T010 - IgE Walnut <0.10 kU/L; T011 - IgE Maple Leaf Sycamore <0.10 kU/L; T014 - IgE Cottonwood <0.10 kU/L; T015 - IgE Ash, White <0.10 kU/L; T070 - IgE White Mulberry <0.10 kU/L; W001 - IgE Ragweed, Short <0.10 kU/L; W006 - IgE Mugwort <0.10 kU/L; W014 IgE Pigweed, Common <0.10 kU/L; W018 IgE Sheep Sorrel <0.10 kU/L
[2024-03-15 22:08] LABS: Cyclic Citrullinated Peptide <16 UNITS
[2024-03-17 16:18] LABS: Anti Nuclear Antibody Screen POSITIVE (NEGATIVE)
[2024-03-19 13:53] LABS: Asperg fumigatus Precip Abs NEGATIVE (NEGATIVE); Micropoly faeni Abs NEGATIVE (NEGATIVE); Pigeon serum Abs NEGATIVE (NEGATIVE); Saccharo pora viridis Abs NEGATIVE (NEGATIVE); Thermo candidus Abs NEGATIVE (NEGATIVE); Thermoa vulgaris #1 NEGATIVE (NEGATIVE)
== END 2024-03-11 09:04 | disposition home or self-care (01) ==
LOC: HO.LAB 09:03
PROVIDERS: PCP Nurse Practitioner; Visit Provider Hospitalist
DX: J98.4 Other disorders of lung (principal); R91.1 Solitary pulmonary nodule; R91.8 Other nonspecific abnormal finding of lung field; T78.40XA Allergy, unspecified, initial encounter; R06.2 Wheezing; G47.33 Obstructive sleep apnea (adult) (pediatric)
CPT/HCPCS: 36415; 82785; 85652; 86003; 86038; 86039; 86200; 86235; 86331; 86606; 86609; 99212

== ENCOUNTER 2024-04-21 13:04 | Outpatient (REF) | payer MEDICARE, SELFPAY ==
--- NOTE | 2024-04-21 13:13 | PFT_ITS ---
Flows: FEV1: 86 % of predicted at 2.04 L FVC: 92 % of predicted at 2.78 L FEV1/FVC: 73 % Bronchodilator response: Absent Volumes: Total lung capacity: 84 % of predicted at 4.28 L Residual volume: 82 % of predicted at 1.53 L Slow vital capacity: 85 % of predicted at 2.75 L Expiratory reserve volume: 52 % of predicted at 0.40 L Diffusion capacity: Normal Impression: No obstructive or restrictive ventilatory defect. No bronchodilator response. Decreased expiratory reserve volume suggests extrathoracic restriction likely secondary to abdominal obesity. MTDD
[2024-04-21 13:47] VITALS: PULSE 73
--- OUTSIDE RECORDS SUMMARY | 2024-04-21 15:17 | XMS_ITS | Continuity of Care Document ---
Author Organization [facility] Address [address] [facility] [place] [address]- Care Team Providers Care Rivet Hammer Machine Operator Name Role Phone Catrachita Prado NP Primary Care Physician [phone] Encounter 02/13/24 - 03/25/24 [facility] [address], [facility] [address] [place] [address]- Attending Physician: Christian Solo MD Admitting Physician: Christian Solo MD Referring Physician: Christian Solo MD Encounter Type: Pre-Outpt Allergies, Adverse Reactions, Alerts No Known Allergies Medications Citracal + D 315 mg-250 intl units oral tablet 1 tablet, By Mouth, 2 times a day, # 180 tablet, 2 Refills, Maintenance, 09/25/17 8:30:23 AM EDT, Tablet, [facility] [address] [facility], 1 tablet By Mouth 2 times a day,x90 days Start Date: 09/25/17 Stop Date: 06/22/18 Status: Ordered Quantity: 180.0 Unit: tablet Repeat number: 3 enoxaparin 40 mg/0.4 mL injectable solution See Instructions, INJECT 40 MG UNDER THE SKIN DAILY PRIOR TO FLIGHT AND PRIOR TO RETURN FLIGHT, # 2mL, 0 Refills, Maintenance, 11/19/23 9:58:00 AM EDT, Schedule [id number], 163, cm, 03/06/23 14:25:00 EST, Height, 105, [...] 0 Refills, Maintenance, 11/12/23 4:25:00 PM EDT, Schedule [facility] #[id number], 163, cm, 03/06/23 14:25:00 EST, Height, 105, kg, 03/06/23 14:25:00 EST, Dry Weight Start Date: 11/12/23 Status: Ordered Quantity: 2.0 Unit: each Repeat number: 1 Lovenox 40 mg/0.4 mL subcutaneous solution 0.4 mL = 40 mg, Subcutaneous Injection, Daily, # 0.8 mL, 0 Refills, Maintenance, 12/02/11 4:01:04 PM EDT, Solution, [facility] [address] [facility] Start Date: 12/02/11 Stop Date: 12/04/11 Status: Ordered Quantity: 0.8 Unit: mL Repeat number: 1 Prevacid By Mouth, Daily, 0 Refills, Maintenance, 09/29/15 11:45:13 AM EDT Start Date: 09/29/15 Status: Ordered Repeat number: 1 Problem List Condition Confirmation Course Effective Dates Status Health [facility] Informant Obese class II Confirmed Active Social History Social History Type Response Smoking Status Never smoker entered on: 09/28/15 Sex Sex Representation Female (finding) Patient Care team information Care Team Personnel Name: Catrachita Prado NP Position: [facility] Outreach Member Role: PCP Address: [address] [place] [id number] [employer] Tele[employer]: Name: Christian Solo MD Position: [facility] Physician - Pulm/Critical Care Med Service: Pulmonology Member Role: Referring Physician Address: [address] [place] [id number] [employer]: Care Team Related Persons Name: ELIZABETH CASTILLO Insurance Providers Guarantor name: CATRACHITA CASTILLO Health Plan Information #: 2 Payer: [employer] Member Number: [id number] Policy Number: NA Group Number: NA Health Plan Information #: 1 Payer: MEDICARE PART B OUTPT Member Number: [id number] Policy Number: NA Group Number: NA Health Plan Information #: 3 Payer: NA Member Number: NA Policy Number: NA Group Number: NA
--- OUTSIDE RECORDS SUMMARY | 2024-04-21 15:17 | XMS_ITS | Data Portability ---
Author Organization [facility], [facility] Address [address] [place] [address] Care Team Providers Care Signals Analyst Name Role Phone CATRACHITA PRADO Primary Care Provider MARTIN COVARRUBIAS Medical Oncologist [facility] dicine [facility] Urologist Assessment Encounter Date Assessment Date Assessment LastModified by Organization Details LastModified Time 04/06/2024 04/06/2024 We completed your Medicare Wellness exam today. This was an opportunity to assess your overall well being including your ability to care for yourself, your mobility, memory, mental health, as well as your safety. With advancing age, it is important to assign someone in your life as your Health Care Proxy (HCP). This person should know what is important to you and what your wishes are for medical procedures if you cannot communicate your wishes yourself (severe illness, unconsciousness) . We discussed having a completed Health Care Proxy form today. If appropriate, today we started a conversation about your End of Life wishes. These conversations will continue over the years. We discussed the purpose of a MOLST form (Medical Orders for Life Sustaining Treatment) and completed this form if appropriate per your wishes. Vision and Hearing are senses that are critically important as we age. When impaired, they can contribute to memory loss, falls, and make it harder to drive, talk to family and friends, and engage in the world. Please get your vision checked yearly and your hearing checked when you start to notice hearing loss. We discussed approaches to lowering your risk of heart disease and stroke . Your blood pressure is at goal. Your cholesterol is higher than goal, please see plan below. We discussed cancer screening you may need as well as vaccines to prevent infections. Colon Cancer : Your risk of colon cancer is average. Due for colorectal screenin. If you are not planning to have a colonoscopy please screen with stool cards yearly. Breast Cancer : Breast Cancer Screening (mammography). Next mammogram due: 2024. Cervical Cancer Screening (pap test). Next pap due: 2024. Influenza Vaccine : Flu shot yearly. Tetanus Vaccine : Every 10 years. Due: 2030. The following vaccines are available from your pharmacy: Pneumonia Vaccine : PCV20: once after age 65. Shingles Vaccine : 2 shots after age 50. Covid Vaccine : Make sure you have received the most up to date covid vaccine. Your personal health goal for the year is: We reviewed your chronic medical conditions and updated your plan for management. Please review instructions below. We have discussed your personal goals and discussed how to reach your goals. Please reach out to us via the Portal or phone if you have questions about your chronic conditions or if you or your caregivers require assistance in meeting your goals. Please visit our website [employer] for more patient resources. As part of your care plan, we will help coordinate your ongoing medical needs, arrange for durable medical equipment, renew prescriptions and necessary prior authorizations, facilitate getting referrals and collaborating with specialist, referrals for VNA services. kaleb Not available 04/06/2024 11:17:00 Plan of Treatment Reminders Order Date Submit Date Provider Last Modified By Organization Details Last Modified Time Details Appointments Wellnes s Visit 30 2025 02:30P KEVON FRANCO Not available Not available Not available Lab CBC 2023 024 [facility], [address] [place], [address], 01/22/2024 12:34:49 TSH, serum or plasma 2023 024 [facility], [address] [place], [address], 01/28/2024 12:56:19 Referral sleep medicin e referra l - scott, needs repeat sleep study 2024 025 [facility], [address], [address], [place], [address], 03/17/2024 10:22:44 cardiol ogist referra l - 63 yo w dyspnea on exertio n 2023 024 [facility], [address], [address], [place], [address], 03/25/2024 07:37:47 orthope dic surgeon referra l - b/l shoulde r pain for last year, recent x ray at [facility] for b/l shoulde rs, has had cortz shots 2023 024 [facility], [address], [address], [place], [address], 02/12/2024 10:43:[address]i [address] referra l 2023 024 [email or web address] [facility], [address] [place] [address] 1, [place], [address], 10/31/2023 13:39:54 Procedures None recorde d. Surgeries None recorde d. Imaging home sleep study - SCOTT and has not had repeat sleep study in several years and has lost weight 2024 [email or web address] [facility], [address], [address], [place], [address], 03/08/2024 12:19:55 XR, chest - persist ent cough x 3 weeks 2024 025 [facility] (Imaging), [address], [place], [address], 02/17/2024 13:51:41 XR, chest - NIGHT SWEATS AND DYSPNEA W EXERTIO N 2023 024 [facility] (Imaging), [address], [place], [address], 01/22/2024 13:21:53 electro cardiog howard 2023 024 [facility], [address], [place], [address], 01/22/2024 13:21:53 US, echocar diogram - 5'4 , 216lbs, no pacerHX OF HTN, AND DYSPNEA ON EXERTIO N 2023 024 [email or web address] [facility], [address] [place], [address], 01/23/2024 14:10:50 Medication Orders lorazep am 0.5 mg tablet 2024 025 [facility][id number], [address] [place] [address], [place], [id number], 04/06/2024 11:10:34 Wegovy 0.25 mg/0.5 mL subcuta neous pen injecto r 2024 025 [facility] #64936, [address], [place], [id number], 03/08/2024 08:59:26 buspiro ne 10 mg tablet 2024 025 [facility]81768, [address], [place], [id number], 03/08/2024 08:59:32 benzona barboza 200 mg capsule 2024 025 [facility]16612, [address], [place], [id number], 03/08/2024 08:27:44 codeine 10 mg-guai fenesin 100 mg/5 mL oral liquid 2024 025 [facility]58840, [address], [place], [id number], 04/06/2024 10:53:00 flutica sone propion ate 50 mcg/act uation nasal spray,s uspensi on 2024 025 [facility] #41145, [address], [place], [id number], 02/17/2024 12:46:52 ondanse solis 4 mg disinte grating tablet 2023 024 [facility] #40978, [address], [place], [id number], 01/22/2024 11:24:52 lorazep am 0.5 mg tablet 2023 024 [facility] #60144, [address], [place], [id number], 01/22/2024 11:24:56 meloxic am 15 mg tablet 2023 024 [facility] #77601, [address], [place], [id number], 01/23/2024 19:41:01 lidocai ne 5 % topical patch 2023 024 [facility] #00351, [address], [place], [id number], 10/30/2023 15:14:26 Patient TargetsNo targets recorded. Patient Instructions Encounter Date Encounter Id Patient Instructions Last Modified By Organization Details Last Modified Time 10/30/2023 [id number] Information on HEART HEALTH discussed today: Heart disease is the leading cause of in [place]. The [place] [employer] (AHA) recommends at least 150 minutes (2.5 hours) of heart-pumping physical activity per week. Only about one in five adults and teens get enough exercise to maintain good health. Being more active can help all people think, feel and sleep better and perform daily tasks more easily. Visit the [employer] website for more information below: Copy and paste this website address into your browser for more information. https://www.heart .org/en/healthy-l iving/fitness/fit ness-basics/aha-r ixp-kny-vuuvndqm- roxycxoa-dn-obzlv s A great [employer] website for exercise at home discussed today is: Senior Murguia by Agnieszka on [employer] This link below is a 1 mile walk. She has many different exercise routines. Copy and paste this website address below into your browser for the 1 Mile Walk. https://www.[employer].com/watch?v=Wy oPnAg7PYS MOVEME NT IS MEDICINE--------- -- Not available 10/30/2023 15:15:16 01/22/2024 [id number] Discussed role transition in May; recommend seeing Nancy This dictation was performed using voice recognition software. Word substitution may have occurred, and may have gone unnoticed and uncorrected. Not available 01/25/2024 16:36:05 03/08/2024 [id number] Information on HEART HEALTH discussed today: Heart disease is the leading cause of in [place]. The [place] [employer] (AHA) recommends at least 150 minutes (2.5 hours) of heart-pumping physical activity per week. Only about one in five adults and teens get enough exercise to maintain good health. Being more active can help all people think, feel and sleep better and perform daily tasks more easily. Visit the [employer] website for more information below: Copy and paste this website address into your browser for more information. https://www.heart .org/en/healthy-l iving/fitness/fit ness-basics/aha-r smr-otq-jqrtlmmp- emwgwtuk-ap-wlrnx s A great [employer] website for exercise at home discussed today is: Senior Blade Aaron on [employer] This link below is a 1 mile walk. She has many different exercise routines. Copy and paste this website address below into your browser for the 1 Mile Walk. https://www.[employer]enHub.com/watch?v=Wy nAwLf2XAW MOVEME NT IS MEDICINE--------- -- Not available 03/08/2024 08:54:30 04/06/2024 [id number] CCM: The provide r and patient discussed the Chronic Care Management program, including the services provided, and any fees associated with them. Not available 04/06/2024 08:32:46 Reason for Referral Orthopedic Surgeon Referral for Bilateral shoulder joint pain b/l shoulder pain for last year, recent x ray at [facility] for b/l shoulders, has had cortz shots Referring Physician: Catrachita Prado [facility], Encounter Date: 10/30/2023 Physical Therapist Referral for Bilateral shoulder joint pain Referring Physician: Catrachita Prado [facility], Encounter Date: 10/30/2023 Rotor Balancer Referral for Dy spnea on exertion 63 yo w dyspnea on exertion Referring Physician: Catrachita Prado [facility], Encounter Date: 01/22/2024 Sleep Medicine Referral for Sleep apnea scott, needs repeat sleep study Referring Physician: Catrachita Prado [facility], Encounter Date: 03/08/2024 Results Created Date Observation Date Name Description Value Unit Range Abnormal Flag Note LastModifiedBy Organization Detail LastModifiedTime 01/22/2001/22/2024 CBC WBC 8.11 K/??L 3.98-1 0.04 Not Available [address], [address], 01/22/2024 12:34:49 01/22/20 24 01/22/2024 CBC RBC 4.71 M/??L 3.93-5 .22 Not Available [address], [address], 01/22/2024 12:34:49 01/22/20 24 01/22/2024 CBC HGB 14.6 g/dL 11.2-1 5.7 Not Available [address], [address], 01/22/2024 12:34:49 01/22/20 24 01/22/2024 CBC HCT 43.3 % 34.1-4 4.9 Not Available [address], [address], 01/22/2024 12:34:49 01/22/20 24 01/22/2024 CBC MCV 91.9 fL 79.4-9 4.8 Not Available [address], [address], 01/22/2024 12:34:49 01/22/20 24 01/22/2024 CBC MCH 31.0 pg 25.6-3 2.2 Not Available [address], [address], 01/22/2024 12:34:49 01/22/20 24 01/22/2024 CBC MCHC 33.7 g/dL 32.2-3 5.5 Not Available [address], [address], 01/22/2024 12:34:49 01/22/20 24 01/22/2024 CBC plt 217 K/??L 182-36 9 Not Available [address], [address], 01/22/2024 12:34:49 01/22/20 24 01/22/2024 CBC MPV 10.2 fL 9.4-12 .3 Not Available [address], [address], 01/22/2024 12:34:49 01/22/20 24 01/22/2024 CBC neut% 54.5 % 34.0-7 1.1 Not Available [address], [address], 01/22/2024 12:34:49 01/22/20 24 01/22/2024 CBC neut# 4.42 1.56-6 .13 Not Available [address], [address], 01/22/2024 12:34:49 01/22/20 24 01/22/2024 CBC lymph % 31.1 % 19.3-5 1.7 Not Available [address], [address], 01/22/2024 12:34:49 01/22/20 24 01/22/2024 CBC lymph # 2.52 K/??L 1.18-3 .74 Not Available [address], [address], 01/22/2024 12:34:49 01/22/20 24 01/22/2024 CBC mono% 12.5 % 4.7-12 .5 Not Available [address], [address], 01/22/2024 12:34:49 01/22/20 24 01/22/2024 CBC mono# 1.01 0.24-0 .56 high Not Available [address], [address], 01/22/2024 12:34:49 01/22/20 24 01/22/2024 CBC eo% 1.2 % 0.7-5. 8 Not Available [address], [address], 01/22/2024 12:34:49 01/22/20 24 01/22/2024 CBC eo# 0.10 0.04-0 .36 Not Available [address], [address], 01/22/2024 12:34:49 01/22/20 24 01/22/2024 CBC baso% 0.2 % 0.1-1. 2 Not Available [address], [address], 01/22/2024 12:34:49 01/22/20 24 01/22/2024 CBC baso# 0.02 0.00-0 .08 Not Available [address], [address], 01/22/2024 12:34:49 01/22/20 24 01/22/2024 CBC RDW-CV 12.5 % 11.7-1 4.4 Not Available [address], [address], 01/22/2024 12:34:49 01/22/20 24 01/22/2024 CBC Ig% 0.500 % 0.000- 1.500 Ig % >0.5 Indic ates possi ble Left Shift Not Available [address], [address], 01/22/2024 12:34:49 01/22/20 24 01/22/2024 CBC Ig# 0.040 0.000- 0.093 Not Available [address], [address], 01/22/2024 12:34:49 01/22/20 24 01/22/2024 CBC NRBC% 0.0 % 0.0-0. 2 Not Available [address], [address], 01/22/2024 12:34:49 01/22/20 24 01/22/2024 CBC NRBC# 0.000 0.000- 0.012 Not Available [address], [address], 01/22/2024 12:34:49 01/22/20 24 01/23/2024 LIPID PANEL cholesterol 236 mg/dL <200 mg/dl Rand able 200-2 39 mg/dl Borde rline High >240 mg/dl High Not Available [address], [address], 01/23/2024 15:35:40 01/22/20 24 01/23/2024 LIPID PANEL triglyceride s 87 mg/dL <150 mg/dL Nette l 150-1 99 mg/dL Borde rline High 200-4 99 mg/dL High >500 mg/dL Very High Not Available [address], [address], 01/23/2024 15:35:40 01/22/20 24 01/23/2024 LIPID PANEL direct HDL 77 mg/dL <40 mg/dl - Major Risk for CHD >60 mg/dl - Negat dominique Risk for CHD Not Available [address], [address], 01/23/2024 15:35:40 01/22/20 24 01/23/2024 RENAL PANEL glucose 96 mg/dL 70-100 Not Available [address], [address], 01/23/2024 15:35:41 01/22/20 24 01/23/2024 RENAL PANEL BUN 19 mg/dL 7-18 high Not Available [address], [address], 01/23/2024 15:35:41 01/22/20 24 01/23/2024 RENAL PANEL creatinine 0.7 mg/dL 0.8-1. 3 low Not Available [address], [address], 01/23/2024 15:35:41 01/22/20 24 01/23/2024 RENAL PANEL B/C 27.1 ratio Not Available [address], [address], 01/23/2024 15:35:41 01/22/20 24 01/23/2024 RENAL PANEL [...] borat ion (CKD- EPI) Equat ion (Shea villarreal et. al 2020) as recom cathi d by the Natio nal Kidne y Found ation . eGFR is based on age, serum creat inine , and sex. CKD-E PI does not calcu late eGFR by race, does not apply to child annette (age <18 years ), and shoul d not be used in pregn shiloh. Not Available [address], [address], 01/23/2024 15:35:41 01/22/20 24 01/23/2024 RENAL PANEL sodium 142 mmol/ L 136-14 5 Not Available [address], [address], 01/23/2024 15:35:41 01/22/20 24 01/23/2024 RENAL PANEL potassium 5.1 mmol/ L 3.5-5. 1 Not Available [address], [address], 01/23/2024 15:35:41 01/22/20 24 01/23/2024 RENAL PANEL chloride 101 mmol/ L 96-107 Not Available [address], [address], 01/23/2024 15:35:41 01/22/20 24 01/23/2024 RENAL PANEL anion gap 10.4 5.0-15 .0 Not Available [address], [address], 01/23/2024 15:35:41 01/22/20 24 01/23/2024 RENAL PANEL CO2 31 mmol/ L 21-32 Not Available [address], [address], 01/23/2024 15:35:41 01/22/20 24 01/23/2024 RENAL PANEL calcium 9.3 mg/dL 8.5-10 .3 Not Available [address], [address], 01/23/2024 15:35:41 01/22/20 24 01/23/2024 RENAL PANEL albumin 4.2 g/dL 3.4-5. 0 Not Available [address], [address], 01/23/2024 15:35:41 01/22/20 24 01/23/2024 RENAL PANEL phosphorous 4.00 mg/dL 2.50-4 .90 Not Available [address], [address], 01/23/2024 15:35:41 01/22/20 24 01/23/2024 URIC ACID uric acid 5.0 mg/dL 2.6-6. 0 Not Available [address], [address], 01/23/2024 15:35:42 01/22/20 24 01/23/2024 DIREC T [...] with 0-1 risk facto r is not neces mahendra. Not Available [address], [address], 01/23/2024 15:35:43 01/22/20 24 01/28/2024 TSH TSH 2.30 uIU/m L 0.50-6 .00 The Ameri can Colle ge of Endoc rinol ogy and Ameri can Thyro id Assoc iatio n recom mend goal TSH value s betwe en 0.4-4 .0 mIU/m L. Not Available [address], [address], 01/28/2024 12:56:19 01/22/20 24 01/28/2024 VITAM IN [...] er than 30 ng/mL . Not Available [address], [address], 01/28/2024 12:56:20 01/22/20 24 01/22/2024 elect rocar diogr am No observ ation record ed. MARSHALL [address], [address], 01/22/2024 15:15:42 01/22/20 elect rocar diogr am [...] . IMPRES ENMANUEL: No acute diseas e. Readin g Physic leo: [facility] ([facility]aging) [address], [place], [address], 02/05/2024 08:50:38 02/16/19 25 02/17/2024 XR, chest [...] IMPRES ENMANUEL: No acute diseas e. Nereyda Youngblood leo: Mohamud Odell [facility] (Imaging) [address], [place], [address], 02/24/2024 14:07:58 03/05/1903/04/2024 trans -thor acic echoc ardio gram (TTE) (PROC ) No observ ation record ed. [facility] [address], [place], [address], 03/07/2024 20:03:10 Result Notes None recorded. Problems Name Problem SNOMED Code Status Onset Date Resolution Date Notes Provider Name and Address Organization Details Recorded Time Herpes zoster 1920460 Completed 12/30/2012 Not Available [facility] 3 02:02:58 Cough 78879732 Active Catrachita Prado NP [address] [place] [address], [address] , [facility] 2 10:15:28 Gastroes ophageal reflux disease 653456799 Active 2016 Catrachita Prado NP [address] [place] [address], [address] , [facility] 2 10:15:28 Irritabl e bowel syndrome 34828875 Active 2016 Catrachita Prado NP [address] [place] [address], [address] , [facility] 2 10:15:28 Divertic ulosis of duodenum 701782854 Active [address] Kahlil Prado NP [address] [place] [address], [address] , [facility] 2 10:15:28 Bursitis of shoulder 052357447 Active 2017 R- dr gonsalez as[ 03/25/17- cortz inj. ] Catrachita Prado NP [address] [place] [address], [address] , [facility] 2 10:15:28 Colonosc opy Active 2018 2016 CSCOPE WNL, REPEAT IN 10 YRS Catrachita Prado NP [address] [place] [address], [address] [place] [address] , [facility] 2 10:15:28 Hemorrho ids 93291398 Active 2018 ON SCOPE 2016. Catrachita Prado NP [address] [place] [address], [address] , [facility] 2 10:15:27 Factor V deficien cy 7530948 Active [address] Jenise Harris for flights over 6 ours per. While flying, get up every 1.5 hours and walk around, increase fluids, and wear compress ion stocking s. Catrachita Prado NP [address] [place] [address], [address] [place] [address] , [facility] 4 20:53:58 Chest pain 17336674 Active 2018 Nuclear stress test wnl, 05/26/18 Catrachita Prado NP [address] [place] [address], [address] , [facility] 2 10:15:27 Impaired fasting glycemia 721092307 Active 2018 Catrachita Prado NP [address] [place] [address], [address] , [facility] 2 10:15:27 Depressi ve disorder 30031682 Active 2019 Catrachita Prado NP [address] [place] [address], [address] , [facility] 2 10:15:27 Osteopor osis 73809054 Active [address] Kim Prado NP [address] [place] [address], [address] , [facility] 2 10:15:27 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 Mild on BA swallow, dr morley, 11/18/19 Catrachita Prado NP [address] [place] [address], , [facility] 2 10:15:27 Hyperten sive disorder 72901495 Active 2019 Catrachita Prado NP [address] [place] [address], , [facility] 2 10:15:27 Insomnia 915428582 Active 2020 Catrachita Prado NP [address] [place] [address], , [facility] 2 10:15:27 Ex-smoke r 4481697 Active 2020 Catrachita Prado NP [address] [place] [address], , [facility] 4 21:12:17 Sleep apnea 76849713 Active 2020 cpap Catrachita Prado NP [address] [place] [address], , [facility] 4 11:30:56 Prediabe brandie 767028980 Active 2020 Catrachita Prado NP [address] [place] [address], , [facility] 2 10:15:27 Morbid obesity 038628764 Active 2021 BMI > or = 35 with diagnosi s of hyperten enmanuel Carballo, TARIFF COMPILING CLERK null, [facility] 2 14:21:56 Multiple nodules of lung 597059801 Active 202207/12/23 Dr Fabio olmstead; 01/25/[address] scan-no further CT recommen ded as nodules have not changed. Stopped smoking in 2009 Catrachita Prado NP [address] [place] [address], , [facility] 4 19:33:38 Gout 66478996 Active 2023 Catrachita Prado NP [address] [place] [address], , [facility] 4 11:27:39 Essentia l hyperten enmanuel 57175257 Active 2023 * Catrachita Prado NP [address] [place], [address] , [facility] 4 16:35:51 Obesity 396564351 Completed 200611/23/2021 Removal Reason: Morbid obesity added to the problem list Bisi Carballo LPN [facility], [facility] 2 14:21:18 Common cold 10748683 Completed 200612/30/2012 Not Available [facility] 3 02:00:30 Chest pain 50024676 Completed 12/30/2012 Catrachita Prado NP [address] [place] [address], [address] , [facility] 2 10:15:27 Temporom andibula r joint disorder 50734311 Active Catrachita Prado NP [address] [place] [address], [address] , [facility] 2 10:15:28 Allergic rhinitis 05329124 Active 2006 Catrachita Prado NP [address] [place], [address] , [facility] 2 10:15:28 Cellulit is and abscess of upper arm 204717193 Completed 200612/30/2012 Not Available [facility] 3 02:03:57 Acute tonsilli tis 84190734 Completed 200612/30/2012 Not Available [facility] 3 02:04:15 Left upper quadrant pain 908041568 Completed 12/30/2012 Not Available [facility] 3 02:03:59 Disorder of hair AND/OR hair follicle Active 2007 Catrachita Prado NP [address] [place], [address] , [facility] 2 10:15:28 Problem Notes None recorded. Procedures Surgical History Date Name Laterality Status Provider Name and Address Organization Details Recorded Time 04/06/19 Medicare Wellness Visit completed Sae Teran MA [facility] 04/06/2024 08:32:39 04/06/19 25 Advanced Care Planning completed Sae Teran MA [facility] 04/06/2024 08:33:01 08/25/19 24 Cardiovascular disease risk reduction counseling completed Catrachita Prado NP [address] [place], [address], [facility] 08/25/2023 12:06:40 05/12/19 24 G2211 completed Catrachita Prado NP [address] [place], [address], [facility] 05/12/2023 15:58:38 04/07/19 24 G2211 robel Prado NP [address] [place] [address], [address], [facility] 04/07/2023 11:44:03 06/12/19 22 prevention-cardiov ascular risk reduction counseling completed Catrachita Prado NP [address] [place] [address], [address], [facility] 06/11/2021 19:15:45 06/12/19 22 prevention-annual alcohol misuse screening completed Catrachita Prado NP [address] [place] [address], [address], [facility] 06/11/2021 19:15:40 06/09/19 21 prevention-cardiov ascular risk reduction counseling completed Gaby Solorzano Susanna [facility] 06/08/2020 12:04:02 06/09/19 21 prevention-annual alcohol misuse screening completed Gaby [facility]zano [facility] [facility] 06/08/2020 12:04:02 01/30/20 16 Colonoscopy completed Catrachita Prado NP [address] [place], [address], [facility] 02/01/2016 09:00:19 Imaging Results Imaging Date Name Status LastModified by Organization Details LastModified Time 01/22/2024 electrocardiogram completed [address], [address], 01/22/2024 15:15:42 01/22/2024 electrocardiogram completed Informa tion not available 01/25/2024 21:05:10 01/22/2024 XR, chest completed [address] (Imaging) [address] [place], [address], 02/05/2024 08:50:38 02/17/2024 XR, chest completed [facility] (Imaging) [address] [place], [address], 02/24/2024 14:07:58 03/04/2024 trans-thoracic echocardiogram (TTE) (PROC) completed [address], [address], 03/07/2024 20:03:10 Procedure Notes None recorded. Medical Equipment None Reported. Allergies Allergen ID Allergen Name Allergen Category Reaction Reaction Severity Criticality Documentation Date Start Date Code Code System Note Provider Name and Address Organization Details Recorded Time 52883 codeine medicatio n itching Not available Not available 02/04/2010 2670 RxNorm Not Available [facility] 1 06:05:41 Medications Name Sig Start Date [...] TAKE 1 TABLET BY MOUTH TWICE DAILY 04/06 completed no longer taking this dose Not Available Not Available Not Available desonide 0.05 % topical cream APPLY EXTERNAL LY TO THE AFFECTED AREA TWICE DAILY FOR UP TO 7 DAYS 06/11 completed Not Available Not Available Not Available fluticaso ne 250 mcg-salme terol 50 mcg/dose blistr powdr for inhalatio n INHALE 1 PUFF BY MOUTH EVERY 12 HOURS active Not Available Not Available No t Available irbesarta n 150 mg-hydroc hlorothia zide [...] tablet TAKE 1 TABLET BY MOUTH DAILY 04/06 completed Not Available Not Available Not Available ciproflox acin 500 mg tablet TAKE [...] Available Not Available buspirone 10 mg tablet TAKE 1 TABLET BY MOUTH TWICE DAILY active Not Available Not Available No t Available hydrocodo ne 7.5 mg-acetam inophen 750 mg [...] BY MOUTH AT BEDTIME NEEDED FOR COUGH 04/06 completed Not Available Not Available Not Available hydrochlo rothiazid e 25 mg tablet [...] G 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 NEED TO HAVE BIOMATERIALS ENGINEER ON DAY OF PROCEDUR E 04/06 completed Not Available Not Available Not Available lisinopri l 10 mg-hydroc hlorothia zide [...] SM not taking 10/29/22 SM not taking 02-14-22 SM Not Available Not Available Not Available GaviLyte- N 420 gram oral solution 05/02 completed Not Available Not Available Not Available Zyrtec 10 mg capsule Take by oral route. 03/03 completed prn Not Available Not Available Not Available Afluria 1725-2147 (PF) 45 mcg (15 mcg x 3)/0.5 mL intramusc ular syringe inject 0.5 millilit er intramus cularly active Not Available Not Available No t Available Fluvirin 8262-2804 (PF) 45 mcg (15 mcg x 3)/0.5 mL IM syringe inject 0.5 millilit er intramus cularly 11/06 completed Not Available Not Available Not Available Afluria 5410-6944 (PF) 45 mcg(15 mcg x 3)/0.5 mL [...] Not Available Vitals Date Recorded Body height Body mass index (BMI) Body weight Heart rate Systolic blood pressure Diastolic blood pressure Provider Name and Address Organization Details Last Updated DateTime 4 163.2 cm 37.5 kg/m2 84091.0 2 g 80 /min 108 mm[Hg] 64 mm[Hg] Gaby TerryMolina lin CHARI [facility] 4 14:38:12 Date Recorded Body height Body mass index (BMI) Body weight Heart rate Systolic blood pressure Diastolic blood pressure Provider Name and Address Organization Details Last Updated DateTime 4 163.2 cm 36.9 kg/m2 66904.4 g 74 /min 110 mm[Hg] 68 mm[Hg] Josselyn De La Cruz [facility] 4 09:59:05 Date Recorded Body height Oxygen saturation Oxygen saturation in Arterial blood by Pulse oximetry Heart rate Body temperature Systolic blood pressure Diastolic blood pressure Provider Name and Address Organization Details Last Updated DateTime 5 163.2 cm 96 % 96 % 66 /min 98.2 [degF] 128 mm[Hg] 76 mm[Hg] Delmis Jenkins [facility] 5 12:23:12 Date Recorded Body weight Provider Name an d Address Organization Details Last Updated DateTime 02/25/2024 58204.4 g Isabel Pineda, JUNE [address] [place] [address], [phone] 02/25/2024 10:27:22 Date Recorded Body height Heart rate Systolic blood pressure Diastolic blood pressure Provider Name and Address Organization Details Last Updated DateTime 03/08/2024 163.2 cm 65 /min 122 mm[Hg] 68 mm[Hg] Jeanna Hook [facility] 03/08/2024 08:07:42 Date Recorded Body mass index (BMI) Body weight Provider Name and Address Organization Details Last Updated DateTime 03/08/2024 37.7 kg/m2 815191.01 g Catrachita Prado, JUNE [address] [place] [address], [address], [facility] 03/08/2024 08:25:38 Date Recorded Body height Body mass index (BMI) Body weight Heart rate Oxygen saturation Oxygen saturation in Arterial blood by Pulse oximetry Systolic blood pressure Diastolic blood pressure Provider Name and Address Organization Details Last Updated DateTime 5 163.2 cm 38 kg/m2 626434. 8 g 64 /min 98 % 98 % 118 mm[Hg] 64 mm[Hg] Sae Cookgrey [facility] 5 10:41:45 Social History Question Answer Notes LastModified by Organizat ion Details LastModified Time Tobacco Smoking Status Former Smoker Quit 2009 wasnt daily smoker. started at 17, would have a few cigs / week. never smoked a pack a day. Catrachita Prado NP [address] [place] [address], [phone], [facility] 04/07/2023 11:33:23 What Is Your [...] not available 11/11/2019 What Is Your Occupation? [email or web address] Information not available 12/27/2010 When Did You Quit Smoking? 11-15yearssi [email or web address] ette Quit In 2009 Information not available [...] Per EC 08/23/16 Information not available 07/31/2011 Patient Has Health Care Proxy Signed And In Chart Yes [email or web address] Information not available 04/30/2018 CCM Consent Discussion 04/06/2024 pinky Information not available 04/07/2024 Marital Status Information not available 12/27/2010 Mosquito Repellent Used Routinely Yes 17 Information not available 12/27/2010 What Was The Date Of Your Most Recent Tobacco Screening? 04/06/2024 Information not available 04/06/2024 How Many Children Do You Have? 3 Randi [eye Issue][place]- [employer] In [facility]; Jesse 16 [employer]- [employer], Kortney-ADELA - [employer]; Jim/Portia- [employer]. Information not available 11/28/2010 Seat Belts Used Routinely Yes 17 Information not available 12/27/2010 Smoke Alarm In Home Yes 17 Information not available 12/27/2010 Do You Or Have You Ever Used Smokeless Tobacco? Never Used Smokeless Tobacco Information not available 11/11/2019 General Stress Level Medium Information not available 12/13/2014 Do You Use Sunscreen Routinely? Yes 17 Information not available 12/27/2010 Do You Or Have You Ever Used Any Other Forms Of Tobacco Or Nicotine? No Information not available 09/21/2021 Sex: Female Functional Status None recorded. Mental Status None recorded. Family History Relationship Description Onset Age of this Age Resolved Age Notes LastModified by Organization Details LastModified Time Father Myocardial infarction d49 Congen ital heart anomal y. had severa l [place]'s. Not available 05/27/2018 11:45:46 Mother Malignant tumor of breast 45 previo usly record ed as Cancer -Breas t aleja Not available 12/13/2014 17:05:24 Mother Hypertensive disorder [...] virus, trivalent, preservative 1 completed Not Available [facility] 02/27/2019 02:33:04 influenza, unspecified formulation 7 completed Not Available [facility] 10/11/2022 10:57:57 influenza, unspecified formulation 7 completed Not Available [facility] 10/11/2022 10:57:57 Influenza, split virus, trivalent, PF 3 completed Not Available [facility] 02/27/2019 02:34:58 Influenza, split virus, trivalent, preservative 2 completed Not Available [facility] 10/11/2022 10:57:57 Influenza, split virus, quadrivalent, PF 6 completed Not Available [facility] 02/27/2019 02:27:06 influenza, unspecified formulation 4 completed Not Available [facility] 10/11/2022 10:57:57 influenza, unspecified formulation 5 completed Not Available [facility] 10/11/2022 10:57:57 Influenza, split virus, quadrivalent, PF 8 completed Not Available [facility] 02/27/2019 02:35:35 Tdap 0 completed Not Available [facility] 02/27/2019 02:15:21 influenza, unspecified formulation 7 completed Not Available [facility] 10/11/2022 10:57:57 Influenza, split virus, quadrivalent, preservative 9 completed Not Available [facility] 10/11/2022 10:57:57 Td (adult), 2 Lf tetanus toxoid, preservative free, adsorbed 1 completed Catrachita Prado NP [address] [place] [address], [phone], [facility] 06/08/2020 13:00:53 Influenza, split virus, quadrivalent, PF 1 completed CHARI Swain, [facility] 11/06/2020 09:14:54 Influenza, split virus, quadrivalent, preservative 0 completed Not Available [facility] 10/11/2022 10:57:57 COVID-19, mRNA, LNP-S, PF, 30 mcg/0.3 mL dose 1 completed Not Available [facility] 10/11/2022 10:57:57 COVID-19, mRNA, LNP-S, PF, 30 mcg/0.3 mL dose 1 completed Not Available [facility] 10/11/2022 10:57:57 Influenza, split virus, quadrivalent, PF 3 completed Catrachita Prado NP [address] [place] [address], [phone], [facility] 02/19/2022 10:49:43 Influenza, split virus, trivalent, PF 4 completed Catrachita Prado NP [address] [place] [address], [phone], [facility] 10/30/2023 14:51:57 COVID-19, mRNA, LNP-S, PF, 30 mcg/0.3 mL dose 1 completed Not Available [facility] 10/11/2022 10:57:57 Past Encounters Encounter ID Performer Location Encounter Start Date Encounter Closed Date Diagnosis/Indication Diagnosis SNOMED-CT Code Diagnosis ICD10 Code Diagnosis Note [id number] , [facility], OFFICE [address] [facility] [place] [address] 07/14/2006 10:59:34 07/14/2006 13:28:34 [id number] LAB - [facility] [address] [facility] [place] [place] [address] 12/05/2006 07:48:33 12/05/2006 08:18:35 [id number] [facility], OFFICE [address] [facility] [place] [address] 12/15/2006 15:55:31 03/02/2008 02:02:29 [id number] [facility], OFFICE [address] [place] [address] 12/20/2006 10:00:52 03/02/2008 02:02:29 [id number] [facility], OFFICE [address] [facility] [place] [address] 01/20/2007 15:36:08 03/02/2008 02:02:29 [id number] [facility], OFFICE [address] [facility] [place] [address] 10/13/2007 11:29:37 03/02/2008 02:02:29 [id number] [facility], OFFICE [address] [facility] [place] [address] 10/20/2007 10:50:50 03/02/2008 02:02:29 [id number] [facility], OFFICE [address] [facility] [place] [address] 10/26/2007 15:08:30 03/02/2008 02:02:29 [id number] , [facility], OFFICE [address] [facility] [place] [address] 08/26/2008 09:04:58 09/01/2008 12:01:30 [id number] LAB - [address] [place] [address] 10/28/2008 09:14:43 10/28/2008 11:11:53 [id number] , [facility], OFFICE [address] [facility] [place] [address] 08/18/2009 16:25:26 08/23/2009 15:22:10 [id number] , [facility], OFF[address] [facility] [place] [address] 08/23/2009 10:18:10 08/28/2009 09:07:59 [id number] , [facility], OFF[address] [facility] [place] [address] 10/04/2009 16:30:11 10/09/2009 12:51:17 [id number] , [facility], [address] [place] [address] 02/04/2010 09:55:51 02/06/2010 08:32:17 [id number] Radiology , [facility] [address] [facility] [place] [address] 02/05/2010 14:02:39 02/06/2010 10:30:24 [id number] , [facility], OFFICE [address] [facility] [place] [address] 11/28/2010 10:08:18 11/28/2010 11:22:18 [id number] , [facility], OFF[address] [facility] [address] 04/29/2011 14:58:16 04/29/2011 15:34:52 [id number] , [facility], OFF[address] [facility] [address] 07/31/2011 17:04:25 08/01/2011 06:50:27 [id number] Catrachita Prado NP , [facility], OFFICE [address] [facility] [place] [address] 12/03/2011 11:10:52 12/03/2011 12:04:00 [id number] Logan Romero , [facility], OFFICE [address] [facility] [address] 05/05/2012 09:33:31 05/05/2012 10:24:42 [id number] Catrachita Prado NP FP, [facility], OFFICE [address] [facility] on [facility] [place] [address] 09/09/2012 16:33:02 09/09/2012 17:06:41 [id number] Hyacinth VELEZ, [facility], OFFICE [address] [facility] [place] [address] 10/15/2012 17:05:10 10/16/2012 06:53:06 Backache [id number] Shelley Darling NP FP, [facility], OFFICE [address] [facility] [place] [address] 10/27/2012 09:55:16 10/27/2012 10:20:06 Herpes zoster 4775665 [id number] AGUSTIN, [facility], OFFICE [address] [place] [address] on [facility] [place] [address] 11/25/2012 13:34:26 11/25/2012 14:24:23 Influenza vaccine needed 7807713354 106 Depressive disorder 09984128 Impaired f asting glycemia 957837029 Adult heal th examination 669593652 see Risk Assesment and Lifestyle Change Couseling section above Obesity 459005736 Lipoma of skin 424680917 [id number] Chery VELEZ, [facility], OFFICE [address] [place] [address] 02/16/2013 16:29:04 02/19/2013 15:42:52 Obesity 587985638 [id number] JUNE Fuller, [facility], OFFICE [address] [place] [address] 02/17/2013 12:12:21 02/17/2013 13:34:09 Anxiety 89169758 [id number] JUNE Fuller, [facility], OFFICE [address] [place] [address] 02/23/2013 16:00:42 02/24/2013 14:55:52 Obesity 483055506 [id number] JUNE Fuller, [facility], OFFICE [address] [place] [address] 03/02/2013 16:02:58 03/03/2013 13:38:47 Obesity 223638345 [id number] Lula Ivan , [facility], OFFICE [address] [place] [address] 07/20/2013 13:48:42 07/20/2013 14:43:35 Adult health examination 744852517 see Risk Assessment and Lifestyle Change Counseling section above Counseling [id number] Impaired f asting glycemia 348792401 [id number] CHARI Swain , [facility], OFFICE [address] [place] [address] 11/15/2013 14:01:04 11/15/2013 14:54:07 Depressive disorder 78761729 Stable on meds. Cont w/ current meds. Insomnia 098152528 Switc h to trazodone. Bladder mu scle dysfunction - overactive 951285855 Stable on meds. Cont w/ current meds. [id number] Blanca Chisholm , [facility], OFFICE [address] [place] [address] 12/02/2013 08:20:14 12/02/2013 09:09:15 Dizziness 468203561 [facility] [id number] Fabiola Lind , [facility], OFFICE [address] [place] [address] 03/15/2014 13:20:45 03/15/2014 14:16:19 Insomnia 301686981 Switch to vistaril. [id number] , [facility], OFFICE [address] [place] [address] 07/22/2014 10:03:12 07/22/2014 11:21:33 Adult health examination 479937601 see Risk Assessment and Lifestyle Change Counseling section above Counseling 280189793 Screening for malignant neoplasm of cervix 102945572 Obesity 608789940 [id number] Kaylen Salazar , [facility], OFFICE [address] [place] [address] 11/03/2014 16:50:44 11/03/2014 17:54:35 Lifestyle 839752491 Candidiasis of mouth 54066012 Chelitis Hyperlipidemia 77747386 Cont to work on eating a mediterrae nan diet. Impaired f asting glycemia 371212746 Continue to work on healthy eating. Weight loss will help with lowering your sugar. Depressive disorder 30658980 Stable on meds. Cont w/ current meds. [id number] Lizandro James MD , [facility], OFFICE [address] [place] [address] 12/13/2014 16:07:56 12/13/2014 17:04:36 Acute upper respiratory infection 50533297 J06.9 Educated patient that URI is a [...] or failure to resolve in 2-4 weeks. [id number] Priscilla Early , [facility], OFF[address] [place] [address] 12/26/2014 12:11:43 12/26/2014 15:22:13 Acute upper respiratory infection 52598984 J06.9 Educated patient that URI is a [...] failure to resolve in 2-4 weeks. Cough 96180747 R05 [id number] Catrachita Prado NP FP, [facility], OFFICE [address] [place] [address] 11/07/2015 13:47:27 11/07/2015 14:40:24 Adult health examination 173254653 Z00.00 see Risk Assessment and Lifestyle Change Counseling section above Counseling 443433135 Z71 .9 Impaired f asting glycemia 194110757 R73.01 Continue to work on healthy eating. Weight loss will help with lowering your sugar. Restless legs 42693434 G 25.81 Insomnia 350965239 G47.0 0 Active or passive immunization 585466643 Z23 [id number] Catrachita Prado NP , [facility], OFFICE [address] [place] [address] 12/19/2015 13:19:14 12/19/2015 15:58:21 Anxiety 63405386 F41.9 [id number] Catrachita Prado NP , [facility], OFFICE [address] [place] [address] 05/02/2016 13:37:49 05/03/2016 15:50:07 Anxiety 10041800 F41.9 Insomnia 629527947 G47.0 0 Adult [facility] th examination 233085552 Z00.00 see Risk Assessment and Lifestyle Change Counseling section above [id number] Catrachita Prado NP , [facility], OFFICE [address] [place] [address] 08/23/2016 09:10:05 08/23/2016 10:06:38 Impaired fasting glycemia 778535404 R73.01 Continue to work on healthy eating. Weight loss will help with lowering your sugar. Mixed hyperlipidemia 267 287940 E78.2 [id number] Catrachita Prado NP , [facility], OFFICE [address] [place] [address] 01/21/2017 13:25:09 01/21/2017 14:27:57 Adult health examination 992087688 Z00.00 see Risk Assessment and Lifestyle Change Counseling section above Counseling 273832600 Z71 .9 [id number] Yudy Romero MD FP, [facility], [address] [place] [address] 04/24/2017 12:11:16 04/25/2017 09:37:20 Cough 84461954 R05 probably post viral, RTO if worsens or SOB. has used tessalon, albuterol adn delsym in past for cough,. albuterol was best [id number] Agnieszka Taylor , [facility], OFFICE [address] [place] [address] 10/22/2017 10:24:18 10/22/2017 11:25:44 Active or passive immunization 776974806 Z23 Anxiety 83773540 F41.9 -discd deep breathing- can use [employer] for relaxation Fatigue 80278584 R53.83 -check labs Low back pain 146983057 M54.5 -to see Dr Bo -tylenol and ice as needed [id number] MD AGUSTIN Becker, [facility], OFFICE [address] [place] [address] 04/29/2018 10:38:48 04/29/2018 11:58:06 Obesity 803984584 E66.9 Depression screening 171 505906 Z13.31 Chest pain 88266936 R07. 9 [id number] Agnieszka VELEZ, [facility], OFFICE [address] [place] [address] 05/27/2018 11:05:54 05/27/2018 14:03:05 Adult health examination 790723392 Z00.00 see Risk Assessment and Lifestyle Change Counseling section above Counseling 627951487 Z71 .9 Depression screening 171 741111 Z13.89 depression screening tool administer ed, entered into emr, scored and discussed, time greater than 7.5 minutes Anxiety 43833970 F41.9 -discd deep breathing- can use [employer] for relaxation [id number] Agnieszka VELEZ, [facility], OFFICE [address] [place] [address] 08/25/2018 08:57:33 08/25/2018 09:41:59 Morbid obesity 675402399 E66.01 -will work on losing wt and eating more fruits and vegiesCons idering WW. Active or passive immunization 824270680 Z23 Asthma 973221119 J45.90 9 - Impaired f asting glycemia 694532774 R73.01 Continue to work on healthy eating. Weight loss will help with lowering your sugar. Increased blood pressure 26152295 R03.0 See below. 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 [id number] Justin Morocho MD , [facility], OFFICE [address] [place] [address] 12/02/2018 14:44:13 12/02/2018 15:17:21 Acute upper respiratory infection 86657983 J06.9 Educated patient that URI is a [...] or failure to resolve in 2-4 weeks. [id number] Lizandro James MD , [facility], OFFICE [address] [place] [address] 12/29/2018 08:50:26 12/29/2018 09:47:43 Essential hypertension 44153553 I10 Gastroesop hageal reflux disease 793452496 K21.9 -trial of lemon juice and prn famotidine [id number] Justin Morocho MD , [facility], OFFICE [address] [place] [address] 01/20/2019 13:33:35 01/20/2019 15:04:46 Acute upper respiratory infection 64313897 J06.9 Cough 07645164 R05 looks like uri, lungs CLEAR. If SOB, or fever or persists another week, would consdier CXR [id number] Lizandro James MD , [facility], OFF[address] [place] [address] 02/12/2019 10:45:22 02/12/2019 13:14:01 Essential hypertension 13321199 I10 Morbid obesity 569311800 E66.01 -will work on losing wt and eating more fruits and vegiesCons idering WW. [id number] Justin Morocho MD , [facility], OFFICE [address] [place] [address] 04/07/2019 14:13:25 04/07/2019 16:00:16 Essential hypertension 22065933 I10 [id number] Justin Morocho MD , [facility], OFFICE [address] [place] [address] 06/07/2019 09:01:09 06/10/2019 14:59:53 Essential hypertension 34485182 I10 After a discussion of treatment and [...] in 2 months. Major depr essive disorder 203069547 F32.9 -stable-co ntinue w/ meds Seasonal a llergic rhinitis 350173618 J30.2 -stable on zyrtec- see instructio ns below [id number] Nicole Wynne NP , [facility], [address] [place] [address] 11/11/2019 10:35:40 11/12/2019 09:00:41 Pleuritic pain 1042161 R07.81 Mid sternal pain, worse with inhaling, coughing or movement when in bed. Concerned for clot as she has Factor V leiden and was in car extensivel y last few days.Also discussed ?indigesti on as she has IBS and ate pizza/bage ls in [facility], but she reports indigestio n does not usually last this long.Will have her come into office, assess lungs and order chest Xray - see that visit note for addt'l info. [id number] Priscilla Dinh MD , [facility], [address] [place] [address] 11/11/2019 13:28:16 11/12/2019 08:56:10 Pleuritic pain 9654899 R07.81 Mid sternal pain, worse with inhaling, coughing or movement when in bed. Concerned for clot as she has Factor V leiden and was in car extensivel y last few days.Also discussed ?indigesti on as she has IBS and ate pizza/bage ls in [facility], but she reports indigestio n does not usually last this long.Will have her come into office, assess lungs and order chest Xray. Cough & pleuritic pain - was in [place] x several days - will order COVID test to R/o.discus sed concerning sx and when to seek ED/UC and pt states understand ing - including jaw pain, worsening chest pain, tingling to hand/finge rs [id number] Lizandro James MD , [facility], OFF[address] [place] [address] 12/23/2019 16:28:37 01/18/2020 17:55:02 Anxiety 78868300 F41.9 -discd deep breathing- can use [employer] T[employer] for relaxation -continue to walk-discu ssed increase in dementia on lorazepam Essential hypertension 70535679 I10 After a discussion of treatment and [...] 5. Follow up in 2 months. 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 [id number] Lizandro James MD , [facility], OFFICE [address] [place] [address] 6 06/08/2020 12:01:33 06/09/2020 10:36:24 Adult health examination 306558295 Z00.00 see Risk Assessment and Lifestyle Change Counseling section above; Cardiovasc ular risk reduction was discussed including benefits and risks of aspirin, exercise goals, healthy eating and healthy weight . Discussion greater than 7.5 minutes. Depression screening 171 833668 Z13.31 depression screening tool administer ed, entered into emr, scored and discussed, time greater than 7.5 minutes Screening for alcohol abuse 835125367 Z13.39 Counseling 123818448 Z71 .89 Essential hypertension 47432035 I10 After a discussion of treatment and [...] in 3 months. Active or passive immunization 365251140 Z23 Insomnia 285383638 G47.0 0 -STABLE ON MEDS Snoring 66528644 R06.83 After a discussion of treatment and medication options, which included considerat ion of the best practices in medicine, a medical plan was provided. The patient's opinions and concerns were included in this treatment plan and goal. -Number to sleep medicine given and patient instructed to schedule the appointmen t. Referral completed. -If this specialty office requires [facility] to schedule the appointmen t the patient will call our office back and we will have the referrals department schedule it. -Will call with any new concerns or worsening symptoms. Cough 09430166 R05 Fatigue 81227962 R53.83 -check labs-WORK ON HEALTHY EATING-chandler l w any worsening symptoms. [id number] Lizandro Montgomery MD , [facility], OFFICE [address] [place] [address] 11/06/2020 09:03:50 11/07/2020 11:21:35 Depressive disorder 04194398 F32.0 Essential hypertension 15420383 I10 After a discussion of treatment and [...] up in months. Active or passive immunization 335892664 Z23 Prediabetes 926396717 R7 3.03 Anxiety 57933029 F41.9 -discd deep breathing- can use [employer] Tek or insight timer for relaxation -continue to walk-discu ssed increase in dementia on lorazepam- follow up in one month Hypertensive disorder 38 760408 I10 [id number] Christina Cadet, RD, LDN Nutrition -[address] [address] 11/16/2020 07:59:44 11/17/2020 09:36:50 Prediabetes 279701686 R73.03 Nutrition Diagnosis: {{Excessiv e oral intake (NI 2.2) Exces sive fat intake (NI 5.6.2) Kristin ppropriate Intake of fats (NI 5.6.3) Exc essive carbohydra te intake (NI 5.8.2) Kristin ppropriate intake of types of carbohydra te (NI 5.8.3) Inc onsistent carbohydra te intake (NI 5.8.4) Kristin dequate fiber intake (NI 5.8.5) Alt ered [...] minutes or more of regular physical activity/w nenana Handouts: Prediabete s and diabetes (ADA); [place] es for Care Prediabete s; blank food diary form, Mediterran sagar Diet, 10 tips for thoughtful eating, Hunger and fullness scale, Eating right for a healthy weight, Plant based protein review (Nutrition Action) Time spent counseling : 55 minutes Patient agreed to this visit via [employer] telehealth platform due to the COVID -19 pandemic. Patient understand s this is a scheduled visit and the usual procedures with regard to billing and confidenti ality apply.Gilma ent was notified that [facility] location: homeDuring the visit the patient? s medical history and medical record were reviewed. 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 Has d/c'd former 2/day gilson ales. [...] minutes or more of regular physical activity/w nenana Handout: Anti-infla mmatory Lifestyle Time spent counseling : 45 minutes Patient agreed to this visit via [employer] platform due to the COVID -19 pandemic. Patient understand s this is a scheduled visit and the usual procedures with regard to billing and confidenti ality apply.Gilma banda was notified that the [facility] location: homeDuring the visit the patient? s medical history and medical record were reviewed. [id number] Lizandro James MD , [facility], OFFICE [address] [place] [address] 06/11/2021 09:52:24 06/11/2021 15:52:47 Adult health examination 911165525 Z00.00 see Risk Assessment and Lifestyle Change Counseling section above; Cardiovasc ular risk reduction was discussed including benefits and risks of aspirin, exercise goals, healthy eating and healthy weight . Discussion greater than 7.5 minutes. Depression screening 171 089467 Z13.31 depression screening tool administer ed, entered into emr, scored and discussed, time greater than 7.5 minutes Screening for alcohol abuse 131559184 Z13.39 Counseling 591405937 Z71 .89 Essential hypertension 84710345 I10 After a discussion of treatment and [...] 1 month FOR NURSE BP CLINIC Anxiety 02707252 F41.9 -STABLE ON PRN MEDS [id number] Lizandro James MD , [facility], OFFICE [address] [place] [address] 07/13/2021 09:17:21 07/13/2021 15:14:14 Morbid obesity 251114541 E66.01 -will work on losing wt and eating more fruits and vegiesCons idering WW. 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 While flying, get up every 1.5 hours and walk around, increase fluids, and wear compressio n stockings. Hyperlipidemia 09748325 E78.5 Cont to work on eating a mediterrae nan diet.- increase fiber -Repeat lab test in 3 months -BP clinic check next week. Stop lisinopril and start irbesartan . [id number] John Mcgraw MD , [facility], OFFICE [address] [place] [address] 09/21/2021 14:42:43 09/25/2021 10:05:03 Acute upper respiratory infection 88684984 J06.9 Educated patient that URI is a [...] failure to resolve in 2-4 weeks. Dyspnea 298976972 R06.00 [id number] Lizandro James MD , [facility], OFFICE [address] [place] [address] 10/18/2021 14:34:31 10/18/2021 15:15:12 Essential hypertension 85394757 I10 After a discussion of treatment and [...] in 2 mos Active or passive immunization 395084346 Z23 Reminded patient to get Shingles immunizati on at pharmacy today. Prediabetes 880847460 R7 3.03 Sugars in between 100-126 are [...] to see our nutritioni st. Sleep apnea 67218159 G47 .30 -get new CPAP Depressive disorder 3548 9007 F32.0 -stable on meds Leukocytosis 840304326 D 72.829 Hyperlipidemia 35209557 E78.5 Cont to work on eating a mediterrae nan diet.- increase fiber -Repeat lab -BP clinic check next week. [id number] Lizandro James MD , [facility], OFFICE [address] [place] [address] 12/18/2021 08:48:28 12/19/2021 09:29:57 Essential hypertension 23122204 I10 After a discussion of treatment and [...] up in 2 mos Mixed hyperlipidemia 267 878040 E78.2 Active or passive immunization 582545612 Z23 Reminded patient to get Flu here/ has cold today; Shingles immunizati on at pharmacy today. Common cold 65515502 J00 Cold self care measures reviewed and encouraged (fluids, steam inhalation , adequate rest). F/U if sx worsen or aren't resolving. Cough 43963947 R05.9 Prediabetes 795463872 R7 3.03 Sugars in between 100-126 are [...] would like to see our nutritioni st. [id number] MD AGUSTIN Garcia, [facility], OFFICE [address] [place] [address] 12/27/2021 14:29:50 12/27/2021 16:12:15 COVID-19 718171091 U07.1 Hypertensive disorder 38 189361 I10 Morbid obesity 686514658 E66.01 [id number] Lizandro Jmaes MD , [facility], OFFICE [address] [place] [address] 01/08/2022 11:16:09 01/15/2022 14:57:37 COVID-19 985523349 U07.1 Push fluids, rest, tylenol, chicken soup, steam, NS rinse. Follow-up if not improving in 1-weeks or sooner if increasing fever, purulent sputum develop,co ugh worsening. Mucinex to help thin secretions if desired. [id number] Lizandro James MD , [facility], OFFICE [address] [place] [address] 02/19/2022 09:09:37 02/19/2022 09:58:56 Essential hypertension 15265315 I10 After a discussion of treatment and [...] in 3 mos Active or passive immunization 863241601 Z23 Reminded patient to get Flu here/ has cold today; Shingles immunizati on at pharmacy today. Asthma 673535093 J45.90 9 - Morbid obesity 267152060 E66.01 -will work on losing wt and [...] is reasonable (on average 2 lb/month) Prediabetes 890508667 R7 3.03 Sugars in between 100-126 are [...] to see our nutritioni st. Depressive disorder 9788 9007 F32.0 -stable on meds-call w any new concerns [id number] Lizandro James MD , [facility], OFFICE [address] [place] [address] 05/03/2022 09:04:38 05/03/2022 13:57:44 Active or passive immunization 576870542 Z23 virtual today Screening mammography [address] Hi orders, due in June Essential hypertension 11545299 I10 After a discussion of treatment and [...] call for bp in 1 week. Anxiety 84032722 F41.9 -STABLE ON PRN MEDS Factor V deficiency 4320 005 D68.2 New medication was discussed today with patient including risks, benefits ,possible and expected side effects. Patient understand s and is willing to begin medication as prescribed . -Called and left message w Dr Souza office, [facility] nurse will call back w arline lin; - will call patient w osmin lin and ok to [facility] for flights over 6 ours per. While [...] d for her trip other than lovenox. LMOM for patient w this informatio n on her phone. [id number] Lizandro James MD , [facility], OFFICE [address] [place] [address] 06/04/2022 11:32:51 06/04/2022 12:07:28 Active or passive immunization 491142939 Z23 shingle- reminded Essential hypertension 00274466 I10 After a discussion of treatment and [...] Follow up in 3 mos Dry eyes 299876149 H04.[address] Whitlock- to start new eye drops Anxiety 54247191 F41.9 New medication was discussed today with patient including risks, benefits ,possible and expected side effects. Patient understand s and is willing to begin medication as prescribed . -discussed decreasing lorazepam - could increase risk of dementia- reviewed breathing- increase exercise-c all w any worsening symptoms [id number] Agnieszka Taylor , [facility], OFFICE [address] [place] [address] 09/09/2022 14:30:31 09/10/2022 11:03:38 Active or passive immunization 732950602 Z23 Shingrix:r emindedpne umo-remind ed Screening mammography 24 990323 Z12.31 will call and schedule Asthma 257010994 J45.90 9 - Depressive disorder 6856 9007 F32.0 -stable on meds-call w any new concerns Essential hypertension 56815522 I10 After a discussion of treatment and [...] 4. Follow up in 3 mos Anxiety 33431644 F41.9 New medication was discussed today with patient including risks, benefits ,possible and expected side effects. Patient understand s and is willing to begin medication as prescribed . -discussed decreasing lorazepam - could increase risk of dementia- reviewed breathing- increase exercise-c all w any worsening symptoms Multiple n odules of lung 799542102 R91.8 [id number] Lizandro James MD , [facility], OFFICE [address] [place] [address] 10/29/2022 11:59:49 10/30/2022 08:07:46 Gout 83703226 M10.9 -Repeat uric acid level, if still elevated, will discuss at that time-Hando ut given w/foods to avoid Hypertensive disorder 38 081525 I10 -BP slightly above goal today-BP at home consistent ly in range, will call w/ any elevated readings Depressive disorder 3548 9007 F32.0 -stable on meds-call w any new concerns Gastroesop hageal reflux disease 361852176 K21.9 -stable- continues to monitor diet [id number] Lizandro James MD , [facility], OFFICE [address] [place] [address] 02/14/2023 10:27:50 02/17/2023 08:30:14 Active or passive immunization 774992662 Z23 Shingrix:r emindedflu -reminded Anti-nucle ar factor detected 360259276 R76.8 After a discussion of treatment and medication options, which included considerat ion of the best practices in medicine, a medical plan was provided. The patient's opinions and concerns were included in this treatment plan and goal. -patient instructed to schedule the appointmen t. Referral completed. -If this specialty office requires [facility] to schedule the appointmen t the patient will call our office back and we will have the referrals department schedule it. -Will call with any new concerns or worsening symptoms. Morbid obesity 779752513 E66.01 -will work on losing wt and [...] is reasonable (on average 2 lb/month) Prediabetes 796584025 R7 3.03 Sugars in between 100-126 are [...] would like to see our nutritioni st. [id number] Agnieszka Taylor , [facility], OFFICE [address] [place] [address] 03/03/2023 16:46:17 03/04/2023 11:19:41 Upper respiratory infection 04423284 J06.9 Patient presents with symptoms consistent with viral infection. Discussed supportive care: pushing fluids, rest, nasal saline and Mucinex as needed. Encouraged to follow up if symptoms persist for more then 10 days or if they are worsening. Discussed natural course of viral illnesses and lack of evidence for treating with antibiotic s. Sore throat 019115664 J0 2.9 Symptoms seem viral at this point, rapid strep negative, no signs of bacterial infection on examRecomm end continuing supportive careWill contact the office for any worsening symptoms Conjunctivitis 6512839 H 10.9 Discussed likely viral conjunctiv itis, pt will start eye drops as prescribed by her eye doctorWill contact the office for any worsening symptoms [id number] Agnieszka Taylor , [facility], OFFICE [address] [place] [address] 04/07/2023 11:00:51 04/07/2023 11:42:35 Active or passive immunization 519982116 Z23 Shingrix:r emindedflu -reminded Morbid obesity 392407856 E66.01 -will work on losing wt and [...] nursing to learn to administer injection Prediabetes 193280806 R7 3.03 Sugars in between 100-126 are [...] nutritioni st. Multiple n odules of lung 768642812 R91.8 After a discussion of treatment and medication options, which included considerat ion of the best practices in medicine, a medical plan was provided. The patient's opinions and concerns were included in this treatment plan and goal. -patient instructed to schedule the appointmen t. Referral completed. -If this specialty office requires [facility] to schedule the appointmen t the patient will call our office back and we will have the referrals department schedule it. -Will call with any new concerns or worsening symptoms. Major depr essive disorder 228373644 F32.0 -stable-co ntinue w/ meds [id number] Agnieszka Taylor , [facility], OFFICE [address] [place] [address] 05/12/2023 15:18:20 05/12/2023 16:14:29 Blood coagulation disorder 28045027 D68.2 -stable Morbid obesity 197301813 E66.01 -will work on losing wt and [...] month or sooner as needed Essential hypertension 62253994 I10 After a discussion of treatment and medication options, which included considerat ion of the best practices in medicine, a medical plan was provided. The patient's opinions and concerns were included in this treatment plan and goal. 1. Discussed Blood Pressure goals. 2. BP GOAL is under 130/80. Pt is at goal. 3. Follow up in 3 mos [id number] Agnieszka Taylor , [facility], OFFICE [address] [place] [address] 08/25/2023 11:29:52 08/25/2023 15:56:43 Active or passive immunization 148374966 Z23 Shingrix:r eminded to get at pharmacy Morbid obesity 817805605 E66.01 Continue with Sokrati weight loss shot Sent to new pharmacy [...] by member of primary health care team 535134930 Z71.9 Today we discussed ways to reduce [...] er may recommend taking daily aspirin. Anxiety 44184662 F41.9 New medication was discussed today with patient including risks, benefits ,possible and expected side effects. Patient understand s and is willing to begin medication as prescribed . -discussed decreasing lorazepam - could increase risk of dementia- reviewed breathing- increase exercise-c all w any worsening symptoms Insomnia 707549852 G47.0 0 -symptoms of insonmina have worsened, increase med today to 100 mg trazodone. [id number] Lizandro James MD , [facility], OFFICE [address] [place] [address] 10/30/2023 14:28:14 10/30/2023 15:51:20 Active or passive immunization 330724081 Z23 Shingrix:r eminded to get at pharmacy Bilateral shoulder joint pain 2689739372 2495753 M25.511 After a discussion of treatment and medication options, which included considerat ion of the best practices in medicine, a medical plan was provided. The patient's opinions and concerns were included in this treatment plan and goal. -patient instructed to schedule the appointmen t. Referral completed. -If this specialty office requires [facility] to schedule the appointmen t the patient will call our office back and we will have the referrals department schedule it. -Will call with any new concerns or worsening symptoms. Morbid obesity 042634556 E66.01 Continue with Sokrati weight loss shot Sent to new pharmacy [...] month or sooner as needed Sleep apnea 17633349 G47 .30 -to use CPAP every night [id number] Catrachita Prado NP , [facility], OFFICE [address] [place] [address] 01/22/2024 09:47:50 01/22/2024 13:21:53 Active or passive immunization 873151849 Z23 Pneumo: Reminded at pharmacy 01/22/24 MWShingles : Reminded at pharmacy Anxiety 64169467 F41.9 Improved on medication Using medication infrequent ly Nausea 836379598 R11.0 Improved on medication Night sweats 92355410 R6 1 -Check labs Dyspnea on exertion [...] & is in agreement with the plan. [id number] John Mcgraw MD , [facility], OFFICE [address] [place] [address] 02/17/2024 11:56:27 02/19/2024 17:56:12 Upper respiratory infection 10260412 J06.9 Patient presents with symptoms consistent with viral infection. No evidence of pneumonia on exam. Discussed supportive care: pushing fluids, rest, nasal saline and Mucinex as needed. Encouraged to follow up if symptoms persist for more then 10 days or if they are worsening. Discussed natural course of viral illnesses and lack of evidence for treating with antibiotic s. Cough 20830679 R05.9 trial of benzonatat e during the dayrobitus sin with codeine at night/bedt saran - aware of possible sedationCX R today to r/o pneumonia Posterior rhinorrhea 758 86223 R09.82 trial of fluticason e nasal spray to decrease post nasal dripreview ed interactio n list and no interactio n with Tyrvaya nasal spray [id number] John Mcgraw MD , [facility], OFFICE [address] [place] [address] 03/08/2024 08:01:27 03/08/2024 12:19:55 Sleep apnea 94138416 G47.30 -call sleep apnea company and get new part-discu ssed medical concern for not wearing CPAP and increase risk in heart attacks and stroke Anxiety 22612065 F41.9 Nice to see you, & continue [...] concerns. Follow up in 3 months in [place], put name on wait list Blood coag ulation disorder 81043143 D68.2 -stable on as needed Essential hypertension 84363790 I10 After a discussion of treatment and medication options, which included considerat ion of the best practices in medicine, a medical plan was provided. The patient's opinions and concerns were included in this treatment plan and goal. 1. Discussed Blood Pressure goals. 2. BP GOAL is under 130/80. Pt is at goal. 3. Follow up in 3 mos Prediabetes 268989362 R7 3.03 a1c is 5.2 improved Sugars [...] see our nutritioni st. Obese class III 48430259 5 E66.813 -continue to work on weight loss and exercise -discussed medical concern for not wearing CPAP and increase risk in heart attacks and stroke [id number] KEVON TAYLOR FP, [facility], OFFICE [address] [place] [address] 04/06/2024 10:26:02 04/06/2024 11:10:32 Adult health examination 671508145 Z00.00 Well 63 year old femaleDue for mammo in ronic illnesses largely stable and monitored, compliant with medication s Depression screening 171 657578 Z13.31 Depression screening tool administer ed: reviewed, negative Screening for alcohol abuse 848272829 Z13.39 Alcohol use screening tool administer ed: reviewed Advance di rective discussed with patient 220225892 Z71.89 Advanced Care Planning1. Advanced care planning was discussed for {{less than* more than}} 15 minutes. 2. Participan ts included {{patient* patient and family pat ient's family pat ient's surrogate} } and they were given an opportunit y to decline discussion . 3. Health Care Proxy {{was was not*}} discussed. 4. Patient {{has* has not}} completed Health Care Proxy form. {{It was It was not*}} given to take home. 5. Names(s) relationsh ip(s) of Health Care Proxy: 6. [facility] {{was was not*}} discussed. 7. Patient {{has has not*}} completed [facility]OL[facility] form. 8. Details of discussion : 9. Follow up needed: Active or passive immunization 810361464 Z23 PPV and shingles: reminded to get at pharmacy Anxiety 54038723 F41.9 Stable with fluoxetine 40mg daily, buspirone 10mg BID, lorazepam 0.5mg as needed. Would like to get on automatic refills, discussed 15 tabs monthly so tabs don't build up. Essential hypertension 39124957 I10 BP stable and at goal < 130/80Cont inue 1/2 tab irbesartan 150mg-HCTZ 12.5mg Continue to strive for/ maintain a healthy weight by engaging in 150 weekly minutes of aerobic exercise and consuming a diet low in sodium. When you take in lots of sodium, your body will retain water and this will raise your blood pressure. Consider looking into the DASH diet. A diet that is rich in fruits, vegetables , legumes, and low-fat dairy products and low in snacks, sweets, and red meats can help to lower your blood pressure. Ex-smoker 6723591 Z87.[address] Solo, LDCT with stable nodules. Factor V deficiency 4320 [address] Covarrubias, IV Lovenox before 6-hours flights. Sleep apnea 74018568 G47 .30 Continue CPAP. Trying to restart Wegovy 0.25mg weekly pending INS coverage. Bursitis of shoulder 239 655090 M75.51 R > L, followed by [facility], s/p shoulder injections with considerab le relief. Obesity 482307322 E66.9 Restart Wegovy pending INS coverage. Last fasting sugar nl. Health Concerns Section Related Observation LastModified by Organization Detai ls LastModified Time None Recorded Concern Status LastModified by Organization Details LastModified Time None Recorded Advance Directives Directive None Recorded Payers Encounter Date Sequence Insurance Name Policy Number Policy Gregorio Covered Member ID Gregorio Member ID Guarantor Name 10/30/2023 1 [facility] [id number] Clay Chapman [id number] Catrachita Chapman 01/22/2024 1 [place] [employer] Catrachita Chapman [id number] Catrachita Chapman 01/22/2024 1 [facility] (MEDICARE REPLACEMENT/A DVANTAGE - PPO) [id number] Catrachita Chapman [id number] Catrachita Chapman 02/17/2024 1 [facility] (MEDICARE REPLACEMENT/A DVANTAGE - PPO) [id number] Catrachita Chapman [id number] Catrachita Chapman 03/08/2024 1 [facility]: MEDICARE PPO BLUE (MEDICARE REPLACEMENT PPO) [id number] Catrachita Chapman [id number] Catrachita Chapman 04/06/2024 1 [facility]: MEDICARE PPO BLUE (MEDICARE REPLACEMENT PPO) [id number] Catrachita Chapman [id number] Catrachita Chapman Notes Date Note Type Note Provider Name and Address Organization Details Recorded Time 4 text/html ShoulderReported bypatient.Initial Location:anterior Current location:top Initial [...] sobnot checking bp at home kortney - alanna blankenship- 30 oldestjohn- son engaged, cher James MD [address] [place] [address], [phone], [facility] 10/30/2023 19:47:36 4 text/html ShoulderReported bypatient.Initial Location:anterior Current location:top Initial [...] happening during day.dad d at 51 dt [place]/congenital issue Obesity -started Wegovy in 2022 at [employer] in [facility] wegovy lost 20 lbs in last year.nausea comes and goes, But is manageable OSAnot wearing - discussed importance, She will start Anxiety and depressionwell controlled Shoulder surgery- at [facility] Jesse getting 11/04[employer] school 10/30/23 b/l shoulder [...] at home kortney - engaged, alanna- 30 bonjolibrado- son engaged, cher Prado NP [address] [place], [address], [facility] 01/25/2024 16:37:20 5 text/html Cough sxs on going since approx x 3 weeks nowPt c/o cough productive w/ SOB and wheezing, diff sleeping, crusty eye, rash face resolved, diarrhea no feverDenies: sore throat, sinus pressure, ear/face pain, vomitingNo recent testing -hot tea and delsym at night not helpfulhas post nasal dripusing albuterol - did not helpnon smoker no vaping John Mcgraw MD [address] [place], [phone], [facility] 02/17/2024 14:38:48 5 text/html ShoulderReported bypatient.Initial Location:anterior Current location:top Initial [...] of wegovyhas gone to see hypnotist and ocean biologist, has done WT watchers, and gains wt [...] blue thinks dt the cold weatherstress w tenant- feels wants increase in buspironeexerc- nonehas tenant [...] happening during day.dad d at 51 dt [place]/congen[place] issue Obesity -started Wegovy in 2022 at [employer] in [facility] wegovy lost 20 lbs in last year.nausea comes and goes, But is manageable OSAnot wearing - discussed importance, She will start Anxiety and depressionwell controlled Shoulder surgery- at [facility] getting 11/04[employer] school 10/30/23 b/l shoulder [...] - engaged, alanna- 30 oldestjohn- son engaged, cher Lopez Ravi Mcgraw MD [address] [place], [address], [facility] 03/08/2024 09:38:25 5 text/html Risk Assessment and Lifestyle Change Counseling (Medicare)Reported bypatient.Functional Status:Patient does not have trouble hearing the television or radio when others do not.; Patient does not have to strain or struggle to hear/understand conversations; Patient does not need help with preparing meals, transportation, shopping, taking medicine, managing finances, or other activities of daily living.; Patient does not have visual loss that interferes with daily activities; Does not live alone; Patient was not unsteady and did not take longer than 30 seconds during the timed get up and go test.; Patient reports no falls in the past 6 months. Diet:Counseled about appropriate portion size; Counseled about eating a diet low in trans and saturated fats and high in fiber, fruits and vegetables Exercise counseling:Discussed the importance of daily physical activitySocial DeterminantsReported bypatient.Living situationno concerns Patient presents for wellness visit.Wegovy not covered by INS. [place] has been denied.Followed by [employer] for PAP, Dr. Self.Followed by heme for factor V, Dr. Covarrubias.Followed by pulm for nodules and inflammation, Dr. Solo.Followed by ortho for shoulder bursitis, [facility].Lives with at home. 34, 31, 26 year-old children. No grandchildren yet. KEVON TAYLOR [address] [place], [phone], [facility] 04/06/2024 11:20:18 OBGyn Episode No OBEpisode recorded.
--- OUTSIDE RECORDS SUMMARY | 2024-04-21 15:17 | XMS_ITS | Continuity of Care Document ---
Author Organization [facility] Address [address] Name Relationship Address Phone ANNA, ELIZABETH Personal Relationship Unknown Un available STRYCHARZ, ELIZABETH Personal Relationship Unknown Un available STRYCHARZ, ELIZABETH Personal Relationship Unknown Un available STRYCHARZ, ELIZABETH Personal Relationship Unknown Un available STRYCHARZ, ELIZABETH Personal Relationship Unknown Un available STRYCHARZ, ELIZABETH spouse Unknown Unavailable STRYCHARZ, ELIZABETH Personal Relationship Unknown Un available STRYCHARZ, ELIZABETH Personal Relationship Unknown Un available STRYCHARZ, ELIZABETH Personal Relationship Unknown Un available STRYCHARZ, ELIZABETH Personal Relationship Unknown Un available STRYCHARZ, ELIZABETH Personal Relationship Unknown Un available STRYCHARZ, ELIZABETH Personal Relationship Unknown Un available Care Team Providers Care Director Of Operations Home Health Name Role Phone Catrachita Prado NP Primary Care Physician [phone] Encounter [facility] Date(s): 03/04/24 - 04/03/24 [facility] [address] [place] [address] Attending Physician: Venancio Durham Admitting Physician: Venancio Durham Referring Physician: Venancio Durham Encounter Type: Triage Allergies, Adverse Reactions, Alerts No Known Allergies Medications Citracal + D 315 mg-250 intl units oral tablet 1 tablet, By Mouth, 2 times a day, # 180 tablet, 2 Refills, Maintenance, 09/25/17 8:30:23 AM EDT, Tablet, [facility], 1 tablet By Mouth 2 times a day,x90 days Start Date: 09/25/17 Stop Date: 06/22/18 Status: Ordered Quantity: 180.0 Unit: tablet Repeat number: 3 enoxaparin 40 mg/0.4 mL injectable solution See Instructions, INJECT 40 MG UNDER THE SKIN DAILY PRIOR TO FLIGHT AND PRIOR TO RETURN FLIGHT, # 2mL, 0 Refills, Maintenance, 11/19/23 9:58:00 AM EDT, [id number], 163, cm, 03/06/23 14:25:00 EST, Height, 105, [...] 0 Refills, Maintenance, 11/12/23 4:25:00 PM EDT, [id number], 163, cm, 03/06/23 14:25:00 EST, Height, 105, kg, 03/06/23 14:25:00 EST, Dry Weight Start Date: 11/12/23 Status: Ordered Quantity: 2.0 Unit: each Repeat number: 1 Lovenox 40 mg/0.4 mL subcutaneous solution 0.4 mL = 40 mg, Subcutaneous Injection, Daily, # 0.8 mL, 0 Refills, Maintenance, 12/02/11 4:01:04 PM EDT, Solution, [facility] Start Date: 12/02/11 Stop Date: 12/04/11 Status: [...] Team Personnel Name: Catrachita Prado NP Position: [facility] Outreach Member Role: PCP Address: [address] [place] [address] Telecom: Care Team Related Persons Name: ELIZABETH CASTILLO Insurance Providers Guarantor name: CATRACHITA CASTILLO Health Plan Information #: 1 Payer: [employer] Member Number: NA Policy Number: NA Group Number: [id number]
== END 2024-04-21 13:05 | disposition home or self-care (01) ==
LOC: HO.RESP 13:04
PROVIDERS: PCP Nurse Practitioner; Visit Provider Hospitalist
DX: R06.2 Wheezing (principal)
CPT/HCPCS: 94010; 94640; 94727; 94729

== ENCOUNTER → 2024-04-21 13:13 | Outpatient (BNV) | payer MEDICARE, SELFPAY | PROVIDERS: PCP Nurse Practitioner; Visit Provider Internal Medicine Pulmonary Disease | DX: R06.2 Wheezing (principal) | CPT/HCPCS: 94060; 94727; 94729 ==

== ENCOUNTER 2024-08-02 10:15 | Outpatient (AMB) | payer MEDICARE, SELFPAY ==
[2024-08-02 10:31] VITALS: BP 136/66; PULSE 74; O2SAT 95; BMI 39.2
--- NOTE | 2024-08-02 10:31 | A.OFFVIS_ITS ---
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 Apparently she had an almost CT scan of the chest. Back in 2021 the patient was having cough. She did have a CT scan of the chest which I personally reviewed. There was not at [facility] radiology imaging. The patient had multiple pulmonary nodules largest 8 mm in size. Some of the nodules appear to be ground-glass in nature and some degree of pneumonitis. In addition to that she did have some scarring of the right mid and lower area. Primarily in the periphery. The patient denied any radiation exposure or any history of interstitial lung disease. As far as exposures the patient has had allergy testing that has been positive. 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 She quit smoking many years ago. Based on her abnormal CT scan she had a repeat CT scan 01/29/2023 which I personally reviewed. Some of the ground- glass nodular densities subsided suggesting likely that it was a hypersensitivity type of reaction. Could also been smoldering infection. Still though she does have multiple pulmonary nodules largest 1 measuring 6 mm in size. Bilaterally. The patient does have a smoking history and therefore needs to have a repeat CT scan 01/30/2024. The patient also states that she has episodes of wheezing. Intermittently. She does use a rescue inhaler. She also has nasal congestion suggesting chronic allergic rhinitis. She does use nasal sprays. Will go ahead and start her on Singulair to see if that provides her some relief indeed she may have component of asthma. Although currently her respiratory exam is unremarkable. The patient can use the singular seasonally. In addition to that just before leaving the patient mentioned that she just remove the tick this morning. She has not aware of how long she had it for. But did leave a rash. This is concerning for the possibility of tick-borne diseases. The patient throw away the taking therefore we do not have any idea of the appearance. She has not sure if it looked like a deer tick. She is going to call her primary care doctor. Meantime I did send her doxycycline and I did put him for Lyme test. 03/11/2024 the patient is here for a pulmonary follow-up visit. Overall she is doing okay. She still having coughing spells. Sometimes the coughing spells can be pretty significant. She does have the rescue inhaler that she does not use it regularly. She has been using the singular. The patient did have a CT scan of the chest recently and we did personally review it and we also reviewed the other last 2 CT scans prior to that. She has underlying pulmonary nodules that appeared to be fairly unchanged. Although she does have areas of ground- glass opacities suggesting some pneumonitis primarily in the right hemithorax. On further questions she is exposed to mold. She does have a issue with her bathroom that does have ?black mold?. 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 Based on her pulmonary nodules appeared to be inflammatory in nature. Her cough also appears to be more bronchospastic. Will going to start her on Wixela and will also request blood work including h ypersensitivity panel allergy testing for mold among others. Will also have the patient have undergo pulmonary function studies and then will reassess in afterwards. 08/02/2024 the patient is here for pulmonary follow-up visit. Overall the patient has been doing well. She is using the Wixela. Although she is not sure why she is using it. I did explain to her that she did have some wheezing on exam. The patient did undergo pulmonary function studies demonstrating a reversible obstruction consistent with a diagnosis of asthma. Therefore she should continue with Wixela for now. We can also consider inhaled combination inhalers as needed. Will talk about that further during the next visit. Her last CT scan was back in February 2024 demonstrating pulmonary nodules. Will plan to repeat a CAT scan then at that point we can decide about changing inhalers. Otherwise the patient is doing well will follow-up after her next visit. If any issues arise she can always call for an earlier assessment. [facility] Medical History (Updated 03/11/24 @ 19:57 by Christian Solo MD) Pneumonitis SCOTT (obstructive sleep apnea) Wheezing Rash Pulmonary nodules Social History Patient Tobacco Use Status: Former Tobacco user Tobacco use type: Cigarette Years Smoked: 9 Years Review of Systems Const Denies fever(s) Eyes Reports no additional complaints ENT Reports nasal congestion Card Denies chest pain and Reports dyspnea on exertion Resp Reports cough, Reports dyspnea on exertion and Reports wheezing GI Reports no additional complaints Musc Reports no additional complaints Skin/Breast Reports rash Neuro Reports no additional complaints Krzysztof/Lymph Reports no additional complaints Aller/Immun Reports wheezing Physical Exam Vital Signs: Last Vital Signs Pulse 74 08/02/24 10:31 BP 136/66 08/02/24 10:31 Pulse Ox 95 08/02/24 10:31 Oxygen Delivery Method Room Air 08/02/24 10:31 BMI result Body Mass Index 39.2 Const General: comfortable Orientation/consciousness: patient oriented x3 HEENT Head: Yes normocephalic Neck Neck: Yes full ROM and Yes supple Chest Chest palpation & inspection: normal inspection of the chest Resp Effort & Inspection: normal respiratory effort Auscultation: clear to auscultation bilaterally Cardio Heart sounds: S1 normal heart sound present and S2 normal heart sound present GI Palpation (GI): Soft to palpation Skin Lesions: lesion noted Neuro General: patient oriented x3 Extrem General: Yes no clubbing, cyanosis or edema Assessment & Plan Assessment & Plan (1) Pulmonary nodules: Code(s): R91.8 - Other nonspecific abnormal finding of lung field Category: Medical (2) Wheezing: Code(s): R06.2 - Wheezing Category: Medical (3) SCOTT (obstructive sleep apnea): Code(s): G47.33 - Obstructive sleep apnea (adult) (pediatric) Category: Medical (4) Pneumonitis: Code(s): J98.4 - Other disorders of lung Category: Medical (5) Allergies: Code(s): T78.40XA - Allergy, unspecified, initial encounter Category: Medical Qualifiers: Encounter type: initial encounter Qualified Code(s): T78.40XA - Allergy, unspecified, initial encounter Plan continue JOSE continue Singulair continue Wixela daily CT chest 02/2025 f/U 6-8 months Orders: Orders CT chest wo IV con 02/10/25 R91.8 - Other nonspecific abnormal finding of lung field Coding Level of Care Code Est Pt Level 4 (63048) Complex EM visit Add On G2211 Diagnoses Pulmonary nodules R91.8 Wheezing R06.2 SCOTT (obstructive sleep apnea) G47.33 Pneumonitis J98.4 Allergy, initial encounter T78.40XA Encounter type: initial encounter Time Spent (min) 17
--- OUTSIDE RECORDS SUMMARY | 2024-08-02 11:24 | XMS_ITS | Encounter Summary ---
Author Organization [facility] Address [address] [place] [address] Care Team Providers Care Construction Management Assistant Name Role Phone Unavailable Primary Care Provider Unavailabl e Encounter Details Date Type Department Care Team (Late st Contact Info) Description 12/25/2023 Lab Requisition [facility] [address] [facility] [place] [id number] Dilma Hart NP [address] [facility] [address] [place] [address] Urinary tract infection, site not specified Social History Tobacco Use Types Packs/Day Years Used Date Smoking Tobacco: Never Assessed Comments Unknown Sex and Gender Information Value Date Recorded Sex Assigned at Not on file Legal Sex Female 7:36 AM EST Gender Identity Not on file Sexual Orientation [...] Normal Urogenital mireya. 12/25/2023 12:48 PM EST [facility] Other Urine specimen from urinary conduit / Unknown 12/24/2023 12/25/2023 11:54 AM EST Dilma Hart NP LAB MICROBIOLOGY - GENERA L ORDERABLES Final Result [facility] ([facility] [address] [place] [address], documented in this encounter Visit Diagnoses Diagnosis Urinary tract infection, site not specified documented in this encounter
== END 2024-08-02 11:08 | disposition home or self-care (01) ==
LOC: HO.HPS 10:16
PROVIDERS: PCP Nurse Practitioner; Visit Provider Hospitalist
DX: R91.8 Other nonspecific abnormal finding of lung field (principal); R06.2 Wheezing; G47.33 Obstructive sleep apnea (adult) (pediatric); J98.4 Other disorders of lung; T78.40XA Allergy, unspecified, initial encounter
CPT/HCPCS: 99214; G2211

== ENCOUNTER → 2024-08-02 10:15 | Outpatient (BNVA) | payer MEDICARE, SELFPAY | PROVIDERS: PCP Nurse Practitioner; Visit Provider Hospitalist | DX: R91.8 Other nonspecific abnormal finding of lung field (principal); R06.2 Wheezing; J98.4 Other disorders of lung; T78.40XA Allergy, unspecified, initial encounter; G47.33 Obstructive sleep apnea (adult) (pediatric); Z87.891 Personal history of nicotine dependence | CPT/HCPCS: 99212 ==